=== PATIENT | female | born 1940 | race Caucasian/White ===

== ENCOUNTER 2019-08-16 08:59 | Outpatient (CLI) | payer MEDICARE, SELFPAY ==
--- NOTE | 2019-08-16 09:17 | ECG_ITS ---
Measurements Intervals [place] Rate: 63 P: 76 DE: 203 QRS: 5 QRSD: 89 T: 44 QT: 407 QTc: 417 Interpretive Statements SINUS RHYTHM WITH SINUS ARRHYTHMIA BORDERLINE AV CONDUCTION DELAY MINIMAL Q WAVES- HIGH LATERAL LEADS BASELINE ARTIFACT- I, III, AVL, V5-V6 BORDERLINE ECG Electronically Signed On 08-16-2019 12:05:28 CDT by Pb Alves D.O.
[2019-08-16 12:03] LABS: Blood Urea Nitrogen 18 mg/dL (7-17); Calcium 9.1 mg/dL (8.4-10.2); Carbon Dioxide 23 mmol/L (22-30); Chloride 103 mmol/L (98-107); Estimated Glomerular Filt Rate > 60; Glucose 114 mg/dL (65-105); Potassium 4.3 mmol/L (3.4-5.0); Sodium 133 mmol/L (137-145)
== END 2019-08-16 09:00 | disposition home or self-care (01) ==
PROVIDERS: PCP Internal Medicine; Visit Provider Internal Medicine
DX: I10 Essential (primary) hypertension (principal); I49.8 Other specified cardiac arrhythmias
CPT/HCPCS: 36415; 80048; 93005

== ENCOUNTER 2019-08-31 13:46 | Outpatient (CLI) | payer MEDICARE, SELFPAY ==
--- NOTE | 2019-08-31 14:01 | ECHO_ITS ---
Patient Info Name: Nikia Zeng Age: 79 years : 1940 Gender: Female Ht: 66 in Wt: 145 lbs BSA: 1.76 m2 HR: 71 bpm BP: 176 / 83 mmHg Heart Rhythm: Sinus Rhythm Technical Quality: Good Exam Date: 08/31/2019 2:14 PM Exam Location: [facility] Pulmonary Patient Status: Outpatient Admit Date: 08/31/2019 Staff Ordering Physician: Dante Franklin MD Sales Service Rep: Duran Meza, RDCS, RT Attending Provider: Dante Franklin MD Exam Type: CA echo doppler color flow Study Info Indications I10 - Essential (primary) hypertension Complete two-dimensional, color flow and Doppler transthoracic echocardiogram is performed. Summary 1. Left ventricular chamber dimension is normal. 2. Left ventricular systolic function is normal, estimated at 55-60%. 3. Trivial mitral and pulmonic insufficiency. 4. Thickened appearance to apparent heart. Left Ventricle Left ventricular chamber dimension is normal. Left ventricular systolic function is normal, estimated at 55-60%. The left ventricular diastolic function is normal. Right Ventricle Right ventricular chamber dimension is normal. Left Atria Left atrial chamber dimension is normal. Right Atria Right atrial chamber dimension is normal. Aortic Valve The aortic valve is normal. Pulmonic Valve The pulmonic valve is normal. There is mild pulmonic regurgitation. Mitral Valve The mitral valve has normal leaflets. There is trace mitral valve regurgitation. Tricuspid Valve The tricuspid valve leaflets are normal. Pericardium/Pleural The pericardium appears thickened pericardium. Aorta The aortic root size at the sinus of Valsalva is normal. Left Ventricular Outflow Tract Name Value Normal LVOT 2D LVOT Diameter 2.0 cm LVOT Doppler LVOT Peak Gradient 4 mmHg LVOT Mean Gradient 2 mmHg LVOT VTI 22 cm LVOT VTI/AV VTI Ratio 0.8 LVOT Stroke Volume 68 ml LVOT CO 4.7 l/min LVOT CI 2.7 l/min/m2 Pulmonic Valve Name Value Normal PV Doppler PV Peak Gradient 4 mmHg Mitral Valve Name Value Normal MV Doppler MV Decel Garrett 268 cm/s2 MV PHT 68 ms MV Area (PHT) 3.2 cm2 4.0-5.0 MV Diastolic Function MV E Peak Velocity 63 cm/s MV A Pea
== END 2019-08-31 13:47 | disposition home or self-care (01) ==
PROVIDERS: PCP Internal Medicine; Visit Provider Internal Medicine
DX: R94.31 Abnormal electrocardiogram [ECG] [EKG] (principal); I10 Essential (primary) hypertension
CPT/HCPCS: 93306

== ENCOUNTER 2020-04-09 07:38 | Outpatient (CLI) | payer MEDICARE, SELFPAY ==
[2020-04-09 08:02] LABS: Basophils Absolute Auto 0.1 K/mm3 (0.0-0.1); Basophils Percent Auto 0.9 % (0.2-1.2); Eosinophils Absolute Auto 0.2 K/mm3 (0-0.3); Eosinophils Percent Auto 2.7 % (0-4.4); Hematocrit 38.7 % (37.0-47.0); Hemoglobin 12.3 g/dL (12.0-15.0); Immature Granulocyte Absolute 0.04 K/mm3 (0.00-0.031); Immature Granulocyte Percent A 0.5 % (0-0.5); Lymphocytes Absolute Auto 3.33 K/mm3 (0.9-3.2); Lymphocytes Percent Auto 38.1 % (18.3-44.2); Mean Corpuscular HGB Conc 31.8 g/dl (32-36); Mean Corpuscular Hemoglobin 28.5 pg (26-34); Mean Corpuscular Volume 89.8 fl (80-100); Monocytes Absolute Auto 0.8 K/mm3 (0.1-0.6); Monocytes Percent Auto 8.6 % (2.6-8.5); Neutrophils Absolute Auto 4.3 K/mm3 (1.3-6.7); Neutrophils Percent Auto 49.2 % (45.5-73.1); Platelet Count Result 277 k/mm3 (150-375); Red Blood Count 4.31 M/mm3 (4.2-5.4); Red Cell Distribution Width 13.5 % (11.5-14.5); White Blood Count 8.7 K/mm3 (4.5-10.0)
[2020-04-09 08:07] LABS: Add Urine Microscopic? YES; Appearance Urine Turbid (Clear); Bacteria Urine Trace /hpf; Bilirubin Urine Negative (Negative); Blood Urine 3+ (Negative); Color Urine Yellow (Yellow); Glucose Urine UA Negative (Negative); Ketones Urine Negative (Negative); Leukocyte Esterase Ur 3+ LEU/UL (NEGATIVE); Mucus Urine Rare /lpf; Nitrate Urine Positive (Negative); Protein Urine 3+ mg/dL (Negative); RBC Urine >75 /hpf (0-2); Specific Grav Ur 1.011 (1.001-1.035); Squamous Epithelial Cell Urine Many /hpf (Few); Urobilinogen Urine Negative mg/dL (<2.0); WBC Urine >75 /hpf (0-3)
[2020-04-09 08:19] LABS: Alanine Aminotransferase 18 U/L (4-35); Albumin Level 3.7 g/dL (3.5-5.1); Alkaline Phosphatase 39 U/L (38-126); Anion Gap 6 mmol/L (8-16); Aspartate Amino Transferase 22 U/L (14-36); Bilirubin,Total 0.3 mg/dL (0.2-1.3); Blood Urea Nitrogen 15 mg/dL (7-17); Calcium 9.2 mg/dL (8.4-10.2); Carbon Dioxide 26 mmol/L (22-30); Chloride 107 mmol/L (98-107); Cholesterol 205 mg/dL (0-200); Estimated Glomerular Filt Rate > 60; Glucose 98 mg/dL (65-105); HDL Direct 55 mg/dL; Sodium 139 mmol/L (137-145); Triglycerides 208 mg/dL (<150)
[2020-04-09 08:30] LABS: LDL Cholesterol Direct 123 mg/dL
[2020-04-09 11:28] LABS: Vitamin D 25 Hydroxy 53.3 ng/mL
== END 2020-04-09 07:39 | disposition home or self-care (01) ==
PROVIDERS: PCP Internal Medicine; Visit Provider Internal Medicine
DX: E55.9 Vitamin D deficiency, unspecified (principal); E78.2 Mixed hyperlipidemia; F41.9 Anxiety disorder, unspecified; I10 Essential (primary) hypertension; M81.0 Age-related osteoporosis without current pathological fracture
CPT/HCPCS: 36415; 80053; 80061; 81001; 82306; 84443; 85025

== ENCOUNTER → 2020-04-15 09:25 | Outpatient (REF) | payer MEDICARE, SELFPAY | LOC: ANHLAB 09:25 | PROVIDERS: PCP Internal Medicine; Visit Provider Nurse Practitioner | DX: L98.9 Disorder of the skin and subcutaneous tissue, unspecified (principal); L01.02 Bockhart's impetigo; L57.0 Actinic keratosis | CPT/HCPCS: 88305 ==

== ENCOUNTER 2020-04-24 09:45 | Outpatient (CLI) | payer MEDICARE, SELFPAY ==
[2020-04-24 10:15] LABS: Add Urine Microscopic? YES; Appearance Urine Cloudy (Clear); Bacteria Urine Trace /hpf; Bilirubin Urine Negative (Negative); Blood Urine 3+ (Negative); Color Urine Yellow (Yellow); Glucose Urine UA Negative (Negative); Ketones Urine Negative (Negative); Leukocyte Esterase Ur 3+ LEU/UL (NEGATIVE); Mucus Urine Rare /lpf; Nitrate Urine Positive (Negative); Protein Urine 2+ mg/dL (Negative); RBC Urine >75 /hpf (0-2); Specific Grav Ur 1.009 (1.001-1.035); Squamous Epithelial Cell Urine Many /hpf (Few); Urobilinogen Urine Negative mg/dL (<2.0); WBC Clumps Urine Present /HPF; WBC Urine >75 /hpf (0-3)
== END 2020-04-24 09:46 | disposition home or self-care (01) ==
LOC: ANHLAB 09:46
PROVIDERS: PCP Internal Medicine; Visit Provider Internal Medicine
DX: N39.0 Urinary tract infection, site not specified (principal)
CPT/HCPCS: 81001

== ENCOUNTER 2020-05-27 08:20 | Outpatient (CLI) | payer MEDICARE, SELFPAY ==
--- NOTE | ~2020-05-27 | CT_ITS ---
EXAMINATION: CT abdomen pelvis wo/w con DATE: 05/27/2020 09:38 INDICATION: Gross hematuria TECHNIQUE: Computed tomography (CT) of the abdomen and pelvis was performed without intravenous contr ast. CT of the abdomen and pelvis was then performed with a total of 130 mL Omnipaque 350 intravenous contrast using a double-bolus technique for simultaneous opacification of the renal parenchyma and r enal collecting system. The dose-length product (DLP) was 775.35 mGy-cm. Automated exposure control a nd iterative reconstruction technique were employed. COMPARISON: None FINDINGS: Minimal dependent atelectasis is present in the lung bases. The heart size is normal. There are nodules measuring 5 mm (left lower lobe, image 27) in the visualized lung bases. The liver, sple en, pancreas, gallbladder, and adrenal glands are normal. There is a 12 mm hemorrhagic cyst in the le ft mid kidney. Additional hypoattenuating lesions in the kidneys, measuring up to 5 mm on the right, are too small to characterize but likely represent cysts. No stones are identified in the kidneys, ur eters, or bladder. There is no hydronephrosis or hydroureter. There is a 4.6 x 4.5 cm mass of the rig ht posterior bladder arising from the superior bladder wall. There is no free intraperitoneal gas or evidence of bowel obstruction. No pathologically enlarged abdominal or pelvic lymph nodes are identif ied. Colonic diverticulosis is present without evidence of diverticulitis. Appendix is surgically abs ent. There is a fat-containing ventral hernia just superior to the umbilicus. There is moderate lumba r spondylosis. There is questionable mild enlargement of the cervix. IMPRESSION: 1. 4.6 cm mass arising from the right superior bladder wall, consistent with urothelial carcinoma. 2. Indeterminate of the visualized lower lobes measuring up to 5 mm. 3. Possible enlargement of the cervix. Recommend pelvic ultrasound and/or direct visualization. Reviewed, dictated and finalized at location B. IMPRESSION: 1. 4.6 cm mass arising from the right superior bladder wall, consistent with ur othelial carcinoma. 2. Indeterminate of the visualized lower lobes measuring up to 5 mm. 3. Possible enlargement of the cervix. Recommend pelvic ultrasound and/or direc t visualization.
[2020-05-27 09:12] LABS: Estimated Glomerular Filt Rate 54
== END 2020-05-27 08:21 | disposition home or self-care (01) ==
PROVIDERS: PCP Internal Medicine; Visit Provider Urology
DX: R31.0 Gross hematuria (principal); N32.9 Bladder disorder, unspecified; K43.9 Ventral hernia without obstruction or gangrene; M47.816 Spondylosis without myelopathy or radiculopathy, lumbar region
CPT/HCPCS: 74178; Q9967

== ENCOUNTER 2020-06-10 10:24 | Outpatient (CLI) | payer MEDICARE, SELFPAY ==
[2020-06-10 11:06] LABS: Basophils Absolute Auto 0.1 K/mm3 (0.0-0.1); Basophils Percent Auto 1.1 % (0.2-1.2); Eosinophils Absolute Auto 0.1 K/mm3 (0-0.3); Eosinophils Percent Auto 1.9 % (0-4.4); Hematocrit 40.2 % (37.0-47.0); Hemoglobin 12.6 g/dL (12.0-15.0); Immature Granulocyte Absolute 0.02 K/mm3 (0.00-0.031); Immature Granulocyte Percent A 0.3 % (0-0.5); Immature Platelet Fraction Pct 7.1 % (0.9-11.2); Lymphocytes Absolute Auto 2.66 K/mm3 (0.9-3.2); Lymphocytes Percent Auto 35.3 % (18.3-44.2); Mean Corpuscular HGB Conc 31.3 g/dl (32-36); Mean Corpuscular Hemoglobin 28.5 pg (26-34); Mean Platelet Volume 10.6 fl (7.4-10.4); Monocytes Absolute Auto 0.9 K/mm3 (0.1-0.6); Monocytes Percent Auto 11.3 % (2.6-8.5); Neutrophils Absolute Auto 3.8 K/mm3 (1.3-6.7); Neutrophils Percent Auto 50.1 % (45.5-73.1); Platelet Count Result 284 k/mm3 (150-375); Red Blood Count 4.42 M/mm3 (4.2-5.4); Red Cell Distribution Width 13.8 % (11.5-14.5); White Blood Count 7.5 K/mm3 (4.5-10.0)
[2020-06-10 11:12] LABS: Anion Gap 5 mmol/L (8-16); Blood Urea Nitrogen 16 mg/dL (7-17); Carbon Dioxide 27 mmol/L (22-30); Chloride 103 mmol/L (98-107); Estimated Glomerular Filt Rate > 60; Glucose 95 mg/dL (65-105); Potassium 4.3 mmol/L (3.4-5.0); Sodium 135 mmol/L (137-145)
== END 2020-06-10 10:25 | disposition home or self-care (01) ==
LOC: ANHSURGERY 10:25
PROVIDERS: PCP Internal Medicine; Visit Provider Urology
DX: Z01.812 Encounter for preprocedural laboratory examination (principal); R31.0 Gross hematuria
CPT/HCPCS: 36415; 80048; 85025; 85055; 85610; 85730; 87086

== ENCOUNTER → 2020-06-14 02:05 | Outpatient (CLI) | payer MEDICARE, SELFPAY ==
[2020-06-14 19:16] LABS: SARS-CoV-2 RNA PCR Negative
== END ==
PROVIDERS: PCP Internal Medicine; Visit Provider Urology
DX: Z01.812 Encounter for preprocedural laboratory examination (principal); Z20.822 Contact with and (suspected) exposure to COVID-19
CPT/HCPCS: C9803; U0003; U0005

== ENCOUNTER → 2020-06-16 13:38 | Outpatient (CLI) | payer MEDICARE, SELFPAY ==
--- NOTE | ~2020-06-16 | MM_ITS ---
EXAMINATION: MM screening reed BI w ramses HISTORY: Screening TECHNIQUE: Craniocaudal and mediolateral oblique 3-D tomosynthesis images were obtained and synthetic 2-D images were generated. CAD analysis was submitted and interpreted. COMPARISON: Comparison to multiple prior studies sequentially, with oldest reviewed study dated 03/13. BREAST PARENCHYMAL COMPOSITION: The breasts are heterogeneously dense, which may obscure small masses . FINDINGS: There is no evidence of suspicious mass, calcification, or architectural distortion to sugg est malignancy in either breast. There has been no suspicious interval change. IMPRESSION: 1. No mammographic evidence of malignancy. 2. Recommend routine screening mammography in one year. BI-RADS Category 1: Negative Reviewed, dictated and finalized at location A.
== END ==
PROVIDERS: PCP Internal Medicine; Visit Provider Nurse Practitioner Obstetrics & Gynecology
DX: Z12.31 Encounter for screening mammogram for malignant neoplasm of breast (principal)
CPT/HCPCS: 77063; 77067

== ENCOUNTER 2020-06-17 00:47 | Day surgery (SDC) | payer MEDICARE, SELFPAY ==
[2020-06-05 13:32] VITALS: BMI 23.1
[2020-06-17] VITALS (12 sets, daily range): BP systolic 117–150; BP diastolic 53–71; PULSE 51–74; RESP 12–17; TEMP 36.3–36.7; O2SAT 97–100
--- NOTE | 2020-06-17 11:40 | WPDHPUPDATE1 ---
History and Physical Update Update Date/Time: 06/17/20 11:40 History and Physical has been reviewed, including an updated exam of the patient. There are NO changes in the patient's condition. Risks, benefits, and alternatives have been discussed and questions answered. Patient agrees to proceed with procedure. Proceed with transurethral resection of bladder
[2020-06-17] MEDS: LACTATED RINGERS 1,000 ML 30 ML IV CONT (11:51)
--- NOTE | 2020-06-17 11:56 | WPDANESEPPF ---
Anes - Initial Pre Proc Eval Procedure: Operation Date: 06/17/20 12:45 Proposed Procedures p Trans Urethral Resection Bladder Tumor - Abelino Wall MD Date/Time: 06/17/20 11:56 Surgeon: Abelino Wall MD Pre Op Diagnosis: gross hematuria Patient Data Age: 79 Gender: F Height: 5 ft 6.5 in Weight: 66 kg Allergies Allergy/AdvReac Type Severity Reaction Status Date / Time No Known Allergies Allergy Verified 06/05/20 13:22 Home Medications Medication Instructions Recorded Confirmed Type aspirin 81 mg tablet,delayed 81 mg PO DAILY 04/24/19 06/05/20 History release cholecalciferol (vitamin D3) 10 400 unit PO DAILY 04/24/19 06/05/20 History mcg (400 unit) capsule loratadine 10 mg tablet 10 mg PO DAILY PRN 04/24/19 06/05/20 History magnesium oxide 400 mg PO DAILY 04/24/19 06/05/20 History raloxifene 60 mg tablet 60 mg PO DAILY 04/24/19 06/05/20 History B-complex with vitamin C 1 tablet PO DAILY 08/14/19 06/05/20 History [id number]-[id number]-mzn C-Mn 1 cap PO DAILY 08/14/19 06/05/20 History capsule alprazolam 0.25 mg tablet 0.25 mg PO DAILY PRN #30 tablet 08/21/19 06/05/20 Rx Bystolic 5 mg PO QACLUNCH 06/05/20 06/05/20 History ciprofloxacin HCl 500 mg PO BID 06/05/20 06/05/20 History conjugated estrogens [Premarin] 1 applic VAGINAL DIRECTED 06/05/20 06/05/20 History lactobacillus combination no.8 3,000 mmu cells PO DAILY 06/05/20 06/05/20 History [Adult Probiotic] lisinopril 20 mg PO QAM 06/05/20 06/05/20 History omega-3 fatty acids-vitamin E 1 cap PO DAILY 06/05/20 06/05/20 History [Fish Oil] Patient hx anesthesia problems: none Family hx anesthesia problems: none PMFSH Past Medical History Medical History Anxiety Bladder cancer Essential hypertension Surgical History Surgical History History of appendectomy History of knee surgery Social History Social History Smoking status: Never smoker Alcohol intake: current Substance use: never Living arrangements: with family Additional living arrangements comments: Spiritual care concerns: No Anes - Eval Final PreProcedure Day of Procedure 06/17/20 11:56 Patient weight: normal Heart: regular rate and rhythm Lungs: clear to auscultation Airway: Mallampati scale class II Neurological: alert and oriented Last oral intake: >/= 8 hours ASA classification: III Emergent: no Anesthetic plan: proceed Anesthesia type and monitoring: general LMA and standard monitoring Informed Consent: The patient's anesthetic plan and its attendant risks and benefits were discussed with the patient/family/POA. Questions were solicited and answers provided to the satisfaction of the patient/family/POA.
[2020-06-17] MEDS: ceFAZolin 2 GM/D5W 50 ML 2 GM/50 ML BAG IVPB (12:03)
--- NOTE | 2020-06-17 12:10 | SUR.PREOP ---
DR. PINZON AWARE OF PENDING PT/PTT UPON TRANSFER TO OR. PT STOPPED ASA 2 WKS AGO. OK TO PROCEED.
[2020-06-17 12:17] LABS: Prothrombin Time 13.6 Seconds (11.1-14.7)
[2020-06-17 12:18] LABS: Partial Thromboplastin Time 24.7 SECONDS (22.3-36.8)
[2020-06-17] MEDS: LIDOCAINE HCL 2% GEL UROJET 10 ML PKG MUCOUS MEM (12:22)
--- NOTE | 2020-06-17 13:14 | PM.PROC ---
Procedure Note - Detailed Date of procedure: 06/17/20 Pre-op diagnosis: gross hematuria Bladder tumor large greater than 5 cm Post-op diagnosis: same Procedure performed: Transurethral section of a large bladder tumor greater than 5 cm Description of procedure: Patient is taken the operative suite and correctly identified. Once anesthesia was obtained she was placed in dorsal lithotomy position and prepped and draped usual sterile fashion. Twenty-four Bulgarian resectoscope sheath inserted the bladder. She has a well-circumscribed lesion along the posterior wall on the right. It was fairly hard in nature. We resected this down to the base. It has a very broad-based base area. We used a roller bar for hemostasis. At the termination there appeared to be good hemostasis. But given the large nature of the bladder tumor we decided to place a 22 three-way Yan keep her overnight for irrigation. She is taken recovery room stable condition. Anesthesia: GLMA Surgeon: Abelino Wall MD Estimated blood loss (mL): 25 Drains: Yes Packing: No Pathology: yes Complications: No immediate complications Condition: stable Disposition: PACU
[2020-06-17] MEDS: fentaNYL CITRATE INJ (*CRX) 100 MCG/2 ML VIAL 25 MCG IV PUSH ×4 (13:42→14:03)
[2020-06-17] MEDS: HYOSCYAMINE SULFATE 0.125 MG TABLET PO (13:59)
[2020-06-17] MEDS: DEXTROSE 5%/LACTATED RINGERS 1,000 ML 125 ML IV CONT (15:07)
--- NOTE | 2020-06-17 15:13 | ADMGEN ---
This patient, Nikia Zeng, was admitted to [facility]. Report received from GARY Awad. Patient/family oriented to hospital policies and general routines including ID bracelet, bed and alarms, visiting hours, pain management, procedures, bathroom and other care routines, personal items, smoking policy, room service/diet, and visiting hours. Information on how to activate the Rapid Response Team has been discussed. Patient/Family are encouraged to report perceived risks to care and to ask questions if they do not understand what they are told or what they should do.
[2020-06-17] MEDS: HYDROcodone/acetaminophen (*CRX) 5-325 MG TABLET 1 TAB PO (16:32)
[2020-06-17] MEDS: DOCUSATE SODIUM 100 MG CAPSULE PO (21:06)
[2020-06-18] VITALS: BP 107/96; PULSE 63; RESP 18; TEMP 36.4; O2SAT 100
[2020-06-18] MEDS: HYDROcodone/acetaminophen (*CRX) 5-325 MG TABLET 1 TAB PO (00:06)
[2020-06-18 04:00] VITALS: BP 117/52; PULSE 60; RESP 18; TEMP 36.1; O2SAT 97
[2020-06-18 05:58] LABS: Hematocrit 34.5 % (37.0-47.0); Hemoglobin 11.1 g/dL (12.0-15.0)
[2020-06-18 06:29] LABS: Anion Gap 3 mmol/L (8-16); Blood Urea Nitrogen 12 mg/dL (7-17); Calcium 8.7 mg/dL (8.4-10.2); Carbon Dioxide 26 mmol/L (22-30); Chloride 107 mmol/L (98-107); Estimated CRCL calculation 48 ml/min; Estimated Glomerular Filt Rate > 60; Glucose 109 mg/dL (65-105); Potassium 4.4 mmol/L (3.4-5.0); Sodium 136 mmol/L (137-145)
--- NOTE | 2020-06-18 07:37 | WPDUROPN2 ---
Progress Note: A&P Assessment and Plan (1) Lesion of bladder: Code(s): N32.9 - Bladder disorder, unspecified Status: Acute Assessment and Plan: Doing well after resection of large bladder tumor. Urine is clear. Will discharge home later this afternoon if urine remains clear. We will have Yan removed on Tuesday. Further recommendations will be made pending her final pathology. Subjective Subjective Date/Time Seen: 06/18/20 07:37 Post Op day: 1 ( TURBT of large bladder tumor) Principal diagnosis: bladder mass Interval history: doing well this morning without complaints. Urine clear with no CBI. Review of Systems Review of Systems: All systems reviewed & are unremarkable except as noted in HPI and below Exam Const: General: cooperative and comfortable Chest: Chest palpation & inspection: normal inspection of the chest Resp: Effort & Inspection: normal respiratory effort Cardio: Rate: regular rate Rhythm: regular rhythm GI: GI Palp: Yes Soft to palpation Urinary Catheter: Urinary Catheter: patent and draining and urine clear Objective Data Vital Signs Vital Signs: Vital Signs - 24 hr 06/17/20 11:30 06/17/20 13:15 06/17/20 13:36 Temperature 36.5 C 36.7 C Pulse Rate 66 54 L 55 L Respiratory Rate 16 15 14 Blood Pressure 149/55 H 135/64 140/68 Pulse Oximetry 100 100 100 06/17/20 13:45 06/17/20 14:01 06/17/20 14:15 Temperature Pulse Rate 56 L 57 L 51 L Respiratory Rate 12 14 17 Blood Pressure 145/66 H 145/66 H 150/65 H Pulse Oximetry 100 97 99 06/17/20 14:30 06/17/20 14:45 06/17/20 15:00 Temperature 36.4 C L 36.4 C L Pulse Rate 56 L 58 L 63 Respiratory Rate 15 16 16 Blood Pressure 150/64 H 128/66 141/71 H Pulse Oximetry 100 99 98 06/17/20 15:30 06/17/20 16:30 06/17/20 20:22 Temperature 36.4 C 36.7 C 36.3 C L Pulse Rate 54 L 74 63 Respiratory Rate 16 16 16 Blood Pressure 135/69 135/71 117/53 L Pulse Oximetry 97 98 100 06/18/20 00:00 06/18/20 04:00 Temperature 36.4 C 36.1 C L Pulse Rate 63 60 Respiratory Rate 18 18 Blood Pressure 107/96 H 117/52 L Pulse Oximetry 100 97 Intake/Output Intake/Output: Intake & Output 06/15/20 06/16/20 06/17/20 06/18/20 23:59 23:59 23:59 23:59 Intake Total 5630 50 Output Total 1825 Balance 3805 50 Meds/Results Medications: Active Medications Generic Name Dose Route Start Last Admin Trade Name Freq PRN Reason Stop Dose Admin Hydrocodone Bitart/Acetaminophen 1 tab 06/17/20 14:37 06/18/20 00:06 Hydrocodone/Acetaminophen (*Crx) 5-325 Mg Tablet PO 1 tab Q4H PRN Administration Pain Rated 1-6 Alprazolam 0.25 mg 06/17/20 14:37 Alprazolam (*Crx) 0.25 Mg Tablet PO DAILY PRN anxiety Cephalexin HCl 500 mg 06/18/20 09:00 Cephalexin 500 Mg Capsule PO QID JULIETTE Docusate Sodium 100 mg 06/17/20 21:00 06/17/20 21:06 Docusate Sodium 100 Mg Capsule PO 100 mg Q12HR JULIETTE Administration Hyoscyamine 0.125 mg 06/17/20 14:37 Hyoscyamine Sulfate 0.125 Mg Tablet SUBLINGUAL Q6H PRN Bladder Spasm Dextrose/Lactated Ringer's 1,000 mls @ 125 mls/hr 06/17/20 14:37 06/17/20 22:45 Dextrose 5%/Lactated Ringers IV CONT Infused .Q8H JULIETTE Infusion Lisinopril 20 mg 06/18/20 09:00 Lisinopril 20 Mg Tablet PO QAM JULIETTE Loratadine 10 mg 06/17/20 14:37 Loratadine 10 Mg Tablet PO DAILY PRN Congestion Morphine Sulfate 2 mg 06/17/20 14:37 Morphine Sulfate (*Crx) 2 Mg/Ml Inj IV PUSH Q2H PRN Pain Rated 7-10 Naloxone HCl 0.1 mg 06/17/20 14:37 Naloxone Hcl 0.4 Mg/Ml Vial IV PUSH Q2M PRN Opiate Reversal Nebivolol 5 mg 06/18/20 12:00 Nebivolol Hcl 5 Mg Tablet PO NOON JULIETTE Ondansetron HCl 4 mg 06/17/20 14:37 Ondansetron Inj 4 Mg/2 Ml Vial IV PUSH Q12H PRN Nausea And Vomiting Labs Labs: Laboratory Results - last 24 hr 06/17/20 06/18/20 06/18/20 11:52 05:44 05:44 H
[2020-06-18] MEDS: DOCUSATE SODIUM 100 MG CAPSULE PO (07:59)
[2020-06-18] MEDS: CEPHALEXIN 500 MG CAPSULE PO (07:59)
[2020-06-18] MEDS: lisinopriL 20 MG TABLET PO (07:59)
[2020-06-18 08:00] VITALS: BP 130/52; PULSE 61; RESP 18; TEMP 36.8; O2SAT 100
--- NOTE | 2020-06-18 09:33 | WPDANESPN ---
Anes - Prog Note Post-Op Date/Time: 06/18/20 09:33 Cardiovascular status: normal Respiratory status: normal Airway patency: baseline Mental status: baseline Post-Op hydration status: normal Vital Signs: Last Vital Signs Temp 36.8 C 06/18/20 08:00 Pulse 61 06/18/20 08:00 Resp 18 06/18/20 08:00 BP 130/52 L 06/18/20 08:00 Pulse Ox 100 06/18/20 08:00 Pain Score (VAS): 210 I/O: Intake & Output 06/17/20 06/18/20 06/18/20 23:59 07:59 15:59 Intake Total 2130 50 240 Output Total 1625 Balance 505 50 240 Laboratory Tests 06/18/20 05:44 06/18/20 05:44 06/17/20 06/18/20 06/18/20 11:52 05:44 05:44 Hgb 11.1 L Hct 34.5 L PT 13.6 INR 1.0 APTT 24.7 Sodium 136 L Potassium 4.4 Chloride 107 Carbon Dioxide 26 Anion Gap 3 L BUN 12 Creatinine 0.80 Estim Creat Clear Calc 48 Estimated GFR > 60 Glucose 109 H Calcium 8.7 Post-procedural complaints: none Patient Feedback: Patient satisfied with anesthetic care.
--- NOTE | 2020-06-18 19:32 | PC.NURSE ---
Patient called to unit to inquire advice about bloody urine. Patient stated that urine is more of a pink color rather than dark red. This RN discussed with patient that pink urine is usually nothing to worry about. Instructed patient to seek medical attention if they feel necessary. This RN gave the number to urologist to the patient that was written in the discharge packet.
== END 2020-06-18 11:00 | disposition home or self-care (01) ==
LOC: ANHSURGERY 10:49 → ANH3MEDSUR 15:19
PROVIDERS: PCP Internal Medicine; Visit Provider Urology
PROC: 0TBB8ZZ Excision of Bladder, Via Natural or Artificial Opening Endoscopic (ICD-10-PCS; CPT 52240; principal; 2020-06-17 12:45)
DX: C67.4 Malignant neoplasm of posterior wall of bladder (principal); I10 Essential (primary) hypertension; F41.9 Anxiety disorder, unspecified; Z79.82 Long term (current) use of aspirin
CPT/HCPCS: 52240; 36415; 80048; 85014; 85018; 85025; 85055; 85610; 85730; 87086; 88305; 88342; A9270; C9803; J0690; J1100; J2405; J2704; J3010; J7120; J7121; U0003; U0005

== ENCOUNTER 2020-07-02 09:50 | Outpatient (CLI) | payer MEDICARE, SELFPAY ==
--- NOTE | ~2020-07-02 | CT_ITS ---
EXAMINATION: CT diagnostic chest w con EXAM DATE: 07/02/2020 10:15 INDICATION: Bladder cancer. TECHNIQUE: Spiral CT of the chest following intravenous injection of 75 mL Omnipaque 350. Axial, cor onal and sagittal images of the chest were reviewed. Coronal maximum intensity pixel images of chest reviewed. The dose-length product (DLP) for this examination was 120.78 mGy-cm. The exposure was t ailored according to patient size (auto mA exposure control), and iterative reconstruction (ASIR) was used as additional dose reduction technique. There is no prior study for comparison. FINDINGS: There is mild bronchiectasis. Mild emphysema. Lingular subsegmental atelectasis. There ar e no pleural or pericardial effusions. Tracheobronchial tree is patent. There is no mediastinal, hilar or axillary lymphadenopathy. There is no pneumothorax. Heart normal in size. No evidence of coronary arterial calcification. There is hepatic steatosis. There is thoracic spondylosis witho ut osteoblastic or osteolytic lesions identified. IMPRESSION: 1. Mild emphysema and bronchiectasis. 2. Lingular subsegmental atelectasis. Reviewed, dictated and finalized at location A.
== END 2020-07-02 09:51 | disposition home or self-care (01) ==
PROVIDERS: PCP Internal Medicine; Visit Provider Urology
DX: C67.4 Malignant neoplasm of posterior wall of bladder (principal); J43.9 Emphysema, unspecified; J98.11 Atelectasis
CPT/HCPCS: 71260; Q9967

== ENCOUNTER → 2020-08-02 00:36 | Outpatient (CLI) | payer MEDICARE, SELFPAY ==
[2020-08-02 19:26] LABS: SARS-CoV-2 RNA PCR Negative
== END ==
PROVIDERS: PCP Internal Medicine; Visit Provider Surgery
DX: Z01.812 Encounter for preprocedural laboratory examination (principal); Z20.822 Contact with and (suspected) exposure to COVID-19
CPT/HCPCS: C9803; U0003; U0005

== ENCOUNTER 2020-08-02 09:41 | Outpatient (CLI) | payer MEDICARE, SELFPAY ==
[2020-08-02 10:29] LABS: Basophils Percent Auto 0.2 % (0.2-1.2); Eosinophils Percent Auto 0.2 % (0-4.4); Hematocrit 34.9 % (37.0-47.0); Hemoglobin 11.3 g/dL (12.0-15.0); Immature Granulocyte Absolute 0.05 K/mm3 (0.00-0.031); Immature Granulocyte Percent A 0.4 % (0-0.5); Lymphocytes Absolute Auto 2.67 K/mm3 (0.9-3.2); Lymphocytes Percent Auto 23.3 % (18.3-44.2); Mean Corpuscular HGB Conc 32.4 g/dl (32-36); Mean Corpuscular Volume 89.5 fl (80-100); Mean Platelet Volume 10.5 fl (7.4-10.4); Monocytes Absolute Auto 0.6 K/mm3 (0.1-0.6); Monocytes Percent Auto 4.9 % (2.6-8.5); Neutrophils Absolute Auto 8.1 K/mm3 (1.3-6.7); Platelet Count Result 281 k/mm3 (150-375); Red Cell Distribution Width 13.2 % (11.5-14.5); White Blood Count 11.5 K/mm3 (4.5-10.0)
== END 2020-08-02 09:42 | disposition home or self-care (01) ==
PROVIDERS: PCP Internal Medicine; Visit Provider Surgery
DX: Z01.812 Encounter for preprocedural laboratory examination (principal); C67.9 Malignant neoplasm of bladder, unspecified
CPT/HCPCS: 36415; 85025

== ENCOUNTER 2020-08-06 01:51 | Day surgery (SDC) | payer MEDICARE, SELFPAY ==
[2020-08-01 10:27] VITALS: BMI 23.1
--- NOTE | 2020-08-05 13:44 | WPDANESEPPF ---
Anes - Initial Pre Proc Eval Procedure: Operation Date: 08/06/20 15:00 Proposed Procedures p Insertion Raul Cath - Philip Hardy MD Date/Time: 08/05/20 13:44 Surgeon: Philip Hardy MD Pre Op Diagnosis: malig neoplasm of urinary bladder Patient Data Age: 80 Gender: F Height: 1.69 m Weight: 66 kg Allergies Allergy/AdvReac Type Severity Reaction Status Date / Time No Known Allergies Allergy Verified 08/06/20 13:14 Home Medications Medication Instructions Recorded Confirmed Type aspirin 81 mg tablet,delayed 81 mg PO HS 04/24/19 08/06/20 History release cholecalciferol (vitamin D3) 10 400 unit PO DAILY 04/24/19 08/06/20 History mcg (400 unit) capsule loratadine 10 mg tablet 10 mg PO DAILY PRN 04/24/19 08/06/20 History magnesium oxide 400 mg PO DAILY 04/24/19 08/06/20 History raloxifene 60 mg tablet 60 mg PO DAILY 04/24/19 08/06/20 History B-complex with vitamin C 1 tablet PO DAILY 08/14/19 08/06/20 History vfwbkqguxqe-rvjclqhih-wir C-Mn 1 cap PO DAILY 08/14/19 08/06/20 History capsule alprazolam 0.25 mg tablet 0.25 mg PO DAILY PRN #30 tablet 08/21/19 08/06/20 Rx Adult Probiotic 3,000 mmu cells PO DAILY 06/05/20 08/06/20 History Premarin 1 applic VAGINAL DIRECTED 06/05/20 08/06/20 History lisinopril 20 mg PO QAM 06/05/20 08/06/20 History omega-3 fatty acids-vitamin E 1 cap PO DAILY 06/05/20 08/06/20 History docusate sodium 100 mg PO Q12HR #10 cap 06/18/20 08/06/20 Rx hyoscyamine sulfate [Anaspaz] 0.125 mg SUBLINGUAL Q6H PRN #20 06/18/20 08/06/20 Rx tablet nebivolol 5 mg tablet 5 mg PO QACLUNCH #90 tablet 08/01/20 08/06/20 Rx ondansetron HCl [Zofran] 4 mg PO Q6H PRN 08/01/20 08/06/20 History Patient hx anesthesia problems: none Family hx anesthesia problems: none PMFSH Past Medical History Medical History Anxiety Bladder cancer Essential hypertension Surgical History Surgical History History of appendectomy History of knee surgery Social History Social History Smoking status: Never smoker Second hand tobacco smoke exposure: No Alcohol intake: current Alcohol use details: STATES MAYBE 2-3 DRINKS A YEAR Substance use: never Substance use type: does not use Living arrangements: with family Additional living arrangements comments: Spiritual care concerns: No Anes - Eval Final PreProcedure Day of Procedure 08/05/20 13:44 Patient weight: normal Heart: regular rate and rhythm Lungs: clear to auscultation and normal air movement Airway: Mallampati scale class II Neurological: alert and oriented Last oral intake: >/= 8 hours ASA classification: III Emergent: no Anesthetic plan: proceed Anesthesia type and monitoring: general GIVS and LMA Informed Consent: The patient's anesthetic plan and its attendant risks and benefits were discussed with the patient/family/POA. Questions were solicited and answers provided to the satisfaction of the patient/family/POA.
--- NOTE | ~2020-08-06 | XR_ITS ---
EXAMINATION: XR fl guide central line place DATE: 08/06/2020 15:32 INDICATION: Port placement. TECHNIQUE: A single intraoperative fluoroscopic view of the chest was obtained. I was not present. Fl uoroscopy exposure time was 40 seconds. COMPARISON: Chest CT 07/02/2020 FINDINGS: There is a right internal jugular port with tip at superior cavoatrial junction. IMPRESSION: 1. Port tip at superior cavoatrial junction. Reviewed, dictated and finalized at location A.
--- NOTE | ~2020-08-06 | XR_ITS ---
XR chest port-a-cath/central 08/06/2020 16:02 Indication: Shortness of breath Procedure: AP portable chest Comparison: 09/09/2006 Findings: Portacatheter tip in the SVC. Cardiomegaly. No focal air space disease, pulmonary edema, pl eural effusion or suspected pneumothorax. No acute osseous abnormality. Impression: 1: No acute cardiopulmonary disease. Reviewed, dictated and finalized at location B. Impression: 1: No acute cardiopulmonary disease.
--- NOTE | 2020-08-06 08:07 | PM.HPGS ---
History of Present Illness History of Present Illness Consent: Risks, benefits, and alternatives of placement of a Port-A-Cath have been discussed and questions answered. Patient agrees to proceed with procedure. Chief complaint: malig neoplasm of urinary bladder Narrative: Nikia Zeng is a 80 year old female has known invasive cancer of the urinary bladder. Dr. leigh Centeno is planning on proceeding with chemotherapy and therefore I have been asked to place a Port-A-Cath for use in this treatment. Patient has visited with Dr. Pepe Gottlieb and gone over the risks benefits possible complications of preoperative treatment for her localize muscle invasive bladder cancer the posterior wall of the urinary bladder. She has no evidence of regional or distant metastatic disease and therefore finding on preoperative chemotherapy with him. Review of Systems Constitutional: Constitutional: Reports no additional constitutional complaints, Reports fatigue and Denies malaise Eyes: Eyes: Denies change in vision and Denies loss of vision ENT: Reports Normal hearing present, Denies change in voice, Denies dizziness, Denies hoarseness and Denies sore throat Cardiovascular: Cardiovascular: Denies chest pain, Denies leg edema and Denies dyspnea Respiratory: Respiratory: Denies cough, Denies dyspnea and Denies wheezing Gastrointestinal: Gastrointestinal: Denies hematochezia, Denies change in bowel habits and Denies heartburn Comments: History of previous colonoscopies and also appendectomy. Genitourinary: Genitourinary: Denies urinary frequency and Denies urinary incontinence Comments: Patient was discovered to have a tumor in the urinary bladder. This was resected and pathologically evaluated by Dr. Wall using the cystoscope a few months ago. Patient has been evaluated and now is planning to continue with treatment with preoperative chemo therapy followed by further resection following the initial non-curative treatment. Neurologic: Reports Normal hearing present, Denies confusion, Denies dizziness, Denies loss of vision, Denies memory loss and Denies seizure-like activity Psychiatric: Psychiatric: Denies confusion, Denies depression and Denies memory loss Endocrine: Endocrine: Denies cold intolerance and Reports fatigue Hematologic/Lymphatic: Hematologic/Lymphatic: Denies easy bleeding and Denies easy bruising Allergic/Immunologic: Allergic/Immunologic: Denies wheezing PMFSH Past Medical History Medical History Anxiety Bladder cancer Essential hypertension Surgical History Surgical History History of appendectomy History of knee surgery Social History Social History Smoking status: Never smoker Second hand tobacco smoke exposure: No Alcohol intake: current Alcohol use details: STATES MAYBE 2-3 DRINKS A YEAR Substance use: never Substance use type: does not use Living arrangements: with family Additional living arrangements comments: Spiritual care concerns: No Meds Home Medications and Allergies Home Medications Medication Instructions Recorded Confirmed Type aspirin 81 mg tablet,delayed 81 mg PO HS 04/24/19 08/06/20 History release cholecalciferol (vitamin D3) 10 400 unit PO DAILY 04/24/19 08/06/20 History mcg (400 unit) capsule loratadine 10 mg tablet 10 mg PO DAILY PRN 04/24/19 08/06/20 History magnesium oxide 400 mg PO DAILY 04/24/19 08/06/20 History raloxifene 60 mg tablet 60 mg PO DAILY 04/24/19 08/06/20 History B-complex with vitamin C 1 tablet PO DAILY 08/14/19 08/06/20 History wsmndrbofmi-olcuqfnve-cax C-Mn 1 cap PO DAILY 08/14/19 08/06/20 History capsule alprazolam 0.25 mg tablet 0.25 mg PO DAILY PRN #30 tablet 08/21/19 08/06/20 Rx Adult Probiotic 3,000 mmu cells PO DAILY 06/05/20 08/06/20 History Elizabeth
[2020-08-06 12:56] VITALS: BP 138/66; PULSE 76; RESP 16; TEMP 36.3; O2SAT 100
[2020-08-06] MEDS: KETOROLAC 15 MG/ML VIAL (*BKC) IV PUSH (13:33)
[2020-08-06] MEDS: LACTATED RINGERS 1,000 ML 30 ML IV CONT ×2 (13:33→15:52)
--- NOTE | 2020-08-06 14:14 | WPDHPUPDATE1 ---
History and Physical Update Update Date/Time: 08/06/20 14:14 History and Physical has been reviewed, including an updated exam of the patient. There are NO changes in the patient's condition. Risks, benefits, and alternatives have been discussed and questions answered. Patient agrees to proceed with procedure.
[2020-08-06] MEDS: ceFAZolin 2 GM/D5W 50 ML 2 GM/50 ML BAG IVPB (14:45)
[2020-08-06] MEDS: HEPARIN SODIUM 5,000 UNITS/ML VIAL 5000 UNITS IRRIGATION (15:20)
--- NOTE | 2020-08-06 15:40 | W.PM.PROC2 ---
Procedure Note - Detailed Date of Procedure 08/06/20 Pre-op Diagnosis malig neoplasm of urinary bladder Post-op Diagnosis same Procedure Performed Ultrasound guided Placement of Raul-cath Surgeon Philip Hardy MD Coiled Tubing Operator Lissa VEGA.OR hotel assistant manager Anesthesia local (with 0.5% Marcaine with epinepherine) and other (GIVS with an LMA) Indications Patient has an invasive cancer of the urinary bladder. She will beginning preoperative chemotherapy prior to a cystectomy. Findings Normal vascular anatomy by ultrasound in the right neck. Description of Procedure Patient was seen and marked in the pre-op area prior to coming to the OR. Patient was brought to the operating room. Patient was placed supine on the operating table and general IV sedation was induced. The nurse x ray developer provided oxygen and IV sedation (as GIVS with a LMA). Patient's head was carefully turned to the left side while in the supine position and the patient's entire neck and anterior chest on both sides was prepped and draped in the usual sterile fashion. Following this the appropriate time-out was completed confirming procedure and patient. We confirmed that all the needed equipment was present in the room. Following this the ultrasound probe was draped into the field and using the probe we carefully identified the carotid artery and jugular vein on the right neck. We then took a picture of the vascular anatomy of the neck and transferred from the ultrasound to the SciAps chart. I marked the skin directly over the Rt. internal jugular vein. I then used an 11 blade knife to make a small jaleel in the skin. Following this, using the continuous ultrasound guidance, a Cook needle was placed through the skin incision and on into this vein. I then was able to draw back good dark blood. Once this was completed a guidewire using a J-tip was advanced through the needle and then the needle and the guidewire cover were withdrawn. C-arm fluoroscopy was used to confirm that the guidewire was nicely in the venous system. Once this was confirmed with the C - arm, I preceded on by making the pocket for the port on the patient's anterior right chest approximately 3 centimeters below the clavicle overlying the chest wall. Local anesthetic was infiltrated into the skin where there was a transverse incision marked out. Incision was made and we made a pocket inferior to the incision with just a little dissection superior. The Bard low-profile port was tried in the pocket and seemed to fit well. Following this the catheter which had been placed on a tunneling device was tunneled from the port site on the anterior right chest up to the right neck where the small incision had been made slightly larger with an #11 blade knife. Then the catheter was pulled through so that we would have 15 centimeters to put into the central venous system once the dilation took place. Following this we placed the dilator and sheath over the guidewire in the jugular vein and carefully dilated the tract into the central venous system. The guidewire and dilator were then removed, carefully covering the end of the sheath to prevent air embolus. The end of the catheter which had been removed from the tunneling device and the tip checked was then inserted into the sheath and into the neck. I then carefully pulled the 2 arms of the tear-away sheath away as the clinical lab assistant held the catheter in position with a DeBakey forceps. Following this we checked the position of the catheter with C-arm fluoroscopy confirming that the tip seemed to be in the distal superior vena cava near the junction with the right atrium. I felt that it was in good position and so the rest of the catheter was pulled down toward the feet into the port site. We then measured to the appropriate position to cut the catheter to attach it to the port stem. Then the connector sealing device for the catheter port was placed onto the catheter and then the catheter
[2020-08-06 15:55] VITALS: BP 132/61; PULSE 65; RESP 12; O2SAT 100
--- NOTE | 2020-08-06 16:19 | SUR.PHASEII ---
1610 radiology at bedside for rt upper chest xray per dr womack.
--- NOTE | 2020-08-06 16:20 | SUR.PHASEII ---
[address] womack on xray result, patient ok to eat and drink and be discharged home per anesthesia protocol
[2020-08-06 16:40] VITALS: BP 122/64; PULSE 65; RESP 16
== END 2020-08-06 17:00 | disposition home or self-care (01) ==
PROVIDERS: PCP Internal Medicine; Visit Provider Surgery
PROC: (CPT 36561; principal; 2020-08-06 15:00)
DX: C67.9 Malignant neoplasm of bladder, unspecified (principal); I10 Essential (primary) hypertension; F41.9 Anxiety disorder, unspecified; Z79.82 Long term (current) use of aspirin
CPT/HCPCS: 36561; 36415; 76937; 77001; 85025; C1788; C9803; J0690; J1644; J1885; J2704; J3010; J7030; J7120; U0003; U0005

== ENCOUNTER 2020-08-15 08:18 | Outpatient (CLI) | payer MEDICARE, SELFPAY ==
[2020-08-15 09:51] LABS: Eosinophils Absolute Auto 0.1 K/mm3 (0-0.3); Eosinophils Percent Auto 1.5 % (0-4.4); Hematocrit 35.5 % (37.0-47.0); Hemoglobin 11.4 g/dL (12.0-15.0); Immature Granulocyte Absolute 0.01 K/mm3 (0.00-0.031); Immature Granulocyte Percent A 0.2 % (0-0.5); Lymphocytes Absolute Auto 1.66 K/mm3 (0.9-3.2); Lymphocytes Percent Auto 40.3 % (18.3-44.2); Mean Corpuscular HGB Conc 32.1 g/dl (32-36); Mean Corpuscular Hemoglobin 28.6 pg (26-34); Mean Platelet Volume 9.4 fl (7.4-10.4); Monocytes Absolute Auto 0.2 K/mm3 (0.1-0.6); Monocytes Percent Auto 5.8 % (2.6-8.5); Neutrophils Absolute Auto 2.1 K/mm3 (1.3-6.7); Neutrophils Percent Auto 51.2 % (45.5-73.1); Platelet Count Result 109 k/mm3 (150-375); Red Blood Count 3.99 M/mm3 (4.2-5.4); Red Cell Distribution Width 12.8 % (11.5-14.5); White Blood Count 4.1 K/mm3 (4.5-10.0)
[2020-08-15 10:07] LABS: Anion Gap 6 mmol/L (8-16); Blood Urea Nitrogen 13 mg/dL (7-17); Calcium 9.4 mg/dL (8.4-10.2); Carbon Dioxide 26 mmol/L (22-30); Chloride 102 mmol/L (98-107); Estimated Glomerular Filt Rate 53; Glucose 112 mg/dL (65-105); Potassium 4.7 mmol/L (3.4-5.0); Sodium 134 mmol/L (137-145)
== END 2020-08-15 08:19 | disposition home or self-care (01) ==
LOC: ANHLAB 08:22
PROVIDERS: PCP Internal Medicine; Visit Provider Internal Medicine Medical Oncology
DX: C67.9 Malignant neoplasm of bladder, unspecified (principal)
CPT/HCPCS: 36415; 80048; 85025

== ENCOUNTER 2020-09-01 14:03 | Outpatient (CLI) | payer MEDICARE, SELFPAY ==
[2020-09-01 14:35] LABS: Basophils Percent Auto 0.8 % (0.2-1.2); Eosinophils Percent Auto 0.8 % (0-4.4); Hematocrit 32.4 % (37.0-47.0); Hemoglobin 10.5 g/dL (12.0-15.0); Immature Granulocyte Absolute 0.01 K/mm3 (0.00-0.031); Immature Granulocyte Percent A 0.2 % (0-0.5); Lymphocytes Absolute Auto 2.27 K/mm3 (0.9-3.2); Lymphocytes Percent Auto 44.3 % (18.3-44.2); Mean Corpuscular HGB Conc 32.4 g/dl (32-36); Mean Corpuscular Hemoglobin 28.8 pg (26-34); Mean Platelet Volume 9.1 fl (7.4-10.4); Monocytes Absolute Auto 0.1 K/mm3 (0.1-0.6); Monocytes Percent Auto 1.8 % (2.6-8.5); Neutrophils Absolute Auto 2.7 K/mm3 (1.3-6.7); Neutrophils Percent Auto 52.1 % (45.5-73.1); Platelet Count Result 212 k/mm3 (150-375); Red Blood Count 3.64 M/mm3 (4.2-5.4); Red Cell Distribution Width 13.4 % (11.5-14.5); White Blood Count 5.1 K/mm3 (4.5-10.0)
[2020-09-01 14:44] LABS: Alanine Aminotransferase 25 U/L (4-35); Albumin Level 3.7 g/dL (3.5-5.1); Alkaline Phosphatase 54 U/L (38-126); Anion Gap 8 mmol/L (8-16); Aspartate Amino Transferase 23 U/L (14-36); Bilirubin,Total 0.2 mg/dL (0.2-1.3); Blood Urea Nitrogen 16 mg/dL (7-17); Carbon Dioxide 24 mmol/L (22-30); Chloride 98 mmol/L (98-107); Estimated Glomerular Filt Rate 53; Glucose 123 mg/dL (65-110); Potassium 4.3 mmol/L (3.4-5.0); Sodium 130 mmol/L (137-145)
== END 2020-09-01 14:04 | disposition home or self-care (01) ==
LOC: ANHLAB 14:07
PROVIDERS: PCP Internal Medicine; Visit Provider Internal Medicine Medical Oncology
DX: C67.9 Malignant neoplasm of bladder, unspecified (principal)
CPT/HCPCS: 36415; 80053; 85025

== ENCOUNTER 2020-10-21 15:09 | Outpatient (CLI) | payer MEDICARE, SELFPAY ==
--- NOTE | ~2020-10-21 | CT_ITS ---
EXAMINATION: CT abdomen pelvis w con DATE: 10/21/2020 15:53 INDICATION: Malignant neoplasm of the bladder. TECHNIQUE: Computed tomography (CT) of the abdomen and pelvis was performed with 100 cc Omnipaque 350 intravenous contrast. The dose-length product was 410.02 mGy-cm. Automated exposure control and iter ative reconstruction technique were employed. COMPARISON: CT dated 05/27/2020. FINDINGS: There is dependent atelectasis. No significant change to left lower lobe nodules, largest m easuring up to 6 mm, image 21. Heart size is normal. No significant vascular abnormality. No lymphadenopathy. There is levoscoliosis. Moderate lumbar spon dylosis. No lytic or blastic lesions. There is grade 1 degenerative spondylolisthesis at L4-5. Nonobstructive bowel gas pattern. Colonic diverticulosis without evidence for diverticulitis. Gallbla dder is present. Small fat-containing umbilical hernia. The mass previously identified in the bladder is not seen on the current examination. No abdominal lymphadenopathy. Nonobstructive bowel gas patte rn. No free air or free fluid. IMPRESSION: 1. No significant change to left lower lobe nodules measuring 6 mm or less, likely benign. Follow-up CT recommended in 6 months. 2: No evidence for residual bladder mass on the current examination. Reviewed, dictated and finalized at location A. IMPRESSION: 1. No significant change to left lower lobe nodules measuring 6 mm or less, lik madonna benign. Follow-up CT recommended in 6 months. 2: No evidence for residual bladder mass on the current examination.
[2020-10-21 15:47] LABS: Estimated Glomerular Filt Rate 53
== END 2020-10-21 15:10 | disposition home or self-care (01) ==
PROVIDERS: PCP Internal Medicine; Visit Provider Internal Medicine Medical Oncology
DX: C67.9 Malignant neoplasm of bladder, unspecified (principal)
CPT/HCPCS: 74177; Q9967

== ENCOUNTER 2020-10-23 14:56 | Outpatient (CLI) | payer MEDICARE, SELFPAY ==
[2020-10-23 16:14] LABS: Alanine Aminotransferase 37 U/L (4-35); Albumin Level 3.9 g/dL (3.5-5.1); Alkaline Phosphatase 53 U/L (38-126); Anion Gap 5 mmol/L (8-16); Aspartate Amino Transferase 45 U/L (14-36); Bilirubin,Total 0.2 mg/dL (0.2-1.3); Blood Urea Nitrogen 12 mg/dL (7-17); Calcium 9.1 mg/dL (8.4-10.2); Carbon Dioxide 22 mmol/L (22-30); Chloride 98 mmol/L (98-107); Estimated Glomerular Filt Rate 53; Glucose 103 mg/dL (65-110); Potassium 4.4 mmol/L (3.4-5.0); Sodium 125 mmol/L (137-145)
[2020-10-23 16:23] LABS: Creatinine Urine 79.6 mg/dL
[2020-10-23 16:28] LABS: Microalbumin Urine Random 6.4 mg/L (0-16.7)
[2020-10-23 17:54] LABS: Hemoglobin A1C 5.8 % (<5.7)
== END 2020-10-23 14:57 | disposition home or self-care (01) ==
LOC: ANHLAB 15:00
PROVIDERS: PCP Internal Medicine; Visit Provider Internal Medicine
DX: D64.9 Anemia, unspecified (principal); E87.1 Hypo-osmolality and hyponatremia; R73.01 Impaired fasting glucose
CPT/HCPCS: 36415; 80053; 82043; 83036

== ENCOUNTER 2020-10-30 12:07 | Outpatient (CLI) | payer MEDICARE, SELFPAY ==
[2020-10-30 12:46] LABS: Anion Gap 7 mmol/L (8-16); Blood Urea Nitrogen 12 mg/dL (7-17); Calcium 9.2 mg/dL (8.4-10.2); Carbon Dioxide 24 mmol/L (22-30); Chloride 99 mmol/L (98-107); Estimated Glomerular Filt Rate 53; Glucose 97 mg/dL (65-110); Potassium 5.1 mmol/L (3.4-5.0); Sodium 130 mmol/L (137-145)
== END 2020-10-30 12:08 | disposition home or self-care (01) ==
LOC: ANHLAB 12:08
PROVIDERS: PCP Internal Medicine; Visit Provider Internal Medicine
DX: E87.1 Hypo-osmolality and hyponatremia (principal)
CPT/HCPCS: 36415; 80048

== ENCOUNTER 2020-12-03 09:52 | Emergency (ER) | payer MEDICARE, SELFPAY ==
--- NOTE | ~2020-12-03 | XR_ITS ---
XR chest 2V 12/03/2020 10:23 Indication: Hypotension. Dizziness Procedure: 2 view chest Comparison: 08/06/2020 Findings: Portacatheter tip in the SVC. Heart size normal. No acute focal pneumonia, edema or effusio n. Subtle interstitial changes of the lung bases, likely chronic. No acute osseous abnormality. Impression: 1: No acute cardiopulmonary disease. Reviewed, dictated and finalized at location B. Impression: 1: No acute cardiopulmonary disease.
--- NOTE | ~2020-12-03 | CT_ITS ---
EXAMINATION: CTA chest PE protocol DATE: 12/03/2020 13:34 INDICATION: Postoperative lightheadedness. Elevated d-dimer. TECHNIQUE: Computed tomography (CT) pulmonary angiogram of the chest was performed with 100 mL Omnipa que-350 intravenous contrast. Additional 3D reconstructions utilizing coronal maximum intensity proje ction (MIP) were performed. Automated exposure control and iterative reconstruction technique were em ployed. The dose-length product was 239.56 mGy-cm. COMPARISON: 07/02/2020 FINDINGS: Excellent contrast opacification of the pulmonary arteries. There is mild streak artifact from dense contrast in the superior vena cava and right atrium. Mild scattered respiratory motion artifact which does not significantly limit evaluation. No pulmonary embolism. Mild emphysema and unchanged mild sc attered bronchiectasis. Unchanged band of discoid atelectasis/scarring in the posterior left upper lo be and lingula along the major fissure. Additional mild dependent atelectasis/scarring in the bilater al lower lobes. No pneumonia, pulmonary edema, pleural effusion or pneumothorax. There are few scatte red less than central millimeter pulmonary nodules along with a few tiny likely mucus impacted bronch i in the right middle lobe. Heart size is normal. Minimal pericardial effusion. Thoracic aorta is nor mal in caliber with no dissection. No pathologically enlarged thoracic lymphadenopathy. Visualized up per abdomen is unremarkable. Thoracic dextroscoliosis with mild spondylosis. Moderate lower cervical spondylosis. IMPRESSION: 1. No pulmonary embolism or other acute cardiopulmonary disease. 2. Mild emphysema and mild bronchiectasis. Reviewed, dictated and finalized at location A.
[2020-12-03 09:58] VITALS: BP 111/50; PULSE 92; RESP 16; TEMP 36.8; O2SAT 98
--- NOTE | 2020-12-03 10:07 | ECG_ITS ---
Measurements Intervals [place] Rate: 92 P: 93 MO: 178 QRS: 6 QRSD: 83 T: 52 QT: 349 QTc: 433 Interpretive Statements SINUS RHYTHM LOW QRS VOLTAGE IN PRECORDIAL LEADS BORDERLINE ECG Electronically Signed On 12-03-2020 11:00:18 CDT by Pb Alves D.O.
--- NOTE | 2020-12-03 10:43 | ED.DIZZY ---
HPI - Dizziness General Chief Complaint: Dizziness Stated Complaint: LOW BP Source: patient and RN notes reviewed Mode of arrival: EMS Limitations: no limitations History of Present Illness HPI Narrative: This is a 80 year old female with history of hypertension and bladder CA s/p cystectomy, hysterectomy who presents from home for evaluation of possible low blood pressure and dizziness. Patient states she was at home and she developed lightheadedness. She sat down and her lightheadedness resolved. She reports using automated BP cuff at home and it read BP at 80/ 60. She states they called 911 and she ate breakfast. On EMS arrival, patient's BP was normal. They walked patient around house and she denies dizziness. She reports her doctor order outpatient labs and EKG. She was afraid she would become lightheaded again so came to ER to get her labs down. She has been having issues with intermittent low blood pressure since her surgery. Her Bystolic was held 1 week ago and her lisinopril was decreased from 20 mg to 10 mg 1 week ago. She states she was told by PCP to stop her lisinopril completely yesterday. She denies chest pain , abdominal pain, nausea, vomiting or shortness of breath. Related Data Home Medications Medication Instructions Recorded Confirmed aspirin 81 mg tablet,delayed 81 mg PO HS 04/24/19 11/26/20 release cholecalciferol (vitamin D3) 10 400 unit PO DAILY 04/24/19 11/26/20 mcg (400 unit) capsule loratadine 10 mg tablet 10 mg PO DAILY PRN 04/24/19 11/26/20 magnesium oxide 400 mg PO DAILY 04/24/19 11/26/20 raloxifene 60 mg tablet 60 mg PO DAILY 04/24/19 11/26/20 iyazebexlxc-kkdtpriku-flh C-Mn 1 cap PO DAILY 08/14/19 11/26/20 capsule Adult Probiotic 3,000 mmu cells PO DAILY 06/05/20 11/26/20 Premarin 1 applic VAGINAL DIRECTED 06/05/20 11/26/20 omega-3 fatty acids-vitamin E 1 cap PO DAILY 06/05/20 11/26/20 ondansetron HCl [Zofran] 4 mg PO Q6H PRN 08/01/20 11/26/20 Allergies Allergy/AdvReac Type Severity Reaction Status Date / Time No Known Allergies Allergy Verified 10/12/21 09:57 Review of Systems Review of Systems: All systems reviewed & are unremarkable except as noted in HPI and below PMFSH Past Medical History Medical History Actinic keratosis Anxiety Bladder cancer Essential hypertension Lesion of bladder Microscopic hematuria Recurrent UTI Seasonal allergies Skin cancer screening Skin Lesion Stye external UTI (urinary tract infection) Vaccine counseling Surgical History Surgical History History of appendectomy History of knee surgery Social History Social History (Updated 11/25/20 @ 10:04 by Temi Harris) Smoking status: Never smoker Second hand tobacco smoke exposure: No Alcohol intake: current Alcohol use details: STATES MAYBE 2-3 DRINKS A YEAR Substance use: never Substance use type: does not use Additional living arrangements comments: Spiritual care concerns: No Exam Const: General: no acute distress and alert Orientation/consciousness: patient oriented x3 Eyes: EOM: EOMs intact bilaterally Resp: Effort & Inspection: normal respiratory effort and no retractions Auscultation: clear to auscultation bilaterally Cardio: Rate: regular rate Rhythm: regular rhythm Heart sounds: no murmurs GI: GI Palp: Yes Soft to palpation, No Tenderness to palpation present (GI) and No Guarding due to palpation present (GI) Auscultation: normal bowel sounds Other: urostomy in place in lower abdomen Urinary Catheter: Urinary Catheter: urine clear Skin: General skin exam: normal color Rashes: no rashes Neuro: General: patient oriented x3, moves all extremities and CN's II-XI intact bilaterally Psych: Mental Status: mental status grossly normal Affect: normal affect Course Consultations Consultation #1: I spoke
[2020-12-03 10:48] VITALS: BP 116/47; BP 116/48; PULSE 102; PULSE 93
[2020-12-03 10:50] VITALS: BP 104/54; PULSE 108
[2020-12-03 10:56] LABS: Basophils Absolute Auto 0.1 K/mm3 (0.0-0.1); Basophils Percent Auto 0.6 % (0.2-1.2); Eosinophils Absolute Auto 0.1 K/mm3 (0-0.3); Eosinophils Percent Auto 1.3 % (0-4.4); Hemoglobin 9.2 g/dL (12.0-15.0); Immature Granulocyte Absolute 0.07 K/mm3 (0.00-0.031); Immature Granulocyte Percent A 0.7 % (0-0.5); Lymphocytes Absolute Auto 1.26 K/mm3 (0.9-3.2); Mean Corpuscular HGB Conc 31.7 g/dl (32-36); Mean Corpuscular Hemoglobin 30.2 pg (26-34); Mean Corpuscular Volume 95.1 fl (80-100); Mean Platelet Volume 9.1 fl (7.4-10.4); Monocytes Absolute Auto 1.1 K/mm3 (0.1-0.6); Monocytes Percent Auto 10.3 % (2.6-8.5); Neutrophils Absolute Auto 7.9 K/mm3 (1.3-6.7); Neutrophils Percent Auto 75.1 % (45.5-73.1); Platelet Count Result 573 k/mm3 (150-375); Red Blood Count 3.05 M/mm3 (4.2-5.4); Red Cell Distribution Width 15.4 % (11.5-14.5); White Blood Count 10.5 K/mm3 (4.5-10.0)
--- NOTE | 2020-12-03 10:56 | PC.NURSE ---
Pt was brought in from home d/t lightheadedness and patient stated her bp is low, pt presented with urostomy bag
[2020-12-03 10:59] LABS: INR 1.1; Prothrombin Time 13.9 Seconds (11.1-14.7)
[2020-12-03 11:00] LABS: Partial Thromboplastin Time 26.5 SECONDS (22.3-36.8)
[2020-12-03 11:02] LABS: Alanine Aminotransferase 21 U/L (4-35); Albumin Level 3.8 g/dL (3.5-5.1); Alkaline Phosphatase 55 U/L (38-126); Anion Gap 10 mmol/L (8-16); Aspartate Amino Transferase 23 U/L (14-36); Bilirubin,Total 0.1 mg/dL (0.2-1.3); Blood Urea Nitrogen 16 mg/dL (7-17); Calcium 9.5 mg/dL (8.4-10.2); Carbon Dioxide 23 mmol/L (22-30); Chloride 102 mmol/L (98-107); Estimated CRCL calculation 38 ml/min; Estimated Glomerular Filt Rate 53; Glucose 114 mg/dL (65-110); Magnesium 2.3 mg/dL (1.6-2.3); Potassium 3.9 mmol/L (3.4-5.0); Sodium 135 mmol/L (137-145)
[2020-12-03 11:12] LABS: Troponin I < 0.012 ng/mL (0.000-0.034)
[2020-12-03] MEDS: SODIUM CHLORIDE 0.9% IV 1,000 ML 999 ML IV CONT ×2 (11:28→12:30)
[2020-12-03 11:43] LABS: Lactic Acid Reflex 1.9 mmol/L (0.7-2.1)
[2020-12-03 12:12] VITALS: BP 113/50
[2020-12-03 12:25] LABS: D Dimer 2.94 ug/mL (<0.48)
--- NOTE | 2020-12-03 13:35 | PC.NURSE ---
pt gone to CT
[2020-12-03 15:06] VITALS: BP 124/52; PULSE 87; RESP 16; O2SAT 97
== END 2020-12-03 15:07 | disposition home or self-care (01) ==
PROVIDERS: Emergency Provider General Practice; PCP Internal Medicine
DX: D64.9 Anemia, unspecified (principal); R42 Dizziness and giddiness; J43.9 Emphysema, unspecified; F41.9 Anxiety disorder, unspecified; I10 Essential (primary) hypertension; Z87.440 Personal history of urinary (tract) infections
CPT/HCPCS: 36415; 71046; 71275; 80053; 83605; 83735; 84484; 85025; 85380; 85610; 85730; 93005; 96360; 96361; 99284; J7030; Q9967

== ENCOUNTER 2021-02-04 09:35 | Outpatient (RCR) | payer MEDICARE, SELFPAY ==
[2021-02-04 10:18] VITALS: BMI 21.4
== END 2021-04-20 08:39 | disposition home or self-care (01) ==
LOC: ANHWOC 09:35
PROVIDERS: PCP Internal Medicine; Visit Provider Urology
DX: C67.4 Malignant neoplasm of posterior wall of bladder (principal)
CPT/HCPCS: 99212; G0463

== ENCOUNTER 2021-03-02 14:39 | Outpatient (CLI) | payer MEDICARE, SELFPAY ==
--- NOTE | ~2021-03-02 | CT_ITS ---
EXAMINATION: CT abdomen pelvis wo con DATE: 03/02/2021 15:16 INDICATION: Malignant neoplasm of urinary bladder. TECHNIQUE: Computed tomography (CT) of the abdomen and pelvis was performed without intravenous contr ast. Automated exposure control and iterative reconstruction technique were employed. The dose-length product was 221.30 mGy-cm. COMPARISON: CT abdomen and pelvis 10/21/20 FINDINGS: The visualized portions of the lung bases demonstrate mild atelectasis. There is mild emphy sema. No pleural effusion. The heart size is normal. There is a small pericardial effusion. The liver , gallbladder, spleen, pancreas, adrenal glands, and right kidney are normal. There is mild left hydr onephrosis and hydroureter. There is an ileal conduit. There is diverticulosis of the colon without e vidence of diverticulitis. There are changes of appendectomy. There are no pathologically enlarged ly mph nodes. There is no free intraperitoneal fluid. There is a periumbilical hernia containing fat. Th ere is moderate lumbar spondylosis. IMPRESSION: 1. No evidence of metastatic disease. 2. Mild left hydronephrosis and hydroureter, new from 10/21/2020. Ileal conduit. Reviewed, dictated and finalized at location A. 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
== END 2021-03-02 14:40 | disposition home or self-care (01) ==
LOC: ANHIMG 14:44
PROVIDERS: PCP Internal Medicine; Visit Provider Internal Medicine Medical Oncology
DX: C67.9 Malignant neoplasm of bladder, unspecified (principal)
CPT/HCPCS: 74176

== ENCOUNTER 2021-04-02 01:36 | Day surgery (SDC) | payer MEDICARE, SELFPAY ==
--- NOTE | 2021-03-23 15:28 | PC.NURSE ---
Report to the Outpatient Waiting Room, entrance under the green pavilion located off [facility], at time _1230 on date __04/02/21 . OR Time: __1430 . - You will be asked a series of questions to screen for COVID 19 for your protection. - A mask is required within the hospital. - No visitors are allowed at this time. Preoperative COVID Testing Requirements: No COVID Test needed if: (proof is required; if not received patient will have Rapid Test prior to entry) - Patient has received COVID Vaccine at least 14 days prior to procedure date or - Patient has positive COVID test result within last 90 days of surgery date. COVID Test needed if above criteria is not met If not COVID vaccinated a COVID test must be conducted within 72 hours of surgery and patient is asked to isolate self from time of testing until procedure. You will go to the [facility] for your COVID testing. The [facility] is located at the corner of [address] from [facility]. You will only be called if COVID results are positive and your surgeon may reschedule your elective surgery date. Patients may have clear liquids (water, carbonated beverages, clear teas, apple juice) until 3 hours prior to surgery with a maximum of 20 ounces. - No food from midnight until time of surgery - Infants may have breast milk until 4 hours before surgery, infant formula 6 hours prior to surgery. - Children will be allowed to drink immediately following surgery. If applicable, please bring a bottle or sippy cup to assist with drinking. Juice, water, soda, and popsicles are readily available. For infants on formula, please bring formula the day of surgery. Pacifiers are allowed. Take the following medications with a SIP of water the morning of surgery: ___NONE Medications to discontinue per physician ASPIRIN PER DR NOGUEIRA. ALL VITAMINS AND SUPPLEMENTS 3 DAYS PRE OP Date to take last dose 03/29/21 Please no make-up, nail guamanian, hairspray, perfume, deodorant, or body powder the day of surgery. No jewelry (including any body piercings) or valuables the day of surgery, leave them at home. Please take a shower or bath the night before, or the morning of, surgery with an antibacterial soap. Wear comfortable, loose fitting clothing. Children are encouraged to wear pajamas. - Jewelry must be removed prior to entering the operating room. Rings and piercings that are not removed may be cut off. - The hospital will not accept responsibility for valuables. - Please leave all valuables, including medications, at home the day of surgery. If you are going home after surgery, a licensed class b truck driver must drive you home. - NO public transportation without another adult. - We recommend that an adult stay with you for 24 hours following discharge. - We also recommend that you do not drive, make important decision, drink alcoholic beverages, or take any drugs that were not prescribed by your health care provider for at least 24 hours after your discharge time. For Pediatric surgeries, we recommend two adults accompany the child home (only one inside the building at this time). Follow any additional instructions given to you from your surgeon. Telephone instructions given to __PATIENT and asked if any additional questions and then verbalized understanding. Patient advised to call surgeon office or pre surgery nurse liaison [phone] if any additional questions.
[2021-03-23 15:33] VITALS: BMI 21.7
[2021-04-02 11:43] VITALS: BP 143/64; PULSE 82; RESP 20; TEMP 36.4; O2SAT 100
--- NOTE | 2021-04-02 12:46 | WPDANESEPPF ---
Anes - Initial Pre Proc Eval Procedure: Operation Date: 04/02/21 13:00 Proposed Procedures p Removal Raul Cath - Nereida Ellis MD Date/Time: 04/02/21 12:46 Surgeon: Nereida Ellis MD Pre Op Diagnosis: malignant neoplasm of urinary bladder Patient Data Age: 80 Gender: F Height: 1.68 m Weight: 60.45 kg Last Vital Signs Temp 36.4 C L 04/02/21 11:43 Pulse 82 04/02/21 11:43 Resp 20 04/02/21 11:43 BP 143/64 H 04/02/21 11:43 Pulse Ox 100 04/02/21 11:43 Allergies Allergy/AdvReac Type Severity Reaction Status Date / Time No Known Allergies Allergy Verified 04/02/21 11:45 Home Medications Medication Instructions Recorded Confirmed Type aspirin 81 mg tablet,delayed 81 mg PO HS 04/24/19 04/02/21 History release cholecalciferol (vitamin D3) 10 400 unit PO DAILY 04/24/19 04/02/21 History mcg (400 unit) capsule loratadine 10 mg tablet 10 mg PO PRN PRN 04/24/19 03/23/21 History magnesium oxide 400 mg PO DAILY 04/24/19 04/02/21 History raloxifene 60 mg tablet 60 mg PO DAILY 04/24/19 04/02/21 History cyuyeyidvej-gbjjoxvnt-tdv C-Mn 1 cap PO DAILY 08/14/19 04/02/21 History capsule Adult Probiotic 3,000 mmu cells PO DAILY 06/05/20 04/02/21 History ondansetron HCl 4 mg tablet 4 mg PO Q6H PRN #30 tablet 12/04/20 03/23/21 Rx alprazolam [Xanax] 0.25 mg PO PRN PRN 03/23/21 03/23/21 History calcium carbonate [Calcium 600] 600 mg PO DAILY 03/23/21 04/02/21 History docusate sodium [Colace] 50 mg PO DAILY 03/23/21 04/02/21 History folic acid 1 mg PO QPM 03/23/21 04/02/21 History omega-3 fatty acids [Fish Oil] 1,000 mg PO DAILY 03/23/21 04/02/21 History omeprazole 40 mg PO PRN PRN 03/23/21 03/23/21 History vitamin B complex [B Complex] 1 cap PO DAILY 03/23/21 04/02/21 History Patient hx anesthesia problems: none Family hx anesthesia problems: none Results Review: All pre-operative results and documents have been reviewed as part of the pre-operative evaluation. [facility] Past Medical History Medical History Actinic keratosis Anxiety Bladder cancer Essential hypertension Lesion of bladder Microscopic hematuria Recurrent UTI Seasonal allergies Skin cancer screening Skin Lesion Stye external UTI (urinary tract infection) Vaccine counseling Surgical History Surgical History History of appendectomy History of knee surgery Social History Social History (Updated 12/04/20 @ 13:20 by Temi Soto) Smoking status: Never smoker Second hand tobacco smoke exposure: No Alcohol intake: current Alcohol use details: STATES MAYBE 2-3 DRINKS A YEAR Substance use: never Substance use type: does not use Living arrangements: with family Additional living arrangements comments: Spiritual care concerns: No Anes - Eval Final PreProcedure Day of Procedure 04/02/21 12:46 Patient weight: normal Heart: regular rate and rhythm Lungs: clear to auscultation and normal air movement Airway: Mallampati scale class II Neurological: alert and oriented Last oral intake: >/= 8 hours ASA classification: III Emergent: no Anesthetic plan: proceed Anesthesia type and monitoring: general GIVS Results Review: All pre-operative results and documents have been reviewed as part of the pre-operative evaluation. Informed Consent: The patient's anesthetic plan and its attendant risks and benefits were discussed with the patient/family/POA. Questions were solicited and answers provided to the satisfaction of the patient/family/POA.
[2021-04-02] MEDS: LACTATED RINGERS 1,000 ML 30 ML IV CONT (13:15)
--- NOTE | 2021-04-02 14:15 | SUR.PREOP ---
1210-PT AND AWARE SURGEON DELAYS SELF 1-1 1/2 HOURS. 1305-DISCUSSED WITH PT AND , SURGERY WILL BE DELAYED ADDITIONAL 1+ HOUR FROM NOW, OPTION GIVEN TO RESCHEDULE FOR ANOTHER DAY, PREFERS TO HAVE PROCEDURE TODAY.
--- NOTE | 2021-04-02 14:24 | PM.IMHP ---
H&P: HPI History of Present Illness Date/Time: 04/02/21 14:24 Pt is a 80 y/o F s/p chemotherapy for bladder cancer. Pt had RIJ VAD placed by Dr. Hardy in 08/04. Pt reports no issues c VAD and has completed chemotherapy. Pt reports occasion pain at site especially c certain movts. Pt denies any s/s infection. Chief Complaint: bladder cancer Review of Systems Review of Systems: All systems reviewed & are unremarkable except as noted in HPI and below PMFSH Past Medical History Medical History Actinic keratosis Anxiety Bladder cancer Essential hypertension Lesion of bladder Microscopic hematuria Recurrent UTI Seasonal allergies Skin cancer screening Skin Lesion Stye external UTI (urinary tract infection) Vaccine counseling Surgical History Surgical History History of appendectomy History of knee surgery Social History Social History Smoking status: Never smoker Second hand tobacco smoke exposure: No Alcohol intake: current Alcohol use details: STATES MAYBE 2-3 DRINKS A YEAR Substance use: never Substance use type: does not use Living arrangements: with family Additional living arrangements comments: Spiritual care concerns: No Meds Home Medications and Allergies Home Medications Medication Instructions Recorded Confirmed Type aspirin 81 mg tablet,delayed 81 mg PO HS 04/24/19 04/02/21 History release cholecalciferol (vitamin D3) 10 400 unit PO DAILY 04/24/19 04/02/21 History mcg (400 unit) capsule loratadine 10 mg tablet 10 mg PO PRN PRN 04/24/19 03/23/21 History magnesium oxide 400 mg PO DAILY 04/24/19 04/02/21 History raloxifene 60 mg tablet 60 mg PO DAILY 04/24/19 04/02/21 History hhxcbbqhuho-kavdhakko-vob C-Mn 1 cap PO DAILY 08/14/19 04/02/21 History capsule Adult Probiotic 3,000 mmu cells PO DAILY 06/05/20 04/02/21 History ondansetron HCl 4 mg tablet 4 mg PO Q6H PRN #30 tablet 12/04/20 03/23/21 Rx alprazolam [Xanax] 0.25 mg PO PRN PRN 03/23/21 03/23/21 History calcium carbonate [Calcium 600] 600 mg PO DAILY 03/23/21 04/02/21 History docusate sodium [Colace] 50 mg PO DAILY 03/23/21 04/02/21 History folic acid 1 mg PO QPM 03/23/21 04/02/21 History omega-3 fatty acids [Fish Oil] 1,000 mg PO DAILY 03/23/21 04/02/21 History omeprazole 40 mg PO PRN PRN 03/23/21 03/23/21 History vitamin B complex [B Complex] 1 cap PO DAILY 03/23/21 04/02/21 History Allergies Allergy/AdvReac Type Severity Reaction Status Date / Time No Known Allergies Allergy Verified 04/02/21 11:45 Vital Signs Vital Signs - 24 hr 04/02/21 11:43 Temperature 36.4 C L Pulse Rate 82 Respiratory Rate 20 Blood Pressure 143/64 H Pulse Oximetry 100 Exam Const: General: cooperative, comfortable and no acute distress Orientation/consciousness: patient oriented x3 Chest: Chest palpation & inspection: normal inspection of the chest Other: RIJ VAD - C/D/I Resp: Effort & Inspection: normal respiratory effort Auscultation: clear to auscultation bilaterally Cardio: Rate: regular rate Rhythm: regular rhythm GI: Inspection: normal to inspection GI Palp: No abdominal tenderness, Yes Soft to palpation and No Tenderness to palpation present (GI) Assessment and Plan Assessment and plan (1) Primary bladder malignant neoplasm: Onset Date: ~05/2020 Code(s): C67.9 - Malignant neoplasm of bladder, unspecified Status: Acute Assessment and Plan: s/p chemotherapy, will remove VAD in OR
--- NOTE | 2021-04-02 14:28 | WPDHPUPDATE1 ---
History and Physical Update Update Date/Time: 04/02/21 14:28 History and Physical has been reviewed, including an updated exam of the patient. There are NO changes in the patient's condition. Risks, benefits, and alternatives have been discussed and questions answered. Patient agrees to proceed with procedure.
[2021-04-02] MEDS: BUPIVACAINE/EPINEPHRINE 0.5% 10 ML VIAL 30 ML INFILTRATE (14:55)
--- NOTE | 2021-04-02 14:55 | P.OP_ITS ---
Procedure Note - Detailed Date of Procedure 04/02/21 Pre-op Diagnosis malignant neoplasm of urinary bladder Post-op Diagnosis same Procedure Performed removal RIJ VAD Surgeon Nereida Ellis MD Anesthesia MAC and local Indications 80 y/o F s/p chemotherapy for bladder cancer now need VAD removal Findings RIJ VAD Description of Procedure The patient was taken to the operating room and placed in the supine position. The patient was then prepped and draped in the normal sterile fashion. A time- out was then done to verify the patient's identity, as well as the procedure being performed. I began by localizing the area of the previously placed port in the right chest. After the area was adequately anesthetized, I made an incision through the previous incision to gain access to the port in the subcutaneous tissue. I was then able to identify the port and using dissection with the Bovie cautery, I was able to free the reservoir from the subcutaneous pocket. The reservoir was being held in by 2 sutures and these were subsequently cut. I was then able to remove the reservoir from the pocket. I then removed the catheter from the right internal jugular vein in full. I then held pressure at the level the right internal jugular vein for approximately 5 minutes. Hemostasis was noted and I irrigated the pocket. I then closed the subcutaneous tissue with 3-0 Vicryl suture. The skin was closed with 4-0 Monocryl subcuticular suture. Dermabond was placed on the wound. The patient tolerated the procedure well and was alert and awake in the operating room postoperative. The patient will be sent to the recovery room in stable condition. Estimated Blood Loss 5 Drains No Packing No Pathology none sent Complications No immediate complications Condition stable Disposition PACU
[2021-04-02 15:09] VITALS: BP 128/55; PULSE 79; RESP 16; O2SAT 100
[2021-04-02 15:35] VITALS: BP 151/70; PULSE 80; RESP 16; O2SAT 98
== END 2021-04-02 16:07 | disposition home or self-care (01) ==
PROVIDERS: PCP Internal Medicine; Visit Provider Surgery
PROC: (CPT 36589; principal; 2021-04-02 13:00)
DX: Z45.2 Encounter for adjustment and management of vascular access device (principal); C67.9 Malignant neoplasm of bladder, unspecified; L57.0 Actinic keratosis; F41.9 Anxiety disorder, unspecified; I10 Essential (primary) hypertension; R31.29 Other microscopic hematuria; Z79.82 Long term (current) use of aspirin
CPT/HCPCS: 36590; J2405; J2704; J7120

== ENCOUNTER 2021-05-18 07:09 | Outpatient (CLI) | payer MEDICARE, SELFPAY ==
[2021-05-18 07:45] LABS: Alanine Aminotransferase 19 U/L (4-35); Alkaline Phosphatase 46 U/L (38-126); Anion Gap 5 mmol/L (8-16); Aspartate Amino Transferase 37 U/L (14-36); Basophils Absolute Auto 0.1 K/mm3 (0.0-0.1); Basophils Percent Auto 0.9 % (0.2-1.2); Bilirubin,Total 0.3 mg/dL (0.2-1.3); Blood Urea Nitrogen 18 mg/dL (7-17); Calcium 9.2 mg/dL (8.4-10.2); Carbon Dioxide 27 mmol/L (22-30); Chloride 106 mmol/L (98-107); Cholesterol 185 mg/dL (0-200); Eosinophils Absolute Auto 0.2 K/mm3 (0-0.3); Eosinophils Percent Auto 3.1 % (0-4.4); Estimated Glomerular Filt Rate 53; Glucose 95 mg/dL (65-110); HDL Direct 72 mg/dL; Hematocrit 37.5 % (37.0-47.0); Hemoglobin 11.9 g/dL (12.0-15.0); Immature Granulocyte Absolute 0.01 K/mm3 (0.00-0.031); Immature Granulocyte Percent A 0.2 % (0-0.5); Lymphocytes Absolute Auto 2.24 K/mm3 (0.9-3.2); Lymphocytes Percent Auto 41.5 % (18.3-44.2); Mean Corpuscular HGB Conc 31.7 g/dl (32-36); Mean Corpuscular Hemoglobin 28.6 pg (26-34); Mean Corpuscular Volume 90.1 fl (80-100); Mean Platelet Volume 9.9 fl (7.4-10.4); Monocytes Absolute Auto 0.6 K/mm3 (0.1-0.6); Monocytes Percent Auto 11.5 % (2.6-8.5); Neutrophils Absolute Auto 2.3 K/mm3 (1.3-6.7); Neutrophils Percent Auto 42.8 % (45.5-73.1); Platelet Count Result 252 k/mm3 (150-375); Potassium 4.5 mmol/L (3.4-5.0); Red Blood Count 4.16 M/mm3 (4.2-5.4); Red Cell Distribution Width 15.1 % (11.5-14.5); Sodium 138 mmol/L (137-145); Triglycerides 101 mg/dL (<150); White Blood Count 5.4 K/mm3 (4.5-10.0)
[2021-05-18 07:55] LABS: LDL Cholesterol Direct 78 mg/dL
[2021-05-18 08:04] LABS: Hemoglobin A1C 5.4 % (<5.7)
[2021-05-18 09:27] LABS: Vitamin D 25 Hydroxy 72.5 ng/mL
[2021-05-18 09:38] LABS: Creatinine Urine 33.7 mg/dL
[2021-05-18 09:42] LABS: MALB Creatinine Ratio 23.7 mg/g (0-30)
== END 2021-05-18 07:10 | disposition home or self-care (01) ==
PROVIDERS: PCP Internal Medicine; Visit Provider Internal Medicine
DX: D64.9 Anemia, unspecified (principal); E55.9 Vitamin D deficiency, unspecified; I10 Essential (primary) hypertension; R73.01 Impaired fasting glucose; E78.2 Mixed hyperlipidemia
CPT/HCPCS: 36415; 80053; 80061; 82043; 82306; 83036; 84443; 85025

== ENCOUNTER 2021-06-01 10:39 | Outpatient (CLI) | payer MEDICARE, SELFPAY ==
--- NOTE | ~2021-06-01 | CT_ITS ---
EXAMINATION: CT abdomen pelvis w con DATE: 06/01/2021 11:13 INDICATION: Malignant neoplasm of urinary bladder. TECHNIQUE: Computed tomography (CT) of the abdomen and pelvis was performed with 100 mL Omnipaque 350 intravenous contrast. Automated exposure control and iterative reconstruction technique were employe d. The dose-length product was 347.71 mGy-cm. COMPARISON: CT abdomen and pelvis 03/02/2021 FINDINGS: The visualized portions of the lung bases demonstrate mild emphysema and mild atelectasis. There is mild bronchiectasis bilaterally. No pleural effusion. The heart size is normal. No pericardi al effusion. The liver, gallbladder, spleen, pancreas, and adrenal glands are normal. There are cysts in the kidneys measuring up to 1.3 cm on the left. There is mild bilateral hydronephrosis and hydrou reter. An ileal conduit is noted. There are changes of cholecystectomy. There is diverticulosis of th e colon without evidence of diverticulitis. There are no dilated loops of bowel. There are changes of appendectomy. There are no pathologically enlarged lymph nodes. There is no free intraperitoneal flu id. There is mild thoracolumbar spondylosis. IMPRESSION: 1. No evidence of metastatic disease. 2. Ileal conduit with mild bilateral hydronephrosis and hydroureter. Reviewed, dictated and finalized at location B.
== END 2021-06-01 10:40 | disposition home or self-care (01) ==
PROVIDERS: PCP Internal Medicine; Visit Provider Internal Medicine Medical Oncology
DX: C67.9 Malignant neoplasm of bladder, unspecified (principal); J43.9 Emphysema, unspecified; K57.30 Diverticulosis of large intestine without perforation or abscess without bleeding; M47.815 Spondylosis without myelopathy or radiculopathy, thoracolumbar region; N13.30 Unspecified hydronephrosis; N28.1 Cyst of kidney, acquired; N13.4 Hydroureter; J47.9 Bronchiectasis, uncomplicated
CPT/HCPCS: 74177; Q9967

== ENCOUNTER 2021-09-21 08:27 | Outpatient (CLI) | payer MEDICARE, SELFPAY ==
--- NOTE | ~2021-09-21 | CT_ITS ---
EXAMINATION: CT abdomen pelvis w con DATE: 09/21/2021 09:01 INDICATION: Restaging of malignant neoplasm of urinary bladder TECHNIQUE: Computed tomography (CT) of the abdomen and pelvis was performed with 100 cc Omnipaque 350 intravenous contrast. Automated exposure control and iterative reconstruction technique were employe d. Exam dose: 281.79 mGy-cm total exam DLP. COMPARISON: 06/01/2021 CT abdomen pelvis FINDINGS: There is minimal atelectasis at the dependent lower lobes primarily. Heart size is upper limits of normal. No pericardial or pleural effusion. No hepatic, splenic, pancreatic, and adrenal space-occupying mass lesion. The gallbladder is present. No bile duct or pancreatic duct dilatation. 6 mm and 8 mm right renal cysts. There is an indeterminate hypoenhancing mass of the medial mid left kidney, measuring up to approxima tely 10.6 x 14 mm compared to 9 x 11.9 mm on 05/27/2020. Renal malignancy is not excluded. Consider MR renal examination There are several up to 7 mm left renal cysts. There is asymmetric thickening and enhancement of the wall of the left renal infundibula, pelvis and ureter, which may indicate infection. Status post cystectomy and ileal conduit, with mild hydronephrosis of each kidney. Normal caliber of the abdominal aorta. No intraperitoneal or retroperitoneal or pelvic mass lesion or adenopathy or ascites is noted otherwise. Status post appendectomy. Diverticulosis of the colon. No CT evidence of diverticulitis. There is a p rominent amount of fecal material in the colon but no bowel obstruction or intraperitoneal free air. Levoscoliosis and degenerative change of the lumbar spine including degenerative change at the apophy seal joints with grade 1 anterolisthesis at L4-5. IMPRESSION: Mild interval increase size of indeterminate left renal hypoattenuating mass since 2020; consider renal MRI. Status post cystectomy and ileal conduit; mild hydronephrosis of the kidneys Thickening and enhancement of the lining of the infundibula, renal pelvis and ureter on the left, whi ch may indicate infection Status post appendectomy Diverticulosis of the colon Reviewed, dictated and finalized at Location [facility]. Reviewed, dictated and finalized at location B. IMPRESSION: Mild interval increase size of indeterminate left renal hypoattenu ating mass since 05/27/2020; consider renal MRI. Status post cystectomy and ileal conduit; mild hydronephrosis of the kidneys Thickening and enhancement of the lining of the infundibula, renal pelvis and u reter on the left, which may indicate infection Status post appendectomy Diverticulosis of the colon
[2021-09-21 08:56] LABS: Estimated Glomerular Filt Rate 43
[2021-09-21 14:18] LABS: Alanine Aminotransferase 19 U/L (6-35); Albumin Level 3.8 g/dL (3.5-5.1); Alkaline Phosphatase 54 U/L (38-126); Anion Gap 9 mmol/L (8-16); Aspartate Amino Transferase 30 U/L (14-36); Bilirubin,Total 0.2 mg/dL (0.2-1.3); Blood Urea Nitrogen 18 mg/dL (7-17); Calcium 8.3 mg/dL (8.4-10.2); Carbon Dioxide 23 mmol/L (22-30); Chloride 96 mmol/L (98-107); Estimated Glomerular Filt Rate 53; Glucose 128 mg/dL (65-110); Sodium 128 mmol/L (137-145)
== END 2021-09-21 08:28 | disposition home or self-care (01) ==
PROVIDERS: PCP Internal Medicine; Visit Provider Internal Medicine Medical Oncology
DX: C67.9 Malignant neoplasm of bladder, unspecified (principal); N28.89 Other specified disorders of kidney and ureter; Z98.890 Other specified postprocedural states; K57.90 Diverticulosis of intestine, part unspecified, without perforation or abscess without bleeding
CPT/HCPCS: 74177; 80053; Q9967

== ENCOUNTER 2021-10-06 08:28 | Outpatient (CLI) | payer MEDICARE, SELFPAY ==
--- NOTE | ~2021-10-06 | MR_ITS ---
EXAMINATION: MR abdomen wo/w con DATE: 10/06/2021 09:57 INDICATION: Renal mass TECHNIQUE: Magnetic resonance imaging (MRI) of the abdomen was performed without and with 12 mL Multi fransisco intravenous contrast. Sequences included coronal T2-weighted SS-FSE, coronal and axial FS 2D-F IESTA, axial STIR FSE, axial T2-weighted SS-FSE, axial T2-weighted FS SS-FSE, axial diffusion-weighte d SE, axial dual-echo T1-weighted FSPGR, and axial and coronal T1-weighted LAVA. Postcontrast axial T 1-weighted LAVA images were obtained in a time course. Postcontrast coronal T1-weighted LAVA images w ere obtained. COMPARISON: CT abdomen and pelvis dated 09/21/2021 FINDINGS: Heart size is normal. No pericardial or pleural effusion. 6 mm T2 hyperintense lesion in segment 8 of the liver which demonstrates delayed enhancement statistically most likely to represent a hemangioma but too small to definitively characterize. Spleen, pancreas and bilateral adrenal glands are normal . There are bilateral nonenhancing renal cysts which includes both smaller T2 hyperintense simple cys ts as well as a couple T1 hyperintense and slightly less T2 hyperintense complex proteinaceous/hemorr hagic cysts at the mid to upper left kidney the larger measuring 1.4 cm. No significant change in mil d bilateral hydronephrosis and hydroureter which extend towards an ileal conduit and associated ostom y in the right lower quadrant. Anterior wall of the transverse colon along with some fat extends into the orifice of a small shallow supraumbilical ventral hernia. Visualized bowels are otherwise unrema rkable with no obstruction. No pathologically enlarged abdominal lymphadenopathy. There is an additi onal subtle very small shallow fat-containing infraumbilical ventral hernia. 14 degrees lumbar levosc oliosis with mild to moderate spondylosis. IMPRESSION: 1. Bilateral nonenhancing renal cysts including a couple T1 hyperintense complex proteinaceous/hemorr hagic cysts at the left kidney, the larger measuring 1.3 cm in corresponding to the lesion of concern on prior CT. 2. Chronic mild bilateral hydroureteronephrosis extending to a right lower quadrant ileal conduit. Reviewed, dictated and finalized at location A. IMPRESSION: 1. Bilateral nonenhancing renal cysts including a couple T1 hyperintense comple x proteinaceous/hemorrhagic cysts at the left kidney, the larger measuring 1.3 cm in corresponding to the lesion of concern on prior CT. 2. Chronic mild bilateral hydroureteronephrosis extending to a right lower quad rant ileal conduit.
== END 2021-10-06 08:29 | disposition home or self-care (01) ==
PROVIDERS: PCP Internal Medicine; Visit Provider Internal Medicine Medical Oncology
DX: N28.89 Other specified disorders of kidney and ureter (principal); N28.1 Cyst of kidney, acquired
CPT/HCPCS: 74183; A9577

== ENCOUNTER 2021-10-14 02:21 | Emergency (ER) | payer MEDICARE, SELFPAY ==
[2021-10-14 02:24] VITALS: BP 128/49; PULSE 77; RESP 20; TEMP 36.6; O2SAT 99
[2021-10-14 04:05] LABS: Basophils Percent Auto 0.1 % (0.2-1.2); Eosinophils Absolute Auto 0.2 K/mm3 (0-0.3); Immature Granulocyte Absolute 0.04 K/mm3 (0.00-0.031); Immature Granulocyte Percent A 0.6 % (0-0.5); Lymphocytes Absolute Auto 0.88 K/mm3 (0.9-3.2); Lymphocytes Percent Auto 12.7 % (18.3-44.2); Mean Corpuscular HGB Conc 33.3 g/dl (32-36); Mean Corpuscular Hemoglobin 29.4 pg (26-34); Mean Corpuscular Volume 88.2 fl (80-100); Mean Platelet Volume 9.5 fl (7.4-10.4); Monocytes Absolute Auto 0.9 K/mm3 (0.1-0.6); Monocytes Percent Auto 13.2 % (2.6-8.5); Neutrophils Absolute Auto 4.9 K/mm3 (1.3-6.7); Neutrophils Percent Auto 70.4 % (45.5-73.1); Platelet Count Result 213 k/mm3 (150-375); Red Blood Count 4.08 M/mm3 (4.2-5.4); Red Cell Distribution Width 14.2 % (11.5-14.5)
[2021-10-14 05:24] LABS: Alanine Aminotransferase 18 U/L (6-35); Albumin Level 3.7 g/dL (3.5-5.1); Alkaline Phosphatase 43 U/L (38-126); Anion Gap 10 mmol/L (8-16); Aspartate Amino Transferase 27 U/L (14-36); Bilirubin,Total 0.3 mg/dL (0.2-1.3); Blood Urea Nitrogen 13 mg/dL (7-17); Calcium 8.7 mg/dL (8.4-10.2); Carbon Dioxide 24 mmol/L (22-30); Chloride 94 mmol/L (98-107); Estimated CRCL calculation 46 ml/min; Estimated Glomerular Filt Rate > 60; Glucose 109 mg/dL (65-110); Potassium 3.8 mmol/L (3.4-5.0); Sodium 128 mmol/L (137-145)
[2021-10-14] MEDS: BELLADONNA ALK/PHENOB ELIX 10 ML, MAG HYDROX/ALUMINUM HYD/SIMETH 30 ML, LIDOCAINE HCL 2... PO (05:39)
[2021-10-14] MEDS: LORazepam INJ (*CRX) 2 MG/ML VIAL 0.5 MG IV PUSH (05:43)
[2021-10-14 05:46] VITALS: BP 133/62; PULSE 70; RESP 20; O2SAT 100
--- NOTE | 2021-10-14 05:53 | ED.GENADULT ---
HPI - General Adult General Chief complaint: Allergic Reaction Stated complaint: anxiety Time Seen by Provider: 10/14/21 03:02 History of Present Illness HPI narrative: Patient is a 81-year-old female who presents the emergency department with chief complaint of anxiety. Patient reports that recently she has been having issues with anxiety since she had a CT scan and MRI. The patient reports that her primary doctor started her on an anxiety medication and today she started feeling very anxious and very jittery. The patient states that she had a feeling of reflux in her epigastric region patient denies chest pain states that she has history of hyponatremia and was concerned that her sodium may be lower than where it has been. Patient states that her last sodium check was on 21 September. Patient denies vomiting denies diarrhea. Patient denies fever. Related Data Home Medications Medication Instructions Recorded Confirmed aspirin 81 mg tablet,delayed 81 mg PO HS 04/24/19 05/21/21 release (Adult Low Dose Aspirin) cholecalciferol (vitamin D3) 10 400 unit PO DAILY 04/24/19 05/21/21 mcg (400 unit) capsule (Vitamin D3) loratadine 10 mg tablet 10 mg PO PRN PRN Congestion 04/24/19 05/21/21 magnesium oxide 400 mg PO DAILY 04/24/19 05/21/21 raloxifene 60 mg tablet 60 mg PO DAILY 04/24/19 05/21/21 [id number]-itbaadcgd-gdy C-Mn 1 cap PO DAILY 08/14/19 05/21/21 capsule lactobacillus combination no.8 3 3,000 mmu cells PO DAILY 06/05/20 05/21/21 billion cell capsule (Adult Probiotic) calcium carbonate 600 mg calcium 600 mg PO DAILY 03/23/21 05/21/21 (1,500 mg) tablet (Calcium) docusate sodium 50 mg capsule 50 mg PO DAILY 03/23/21 05/21/21 folic acid 1 mg tablet 1 mg PO QPM 03/23/21 05/21/21 omega-3 fatty acids 1,000 mg PO DAILY 03/23/21 05/21/21 vitamin B complex 1 cap PO DAILY 03/23/21 05/21/21 Allergies Allergy/AdvReac Type Severity Reaction Status Date / Time buspirone AdvReac Dizziness Verified 10/14/21 02:31 duloxetine AdvReac Hives Verified 10/14/21 02:31 Review of Systems Review of Systems: A 10 system review of systems was completed on the patient and is negative except for what is stated in the HPI. Nursing and ancillary documentation was reviewed. [facility] Past Medical History Medical History Actinic keratosis Anxiety Bladder cancer Essential hypertension Lesion of bladder Microscopic hematuria Recurrent UTI Seasonal allergies Skin cancer screening Skin Lesion Stye external UTI (urinary tract infection) Vaccine counseling Surgical History Surgical History History of appendectomy History of knee surgery Social History Social History Second hand tobacco smoke exposure: No Alcohol intake: current Alcohol use details: STATES MAYBE 2-3 DRINKS A YEAR Substance use: never Substance use type: does not use Additional living arrangements comments: Spiritual care concerns: No Exam Narrative: GENERAL: Well-appearing, well-nourished, and in no acute distress. HEAD: Normocephalic, atraumatic. EYES: PERRLA and EOMI. ENT: Nares clear, no rhinorrhea or epistaxis. Mucous membranes moist. NECK: Supple. CHEST: Clear to auscultation. No respiratory distress. HEART: Regular rate and rhythm. No murmur heard. Normal peripheral pulses. ABDOMEN: Soft, nontender, nondistended, normal active bowel sounds. EXTREMITIES: Normal range of motion. No edema. SKIN: Warm, dry, no rash. NEURO: No focal deficits. Alert and oriented x3. PSYCH: Normal mood and affect. Course Vital Signs Vital signs: Vital Signs Temperature 36.6 C 10/14/21 02:24 Pulse Rate 77 10/14/21 02:24 Respiratory Rate 20 10/14/21 02:24 Blood Pressure 128/49 L 10/14/21 02:24 Pulse Oximetry 99 10/14/21 02:24 Oxygen Delivery
[2021-10-14 06:37] VITALS: BP 90/54; PULSE 73; RESP 22; O2SAT 100
== END 2021-10-14 06:38 | disposition home or self-care (01) ==
PROVIDERS: Emergency Provider Emergency Medicine; PCP Internal Medicine
DX: F41.9 Anxiety disorder, unspecified (principal); E87.1 Hypo-osmolality and hyponatremia; I10 Essential (primary) hypertension; Z85.51 Personal history of malignant neoplasm of bladder; Z87.440 Personal history of urinary (tract) infections
CPT/HCPCS: 36415; 80053; 85025; 96374; 99284; A9270; J2060

== ENCOUNTER 2021-11-09 09:25 | Outpatient (CLI) | payer MEDICARE, SELFPAY ==
--- NOTE | ~2021-11-09 | XR_ITS ---
EXAMINATION: XR UGI w barium swallow DATE: 11/09/2021 10:15 INDICATION: Gastroesophageal reflux disease without esophagitis TECHNIQUE: The patient drank thick barium, gas-producing crystals, and thin barium. Conventional supi ne abdomen radiographs and fluoroscopy of the esophagus, stomach, and proximal small bowel were perfo rmed. Fluoroscopy exposure time was 1.5 minutes. The DAP for this procedure was 8.077 Gycm2. COMPARISON: None. FINDINGS: There is no mass or stricture of the esophagus. There is prominent contraction of the crico pharyngeus muscle. Esophageal motility is normal. There is a small sliding hiatal hernia. There was a moderate to large volume of spontaneous gastroesophageal reflux. The stomach and proximal small paulette l show normal folding patterns. IMPRESSION: 1. Small sliding hiatal hernia with moderate to large volume of spontaneous gastroesophageal reflux. Reviewed, dictated and finalized at location A. IMPRESSION: 1. Small sliding hiatal hernia with moderate to large volume of spontaneous gas troesophageal reflux.
--- NOTE | 2021-11-13 12:38 | WPDHOLTEREM ---
Holter/Event Monitor Holter/Event Monitor Date of procedure: 11/09/21 Holter/Event Procedure: 48 Hr Holter Monitor Indications: Dizziness Conclusion: 1. 48 hour holter monitor on 11/09/21. 2. Predominant rhythm is sinus rhythm. HR range 51-126 bpm; average HR 72 bpm. 3. There are 324 premature supraventricular complexes and 16 supraventricular couplets. There are 9 episodes of atrial tachycardia, fastest at 160 bpm and longest lasting 8 beats. 4. There are 24 premature ventricular complexes. No ventricular tachycardia. 5. No sinoatrial or atrioventricular complexes. No ventricular tachycardia. 6. Patient reports symptoms of faster heart beats which demonstrate sinus rhythm, HR range 88-104 bpm with a PAC.
== END 2021-11-09 09:26 | disposition home or self-care (01) ==
PROVIDERS: PCP Internal Medicine; Visit Provider Internal Medicine
DX: K21.9 Gastro-esophageal reflux disease without esophagitis (principal); K44.9 Diaphragmatic hernia without obstruction or gangrene
CPT/HCPCS: 74240; 93225; 93226

== ENCOUNTER → 2021-11-16 08:45 | Outpatient (CLI) | payer MEDICARE, SELFPAY ==
--- NOTE | ~2021-11-16 | DEXA_ITS ---
Bone Density Report Name: ACE BARTH Age: 81 Sex: Female Ethnicity: White Date of : 1940 Indication: osteopenia; monitoring treatment; height loss; prior fracture; postmenopausal Referring Provider: Eugenia, Laura Echevarria Study: Bone densitometry was performed. Exam Date: November 16, 2021 Accession number: [id number] Bone Density: Region BMD T-score Z-score Classification AP Spine (L1-L4) 0.942 -1.0 1.7 Normal Femoral Neck (Left) 0.655 -1.7 0.6 Osteopenia Total Hip (Left) 0.818 -1.0 1.1 Normal Femoral Neck (Right) 0.664 -1.7 0.6 Osteopenia Total Hip (Right) 0.759 -1.5 0.6 Osteopenia Total Hip Mean 0.789 -1.3 0.9 Osteopenia World Health Organization criteria for BMD impression classify patients as: Normal (T-score at or above -1.0), Osteopenia (T-score between -1.0 and -2.5), or Osteoporosis (T-score at or below -2.5). 10-year Fracture Risk: FRAX not reported because: Treated for osteoporosis Previous Exams: Region Exam Age BMD T-score BMD Change BMD Change Date g/cm2 vs Baseline vs Previous AP Spine(L1-L4) 11/16/2021 81 0.942 -1.0 -0.019 -0.043* 11/29/2018 78 0.985 -0.6 0.024* 0.009 06/28/2016 76 0.976 -0.6 0.015 -0.023* 03/13/2014 73 1.000 -0.4 0.038* 0.025* 01/29/2013 72 0.974 -0.7 0.013 0.029* 01/28/2011 70 0.945 -0.9 -0.016 0.018 04/05/2008 67 0.928 -1.1 -0.034* -0.023 03/09/2007 66 0.950 -0.9 -0.011 -0.011 06/15/2004 63 0.961 -0.8 Total Hip(Left) 11/16/2021 81 0.818 -1.0 -0.043* 0.047* 11/29/2018 78 0.771 -1.4 -0.091* -0.117* 06/28/2016 76 0.887 -0.5 0.026 0.034* 03/13/2014 73 0.853 -0.7 -0.009 0.087* 01/29/2013 72 0.765 -1.4 -0.096* -0.011 01/28/2011 70 0.776 -1.4 -0.085* 0.008 04/05/2008 67 0.769 -1.4 -0.092* 0.005 03/09/2007 66 0.764 -1.5 -0.097* -0.097* 06/15/2004 63 0.861 -0.7 Total Hip(Right) 11/16/2021 81 0.759 -1.5 -0.052* -0.028* 11/29/2018 78 0.787 -1.3 -0.024 -0.071* 06/28/2016 76 0.858 -0.7 0.046* 0.023 03/13/2014 73 0.835 -0.9 0.023 0.097* 01/29/2013 72 0.738 -1.7 -0.073* -0.051* 01/28/2011 70 0.789 -1.3 -0.022 0.046* 04/05/2008 67 0.743 -1.6 -0.069* 0.002 03/09/2007 66 0.741 -1.7 -0.071*
== END ==
PROVIDERS: PCP Internal Medicine; Visit Provider Nurse Practitioner Obstetrics & Gynecology
DX: Z78.0 Asymptomatic menopausal state (principal); M85.852 Other specified disorders of bone density and structure, left thigh; M85.851 Other specified disorders of bone density and structure, right thigh
CPT/HCPCS: 77080

== ENCOUNTER 2021-12-21 08:41 | Outpatient (CLI) | payer MEDICARE, SELFPAY ==
--- NOTE | ~2021-12-21 | CT_ITS ---
EXAMINATION: CT abdomen pelvis w con DATE: 12/21/2021 09:10 INDICATION: Malignant neoplasm of the urinary bladder TECHNIQUE: Computed tomography (CT) of the abdomen and pelvis was performed with 100 mL Omnipaque-350 intravenous contrast. Automated exposure control and iterative reconstruction technique were employe d. The dose-length product was 312.69 mGy-cm. COMPARISON: CT dated 09/21/2021 and 05/27/2020 and MRI dated 10/06/2021 FINDINGS: Mild emphysema, mild bronchiectasis and mild atelectasis at the bilateral lung bases. Heart size is n ormal. No pericardial or pleural effusion. 8 mm hypoenhancing lesion in segment 8 of the liver gallbl adder, spleen, pancreas and bilateral adrenal glands are normal. Postoperative change of prior cystec terry and right abdominal ileal conduit formation. There is a small amount of herniated fat extending along the ostomy. There is mild right and moderate left hydroureteronephrosis. There is urothelial en hancement along the bilateral ureters and renal collecting systems which could be seen with ascending urinary tract infection. Bilateral renal cysts the largest on the right measuring 1.8 cm. Small paulette l anastomotic suture line in the right lower quadrant likely the harvest site for the ileal conduit. Suture line at the tip the cecum likely related to prior appendectomy. Mild diverticulosis along the descending and sigmoid colon without adjacent inflammatory change to suggest diverticulitis. Unchange d small linear calcification in the atrophic uterus. No free intraperitoneal gas or fluid. No patholo gically enlarged abdominal or pelvic lymphadenopathy. Mild lumbar levoscoliosis with moderate spondyl osis. IMPRESSION: 1. Indeterminate hypoenhancing 8 mm lesion in segment 8 of the liver which appears as does a subtly e nhancing lesion on prior CT dated 05/27/2020 which favors a benign etiology most likely a hemangioma. No other lesions suspicious for metastatic disease. 2. Status post cystectomy and ileal conduit formation with mild right and moderate left hydroureteron ephrosis with urothelial enhancement which could be seen with ascending urinary tract infection. Reviewed, dictated and finalized at location A. RAFT TECHNICIAN IMPRESSION: 1. Indeterminate hypoenhancing 8 mm lesion in segment 8 of the liver which appe ars as does a subtly enhancing lesion on prior CT dated 05/27/2020 which favors a benign etiology most likely a hemangioma. No other lesions suspicious for met astatic disease. 2. Status post cystectomy and ileal conduit formation with mild right and moder ate left hydroureteronephrosis with urothelial enhancement which could be seen with ascending urinary tract infection.
[2021-12-21 09:03] LABS: Estimated Glomerular Filt Rate 48
[2021-12-21 09:56] LABS: Basophils Absolute Auto 0.1 K/mm3 (0.0-0.1); Basophils Percent Auto 0.9 % (0.2-1.2); Eosinophils Absolute Auto 0.3 K/mm3 (0-0.3); Eosinophils Percent Auto 3.3 % (0-4.4); Hematocrit 35.4 % (37.0-47.0); Hemoglobin 11.2 g/dL (12.0-15.0); Immature Granulocyte Absolute 0.05 K/mm3 (0.00-0.031); Immature Granulocyte Percent A 0.7 % (0-0.5); Lymphocytes Absolute Auto 2.09 K/mm3 (0.9-3.2); Lymphocytes Percent Auto 27.5 % (18.3-44.2); Mean Corpuscular HGB Conc 31.6 g/dl (32-36); Mean Corpuscular Hemoglobin 28.7 pg (26-34); Mean Corpuscular Volume 90.8 fl (80-100); Mean Platelet Volume 8.8 fl (7.4-10.4); Monocytes Absolute Auto 0.8 K/mm3 (0.1-0.6); Monocytes Percent Auto 10.2 % (2.6-8.5); Neutrophils Absolute Auto 4.4 K/mm3 (1.3-6.7); Neutrophils Percent Auto 57.4 % (45.5-73.1); Platelet Count Result 452 k/mm3 (150-375); White Blood Count 7.6 K/mm3 (4.5-10.0)
[2021-12-21 10:09] LABS: Alanine Aminotransferase 19 U/L (6-35); Alkaline Phosphatase 59 U/L (38-126); Anion Gap 12 mmol/L (8-16); Aspartate Amino Transferase 23 U/L (14-36); Bilirubin,Total 0.3 mg/dL (0.2-1.3); Blood Urea Nitrogen 17 mg/dL (7-17); Calcium 8.7 mg/dL (8.4-10.2); Carbon Dioxide 21 mmol/L (22-30); Chloride 103 mmol/L (98-107); Estimated Glomerular Filt Rate 48; Glucose 91 mg/dL (65-110); Lactate Dehydrogenase 123 U/L (120-246); Potassium 4.1 mmol/L (3.4-5.0); Sodium 136 mmol/L (137-145)
[2021-12-21 12:39] LABS: Erythrocyte Sedimentation Rate 73 mm/hr (0-20)
== END 2021-12-21 08:42 | disposition home or self-care (01) ==
PROVIDERS: PCP Internal Medicine; Visit Provider Internal Medicine Medical Oncology
DX: C67.9 Malignant neoplasm of bladder, unspecified (principal); D64.9 Anemia, unspecified
CPT/HCPCS: 74177; 80053; 83615; 85025; 85652; Q9967

== ENCOUNTER → 2021-12-22 11:30 | Outpatient (CLI) | payer MEDICARE, SELFPAY ==
--- NOTE | ~2021-12-22 | MM_ITS ---
EXAMINATION: MM screening reed BI w ramses HISTORY: Screening mammogram TECHNIQUE: Craniocaudal and mediolateral oblique 3-D tomosynthesis images were obtained and synthetic 2-D images were generated. CAD analysis was submitted and interpreted. COMPARISON: 06/16/2020, 11/29/2018, 11/03/2015 bilateral screening mammogram examinations BREAST PARENCHYMAL COMPOSITION: The breasts are heterogeneously dense, which may obscure small masses . FINDINGS: There are scattered benign calcifications in both breasts. There is no evidence of suspicio us mass, calcification, or architectural distortion to suggest malignancy in either breast. There has been no suspicious interval change. IMPRESSION: 1. No mammographic evidence of malignancy. 2. Recommend routine screening mammography in one year. BI-RADS Category 2: Benign finding(s). Reviewed, dictated and finalized at location A. RNET E COMMERCE SPECIALIST
== END ==
PROVIDERS: PCP Internal Medicine; Visit Provider Nurse Practitioner Obstetrics & Gynecology
DX: Z12.31 Encounter for screening mammogram for malignant neoplasm of breast (principal)
CPT/HCPCS: 77063; 77067

== ENCOUNTER 2022-01-26 12:36 | Outpatient (CLI) | payer MEDICARE, SELFPAY ==
--- NOTE | ~2022-01-26 | NM_ITS ---
EXAMINATION: EILEEN leon renal scan DATE: 01/26/2022 13:48 INDICATION: Left hydronephrosis. TECHNIQUE: 7.9 mCi Tc-99m MAG3 was administered IV. 40 mg furosemide was administered IV immediately afterward. The patient was scanned in the upright/supine position. A posterior abdominal radionuclid e angiogram was obtained. A subsequent time course of static images of the kidneys, ureters, and blad elizabeth was obtained. COMPARISON: CT abdomen and pelvis 12/21/2021, 09/21/2021, 10/21/20 FINDINGS: The posterior abdominal radionuclide angiogram and sequential static images show normal siz e, position, and morphology of the kidneys. Peak renal parenchymal uptake was 2 min in right kidney a nd 8 min in left kidney (normal peak 3-5 minutes). The relative early renal uptake was 62% on the ri ght and 38% on the left (<40% is abnormal). T1/2 for clearance of activity from the right kidney and proximal collecting system was 15 minutes. T1/2 for clearance of activity from the left kidney and proximal collecting system was 20 minutes. IMPRESSION: 1. Relatively decreased left kidney function, which is 38% of total renal function. 2. Delayed contrast clearance from left kidney, which is an expected finding given the decreased lef t kidney function. The decreased kidney function prevents evaluation for fixed ureteral obstruction. 3. Delayed contrast clearance from right kidney, which may be secondary to decreased kidney function and/or fixed ureteral obstruction. Reviewed, dictated and finalized at location A. ENT TRANSPORTER IMPRESSION: 1. Relatively decreased left kidney function, which is 38% of total renal func tion. 2. Delayed contrast clearance from left kidney, which is an expected finding g iven the decreased left kidney function. The decreased kidney function prevents evaluation for fixed ureteral obstruction. 3. Delayed contrast clearance from right kidney, which may be secondary to decr eased kidney function and/or fixed ureteral obstruction.
== END 2022-01-26 12:37 | disposition home or self-care (01) ==
PROVIDERS: PCP Nurse Practitioner; Visit Provider Urology
DX: N13.30 Unspecified hydronephrosis (principal); R94.4 Abnormal results of kidney function studies
CPT/HCPCS: 78708; A9562; J1940

== ENCOUNTER 2022-02-16 10:37 | Outpatient (CLI) | payer MEDICARE, SELFPAY ==
[2022-02-16 12:16] LABS: Anion Gap 7 mmol/L (8-16); Blood Urea Nitrogen 18 mg/dL (7-17); Calcium 9.1 mg/dL (8.4-10.2); Carbon Dioxide 26 mmol/L (22-30); Chloride 105 mmol/L (98-107); Estimated Glomerular Filt Rate 48; Glucose 121 mg/dL (65-110); Potassium 3.9 mmol/L (3.4-5.0); Sodium 138 mmol/L (137-145)
== END 2022-02-16 10:38 | disposition home or self-care (01) ==
PROVIDERS: PCP Nurse Practitioner; Visit Provider Urology
DX: N13.30 Unspecified hydronephrosis (principal)
CPT/HCPCS: 36415; 80048

== ENCOUNTER 2022-04-16 08:26 | Outpatient (CLI) | payer MEDICARE, SELFPAY ==
--- NOTE | ~2022-04-16 | CT_ITS ---
EXAMINATION: CT abdomen pelvis w con DATE: 04/16/2022 08:57 INDICATION: Malignant neoplasm of bladder. TECHNIQUE: Computed tomography (CT) of the abdomen and pelvis was performed with 100 mL Omnipaque 350 intravenous contrast. Automated exposure control and iterative reconstruction technique were employe d. The dose-length product was 253.29 mGy-cm. COMPARISON: CT abdomen and pelvis 12/21/2021 FINDINGS: The visualized portions of the lung bases demonstrate mild atelectasis and mild emphysema. No pleural effusion. The heart size is normal. No pericardial effusion. The previously described subc entimeter liver lesion is not visualized. The liver, gallbladder, spleen, pancreas, and adrenal gland s are normal. There are cysts in the kidneys measuring up to 16 mm on the left. There is cortical thi nning of left kidney. There is mild right hydronephrosis and hydroureter. There is moderate left hydr onephrosis and hydroureter with urothelial thickening. There is an ileal conduit. The bladder is abse nt. There is diverticulosis of the colon without evidence of diverticulitis. There are no dilated loo ps of bowel. There are changes of appendectomy. There are no pathologically enlarged lymph nodes. The re is no free intraperitoneal fluid. There is lumbar levoscoliosis and mild spondylosis. IMPRESSION: 1. No evidence of metastatic disease. 2. Stable mild right hydronephrosis and hydroureter. 3. Stable moderate left hydronephrosis and hydroureter with chronic urothelial thickening suggesting repeated or chronic infection. Reviewed, dictated and finalized at location A. TH PROFESSIONAL
[2022-04-16 08:53] LABS: Estimated Glomerular Filt Rate 39
[2022-04-16 09:38] LABS: Basophils Absolute Auto 0.1 K/mm3 (0.0-0.1); Basophils Percent Auto 1.1 % (0.2-1.2); Eosinophils Absolute Auto 0.1 K/mm3 (0-0.3); Eosinophils Percent Auto 1.7 % (0-4.4); Hematocrit 34.3 % (37.0-47.0); Hemoglobin 10.8 g/dL (12.0-15.0); Immature Granulocyte Absolute 0.02 K/mm3 (0.00-0.031); Immature Granulocyte Percent A 0.3 % (0-0.5); Lymphocytes Absolute Auto 1.83 K/mm3 (0.9-3.2); Lymphocytes Percent Auto 25.6 % (18.3-44.2); Mean Corpuscular HGB Conc 31.5 g/dl (32-36); Mean Corpuscular Hemoglobin 27.8 pg (26-34); Mean Corpuscular Volume 88.4 fl (80-100); Mean Platelet Volume 9.3 fl (7.4-10.4); Monocytes Absolute Auto 0.8 K/mm3 (0.1-0.6); Monocytes Percent Auto 11.6 % (2.6-8.5); Neutrophils Absolute Auto 4.3 K/mm3 (1.3-6.7); Neutrophils Percent Auto 59.7 % (45.5-73.1); Platelet Count Result 359 k/mm3 (150-375); Red Blood Count 3.88 M/mm3 (4.2-5.4); White Blood Count 7.1 K/mm3 (4.5-10.0)
[2022-04-16 10:02] LABS: Alanine Aminotransferase 15 U/L (6-35); Albumin Level 3.7 g/dL (3.5-5.1); Alkaline Phosphatase 47 U/L (38-126); Anion Gap 5 mmol/L (8-16); Aspartate Amino Transferase 20 U/L (14-36); Bilirubin,Total 0.4 mg/dL (0.2-1.3); Blood Urea Nitrogen 20 mg/dL (7-17); Calcium 8.9 mg/dL (8.4-10.2); Carbon Dioxide 26 mmol/L (22-30); Chloride 102 mmol/L (98-107); Estimated Glomerular Filt Rate 48; Glucose 92 mg/dL (65-110); Potassium 4.5 mmol/L (3.4-5.0); Sodium 133 mmol/L (137-145)
== END 2022-04-16 08:27 | disposition home or self-care (01) ==
PROVIDERS: PCP Nurse Practitioner; Visit Provider Internal Medicine Medical Oncology
DX: C67.9 Malignant neoplasm of bladder, unspecified (principal); N13.30 Unspecified hydronephrosis
CPT/HCPCS: 74177; 80053; 85025; Q9967

== ENCOUNTER 2022-05-20 08:42 | Outpatient (CLI) | payer MEDICARE, SELFPAY ==
[2022-05-20 09:26] LABS: Alanine Aminotransferase 15 U/L (6-35); Alkaline Phosphatase 54 U/L (38-126); Anion Gap 5 mmol/L (8-16); Aspartate Amino Transferase 20 U/L (14-36); Bilirubin,Total 0.4 mg/dL (0.2-1.3); Blood Urea Nitrogen 19 mg/dL (7-17); Calcium 9.2 mg/dL (8.4-10.2); Carbon Dioxide 29 mmol/L (22-30); Chloride 102 mmol/L (98-107); Cholesterol 179 mg/dL (0-200); Estimated Glomerular Filt Rate 48; Glucose 100 mg/dL (65-110); HDL Direct 50 mg/dL; Potassium 3.8 mmol/L (3.4-5.0); Sodium 136 mmol/L (137-145); Triglycerides 157 mg/dL (<150)
[2022-05-20 09:38] LABS: LDL Cholesterol Direct 80 mg/dL
[2022-05-20 09:47] LABS: Vitamin D 25 Hydroxy 58.8 ng/mL
== END 2022-05-20 08:43 | disposition home or self-care (01) ==
PROVIDERS: PCP Nurse Practitioner; Visit Provider Nurse Practitioner
DX: E55.9 Vitamin D deficiency, unspecified (principal); E78.5 Hyperlipidemia, unspecified
CPT/HCPCS: 36415; 80053; 80061; 82306

== ENCOUNTER 2022-09-03 08:00 | Outpatient (CLI) | payer MEDICARE, SELFPAY ==
--- NOTE | ~2022-09-03 | CT_ITS ---
EXAMINATION: CT abdomen pelvis w con DATE: 09/03/2022 08:42 INDICATION: Malignant neoplasm of urinary bladder. TECHNIQUE: Computed tomography (CT) of the abdomen and pelvis was performed with 100 mL Omnipaque 350 intravenous contrast. Automated exposure control and iterative reconstruction technique were employe d. The dose-length product was 291.49 mGy-cm. COMPARISON: CT abdomen and pelvis 04/16/2022 FINDINGS: The visualized portions of the lung bases demonstrate emphysema, mild bronchiectasis, and m ild atelectasis. No pleural effusion. The heart size is normal. No pericardial effusion. The liver de monstrates focal steatosis adjacent to the falciform ligament. The spleen, gallbladder, pancreas, and adrenal glands are normal. There is cortical thinning of left kidney. There are cysts in the kidneys measuring up to 1.5 cm on the left. There is mild right hydronephrosis and hydroureter. There is mod erate left hydronephrosis and hydroureter with chronic urothelial enhancement. There is an ileal cond uit. There is a pessary in the vagina. There is diverticulosis of the colon without evidence of diver ticulitis. There are changes of appendectomy. There is a supraumbilical ventral hernia containing a w all of nonobstructed transverse colon. There are no pathologically enlarged lymph nodes. There is no free intraperitoneal fluid. There is lumbar levoscoliosis and mild spondylosis. IMPRESSION: 1. No evidence of metastatic disease. 2. Stable mild right hydronephrosis and hydroureter. 3. Stable moderate left hydronephrosis and hydroureter with chronic urothelial enhancement suggestin g repeated or chronic infection. Mild left kidney atrophy. Reviewed, dictated and finalized at location A. IMPRESSION: 1. No evidence of metastatic disease. 2. Stable mild right hydronephrosis and hydroureter. 3. Stable moderate left hydronephrosis and hydroureter with chronic urothelial enhancement suggesting repeated or chronic infection. Mild left kidney atrophy .
[2022-09-03 08:35] LABS: Estimated Glomerular Filt Rate 43
[2022-09-03 09:52] LABS: Basophils Absolute Auto 0.1 K/mm3 (0.0-0.1); Basophils Percent Auto 0.9 % (0.2-1.2); Eosinophils Absolute Auto 0.2 K/mm3 (0-0.3); Eosinophils Percent Auto 2.1 % (0-4.4); Hematocrit 42.7 % (37.0-47.0); Hemoglobin 13.4 g/dL (12.0-15.0); Immature Granulocyte Absolute 0.02 K/mm3 (0.00-0.031); Immature Granulocyte Percent A 0.3 % (0-0.5); Lymphocytes Absolute Auto 2.02 K/mm3 (0.9-3.2); Lymphocytes Percent Auto 26.2 % (18.3-44.2); Mean Corpuscular HGB Conc 31.4 g/dl (32-36); Mean Corpuscular Hemoglobin 27.9 pg (26-34); Monocytes Absolute Auto 0.7 K/mm3 (0.1-0.6); Monocytes Percent Auto 8.5 % (2.6-8.5); Neutrophils Absolute Auto 4.8 K/mm3 (1.3-6.7); Platelet Count Result 326 k/mm3 (150-375); Red Cell Distribution Width 14.9 % (11.5-14.5); White Blood Count 7.7 K/mm3 (4.5-10.0)
[2022-09-03 10:04] LABS: Alanine Aminotransferase 22 U/L (6-35); Albumin Level 4.3 g/dL (3.5-5.1); Alkaline Phosphatase 57 U/L (38-126); Anion Gap 11 mmol/L (8-16); Aspartate Amino Transferase 26 U/L (14-36); Bilirubin,Total 0.4 mg/dL (0.2-1.3); Blood Urea Nitrogen 14 mg/dL (7-17); Calcium 9.3 mg/dL (8.4-10.2); Carbon Dioxide 23 mmol/L (22-30); Chloride 102 mmol/L (98-107); Estimated Glomerular Filt Rate 48; Glucose 85 mg/dL (65-110); Sodium 136 mmol/L (137-145)
== END 2022-09-03 08:01 | disposition home or self-care (01) ==
PROVIDERS: PCP Family Medicine; Visit Provider Internal Medicine Medical Oncology
DX: C67.9 Malignant neoplasm of bladder, unspecified (principal); N26.1 Atrophy of kidney (terminal); N13.30 Unspecified hydronephrosis; N13.4 Hydroureter
CPT/HCPCS: 74177; 80053; 85025; Q9967

== ENCOUNTER 2022-12-09 06:57 | Outpatient (CLI) | payer MEDICARE, SELFPAY ==
[2022-12-09 07:53] LABS: Hemoglobin A1C 5.7 % (<5.7)
[2022-12-09 07:58] LABS: Alanine Aminotransferase 22 U/L (6-35); Albumin Level 3.9 g/dL (3.5-5.1); Alkaline Phosphatase 55 U/L (38-126); Anion Gap 8 mmol/L (8-16); Aspartate Amino Transferase 26 U/L (14-36); Bilirubin,Total 0.5 mg/dL (0.2-1.3); Blood Urea Nitrogen 18 mg/dL (7-17); Calcium 9.3 mg/dL (8.4-10.2); Carbon Dioxide 20 mmol/L (22-30); Chloride 108 mmol/L (98-107); Estimated Glomerular Filt Rate 48; Glucose 86 mg/dL (65-110); Potassium 4.1 mmol/L (3.4-5.0); Sodium 136 mmol/L (137-145)
== END 2022-12-09 06:58 | disposition home or self-care (01) ==
PROVIDERS: PCP Family Medicine; Visit Provider Nurse Practitioner
DX: E78.5 Hyperlipidemia, unspecified (principal); R73.01 Impaired fasting glucose; Z79.899 Other long term (current) drug therapy
CPT/HCPCS: 36415; 80053; 83036

== ENCOUNTER 2023-02-25 08:25 | Outpatient (CLI) | payer MEDICARE, SELFPAY ==
--- NOTE | ~2023-02-25 | CT_ITS ---
EXAMINATION: CT abdomen pelvis w con DATE: 02/25/2023 08:57 INDICATION: Malignant neoplasm of urinary bladder TECHNIQUE: Computed tomography (CT) of the abdomen and pelvis was performed with 100 CC Omnipaque 350 intravenous contrast. Automated exposure control and iterative reconstruction technique were employe d. Exam dose: 351.44 mGy-cm total exam DLP. COMPARISON: 09/03/2022 CT abdomen pelvis FINDINGS: There is mild lingular and bilateral lower lobe dependent and basilar atelectasis. Mild cardiomegaly. No pericardial or pleural effusion. The liver, gallbladder, bile ducts, pancreas, pancreatic duct, spleen, and adrenal glands are unremar kable. Occasional right renal cysts measuring up to 7 mm. Stable approximately 10 x 14 mm hypoenhancing lesion of the medial aspect of the mid left kidney sinc e 09/03/2022. There is diffuse left renal atrophy with with mildly irregular scarring. Again noted is an ileal conduit and chronic pelviectasis and hydroureteronephrosis, left greater than right. There is chronic mild left urothelial enhancement which may be due to infection or inflammati on. Normal caliber of the abdominal aorta. No intraperitoneal or retroperitoneal or pelvic mass lesion or adenopathy or ascites. Vaginal pessary. Status post appendectomy. Diverticulosis of the colon; no CT evidence of diverticulitis. Left infraumbilical abdominal wall hernia containing a loop of nonobstructed small bowel. No bowel obstruction or intraperitoneal free air. Small retroverted uterus with a calcification and mild up to 6 mm AP fluid collection in the endometr ial cavity. Prominent degenerative changes apophyseal joints of the lower lumbar and lumbosacral area with associ ated grade 1 anterolisthesis at L4-5. There is degenerative spurring of the lower thoracic and lumbar spine. No suspicious osteolytic or os teoblastic lesions are noted. IMPRESSION: Ileal conduit Stable bilateral pelviectasis and hydroureteronephrosis, left greater than right and chronic mild lef t urothelial enhancement, no significant change since 09/03/2022 No recurrent malignant mass or metastasis is evident Mild basilar atelectasis Mild cardiomegaly Multiple right renal cysts measuring up to 7 mm Stable 10 x 14 mm probable left renal cyst Chronic left renal atrophy, scarring Status post appendectomy Diverticulosis of the colon; no evidence of diverticulitis Small retroverted uterus with mild endometrial fluid collection Reviewed, dictated and finalized at Location A. Reviewed, dictated and finalized at location B. ING MANAGER IMPRESSION: Ileal conduit Stable bilateral pelviectasis and hydroureteronephrosis, left greater than righ t and chronic mild left urothelial enhancement, no significant change since 08/15 No recurrent malignant mass or metastasis is evident Mild basilar atelectasis Mild cardiomegaly Multiple right renal cysts measuring up to 7 mm Stable 10 x 14 mm probable left renal cyst Chronic left renal atrophy, scarring Status post appendectomy Diverticulosis of the colon; no evidence of diverticulitis Small retroverted uterus with mild endometrial fluid collection
[2023-02-25 08:48] LABS: Estimated Glomerular Filt Rate 39
== END 2023-02-25 08:26 | disposition home or self-care (01) ==
PROVIDERS: PCP Nurse Practitioner Family; Visit Provider Internal Medicine Medical Oncology
DX: C67.9 Malignant neoplasm of bladder, unspecified (principal); I51.7 Cardiomegaly; K57.30 Diverticulosis of large intestine without perforation or abscess without bleeding
CPT/HCPCS: 74177; Q9967

== ENCOUNTER 2023-02-28 07:59 | Outpatient (CLI) | payer MEDICARE, SELFPAY ==
[2023-02-28 08:38] LABS: Basophils Absolute Auto 0.1 K/mm3 (0.0-0.1); Basophils Percent Auto 1.1 % (0.2-1.2); Eosinophils Absolute Auto 0.2 K/mm3 (0-0.3); Eosinophils Percent Auto 2.4 % (0-4.4); Hematocrit 39.5 % (37.0-47.0); Hemoglobin 12.5 g/dL (12.0-15.0); Immature Granulocyte Absolute 0.03 K/mm3 (0.00-0.031); Immature Granulocyte Percent A 0.4 % (0-0.5); Lymphocytes Absolute Auto 2.13 K/mm3 (0.9-3.2); Lymphocytes Percent Auto 26.9 % (18.3-44.2); Mean Corpuscular HGB Conc 31.6 g/dl (32-36); Mean Corpuscular Hemoglobin 28.9 pg (26-34); Mean Corpuscular Volume 91.2 fl (80-100); Mean Platelet Volume 9.3 fl (7.4-10.4); Monocytes Absolute Auto 0.7 K/mm3 (0.1-0.6); Monocytes Percent Auto 8.6 % (2.6-8.5); Neutrophils Absolute Auto 4.8 K/mm3 (1.3-6.7); Neutrophils Percent Auto 60.6 % (45.5-73.1); Platelet Count Result 377 k/mm3 (150-375); Red Blood Count 4.33 M/mm3 (4.2-5.4); Red Cell Distribution Width 13.4 % (11.5-14.5); White Blood Count 7.9 K/mm3 (4.5-10.0)
[2023-02-28 08:50] LABS: Alanine Aminotransferase 16 U/L (6-35); Alkaline Phosphatase 63 U/L (38-126); Anion Gap 6 mmol/L (8-16); Aspartate Amino Transferase 21 U/L (14-36); Bilirubin,Total 0.4 mg/dL (0.2-1.3); Blood Urea Nitrogen 18 mg/dL (7-17); Calcium 9.2 mg/dL (8.4-10.2); Carbon Dioxide 26 mmol/L (22-30); Chloride 106 mmol/L (98-107); Estimated Glomerular Filt Rate 39; Glucose 97 mg/dL (65-110); Potassium 4.2 mmol/L (3.4-5.0); Sodium 138 mmol/L (137-145)
== END 2023-02-28 08:00 | disposition home or self-care (01) ==
PROVIDERS: PCP Nurse Practitioner Family; Visit Provider Internal Medicine Medical Oncology
DX: C67.9 Malignant neoplasm of bladder, unspecified (principal)
CPT/HCPCS: 36415; 80053; 85025

== ENCOUNTER 2023-03-31 12:46 | Emergency (ER) | payer MEDICARE, SELFPAY ==
[2023-03-31 13:05] VITALS: BP 112/63; PULSE 97; RESP 18; TEMP 37; O2SAT 99
--- NOTE | 2023-03-31 13:39 | ED.URI ---
HPI - URI/Sore Throat General Chief Complaint: Upper Respiratory Infection Stated Complaint: cough,nausea,lightheaded Time Seen by Provider: 03/31/23 13:20 Source: patient, family, RN notes reviewed and old records reviewed Mode of arrival: ambulatory Limitations: no limitations History of Present Illness HPI Narrative: 82 year old female presents to express care with complaints of cough sinus congestion with no fevers since Tuesday the . Patient reports that she was out in yard working trying to remove some wet leaves in yard and thinks she was exposed to mold. Patient reports that she has seasonal sinus problem and allergies. She stats that she initially was taking Claritin but stopped because she though it was drying cough and not letting her expectorate any mucous. Patient denies any fevers or any shortness of breath. MD elicited complaint: cough and sore throat Pertinent past history: seasonal allergies Onset (ago): day(s) (6-7 days) Severity: moderate Able to tolerate fluids by mouth: Yes Treatments prior to arrival: other (Delsym and Claritin) Related Data Home Medications Medication Instructions Recorded Confirmed aspirin 81 mg tablet,delayed 81 mg PO HS 04/24/19 12/13/22 release (Adult Low Dose Aspirin) cholecalciferol (vitamin D3) 10 400 unit PO DAILY 04/24/19 12/13/22 mcg (400 unit) capsule (Vitamin D3) magnesium oxide 400 mg PO DAILY 04/24/19 12/13/22 raloxifene 60 mg tablet 60 mg PO DAILY 04/24/19 12/13/22 facgzolwsfz-ozgeunmwe-cor C-Mn 1 cap PO DAILY 08/14/19 12/13/22 capsule lactobacillus combination no.8 3 3,000 mmu cells PO DAILY 06/05/20 12/13/22 billion cell capsule (Adult Probiotic) calcium carbonate 600 mg calcium 600 mg PO DAILY 03/23/21 12/13/22 (1,500 mg) tablet (Calcium) folic acid 1 mg tablet 1 mg PO QPM 03/23/21 12/13/22 omega-3 fatty acids 1,000 mg PO DAILY 03/23/21 12/13/22 vitamin B complex 1 cap PO DAILY 03/23/21 12/13/22 pyridoxine (vitamin B6) 200 mg 200 mg PO DAILY 11/26/21 12/13/22 tablet docusate calcium 50 mg capsule mg PO DAILY 06/02/22 12/13/22 loratadine 10 mg tablet 10 mg PO DAILY PRN Congestion 06/02/22 12/13/22 Allergies Allergy/AdvReac Type Severity Reaction Status Date / Time buspirone AdvReac Dizziness Verified 03/18/23 08:25 Review of Systems Review of Systems: CONSTITUTIONAL: Reports malaise,no chills, sweats, or fever. EYES: Denies visual changes, redness, or discharge. ENT: Reports rhinorrhea, congestion, sinus pain,no otalgia and no sore throat. CARDIOVASCULAR: Denies chest pain, palpitations, or edema. RESPIRATORY: Reports cough.? Denies dyspnea. soreness to chest with cough GASTROINTESTINAL: Denies abdominal pain, nausea, vomiting, diarrhea SKIN: Denies rash or itching. MUSCULOSKELETAL: Denies myalgia. NEUROLOGIC: Denies headache. All systems reviewed & are unremarkable except as noted in HPI and below PMFSH Past Medical History Medical History Actinic keratosis Anxiety Bladder cancer Essential hypertension Hammer toe of left foot Lesion of bladder Microscopic hematuria Recurrent UTI Seasonal allergies Skin cancer screening Skin Lesion Stye external UTI (urinary tract infection) Vaccine counseling Surgical History Surgical History History of appendectomy History of knee surgery Social History Social History Smoking status: Never smoker Second hand tobacco smoke exposure: No Alcohol intake: former Alcohol use details: STATES MAYBE 2-3 DRINKS A YEAR Substance use: never Substance use type: does not use Lack of Transportation: No Lack of Food: Never True Current Housing: I Have Housing Concerned About Future Housing: No Difficulty Paying Gas/Electric Bills: No Difficulty Paying for Meds: No 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
== END 2023-03-31 13:59 | disposition home or self-care (01) ==
PROVIDERS: Emergency Provider Registered Nurse; PCP Nurse Practitioner Family
DX: J06.9 Acute upper respiratory infection, unspecified (principal); Z20.822 Contact with and (suspected) exposure to COVID-19; I10 Essential (primary) hypertension; Z85.51 Personal history of malignant neoplasm of bladder; Z79.82 Long term (current) use of aspirin
CPT/HCPCS: 87426; 87804; 99213; G0463

== ENCOUNTER 2023-05-20 08:21 | Outpatient (CLI) | payer MEDICARE, SELFPAY ==
[2023-05-20 09:19] LABS: Basophils Absolute Auto 0.1 K/mm3 (0.0-0.1); Basophils Percent Auto 1.2 % (0.2-1.2); Eosinophils Absolute Auto 0.3 K/mm3 (0-0.3); Eosinophils Percent Auto 3.6 % (0-4.4); Hematocrit 39.4 % (37.0-47.0); Hemoglobin 12.3 g/dL (12.0-15.0); Immature Granulocyte Absolute 0.03 K/mm3 (0.00-0.031); Immature Granulocyte Percent A 0.4 % (0-0.5); Lymphocytes Absolute Auto 2.35 K/mm3 (0.9-3.2); Lymphocytes Percent Auto 31.4 % (18.3-44.2); Mean Corpuscular HGB Conc 31.2 g/dl (32-36); Mean Corpuscular Hemoglobin 28.6 pg (26-34); Mean Corpuscular Volume 91.6 fl (80-100); Mean Platelet Volume 10.2 fl (7.4-10.4); Monocytes Absolute Auto 0.8 K/mm3 (0.1-0.6); Monocytes Percent Auto 10.4 % (2.6-8.5); Platelet Count Result 278 k/mm3 (150-375); Red Cell Distribution Width 15.1 % (11.5-14.5); White Blood Count 7.5 K/mm3 (4.5-10.0)
[2023-05-20 09:33] LABS: Alanine Aminotransferase 17 U/L (6-35); Albumin Level 3.9 g/dL (3.5-5.1); Alkaline Phosphatase 59 U/L (38-126); Anion Gap 5 mmol/L (4-12); Aspartate Amino Transferase 23 U/L (14-36); Bilirubin,Total 0.4 mg/dL (0.2-1.3); Blood Urea Nitrogen 17 mg/dL (7-17); Calcium 9.2 mg/dL (8.4-10.2); Carbon Dioxide 25 mmol/L (22-30); Chloride 108 mmol/L (98-107); Cholesterol 207 mg/dL (0-200); Estimated Glomerular Filt Rate 48; Glucose 92 mg/dL (65-110); HDL Direct 66 mg/dL; Sodium 138 mmol/L (137-145); Triglycerides 208 mg/dL (<150)
[2023-05-20 09:43] LABS: LDL Cholesterol Direct 118 mg/dL
[2023-05-20 09:48] LABS: Vitamin D 25 Hydroxy 59.3 ng/mL
== END 2023-05-20 08:22 | disposition home or self-care (01) ==
PROVIDERS: PCP Nurse Practitioner Family; Visit Provider Nurse Practitioner Family
DX: Z13.0 Encounter for screening for diseases of the blood and blood-forming organs and certain disorders involving the immune mechanism (principal); Z13.228 Encounter for screening for other metabolic disorders; E55.9 Vitamin D deficiency, unspecified; E78.5 Hyperlipidemia, unspecified
CPT/HCPCS: 36415; 80053; 80061; 82306; 85025

== ENCOUNTER 2023-09-05 07:38 | Outpatient (CLI) | payer MEDICARE, SELFPAY ==
--- NOTE | ~2023-09-05 | CT_ITS ---
EXAMINATION: CT abdomen pelvis wo con DATE: 09/05/2023 08:17 INDICATION: Malignant neoplasm of the urinary bladder TECHNIQUE: Computed tomography (CT) of the abdomen and pelvis was performed without intravenous contr ast. Automated exposure control and iterative reconstruction technique were employed. The dose-length product was 283.28 mGy-cm. COMPARISON: 02/25/2023 FINDINGS: Mild atelectasis in the bilateral lower lobes. Heart size is normal. No pericardial or pleural effusi on. Liver, gallbladder, spleen, pancreas and bilateral adrenal glands are normal. Status post cystect kosta with right lower quadrant ileal conduit formation. There is mild right-sided and moderate left-si ded hydroureteronephrosis. No urolithiasis. Mild left renal atrophy. Unchanged small left renal cyst. Small bowel anastomosis in the right pelvis. Suture line along the tip the cecum likely related to p rior appendectomy. Short loop of small bowel extends into a small infraumbilical ventral hernia. No b owel obstruction. There are a few scattered colonic diverticula without adjacent inflammatory strandi ng to suggest diverticulitis. Small dystrophic calcification within the otherwise unremarkable atroph ic retroverted uterus. No free intraperitoneal gas or fluid. No pathologically enlarged abdominal or pelvic lymphadenopathy. IMPRESSION: 1. Postoperative change of prior cystectomy and ileal conduit formation for reported bladder cancer. No evident locally recurrent or metastatic disease. 2. Unchanged moderate left and mild right hydroureteronephrosis likely related to partial obstruction at the level of the ureteral-conduit anastomosis with likely secondary mild left renal atrophy. 3. Loop of nonobstructed small bowel extends into a small infraumbilical ventral hernia. 4. Reviewed, dictated and finalized at location A. IMPRESSION: 1. Postoperative change of prior cystectomy and ileal conduit formation for rep orted bladder cancer. No evident locally recurrent or metastatic disease. 2. Unchanged moderate left and mild right hydroureteronephrosis likely related to partial obstruction at the level of the ureteral-conduit anastomosis with li isabel secondary mild left renal atrophy. 3. Loop of nonobstructed small bowel extends into a small infraumbilical ventra l hernia. 4.
== END 2023-09-05 07:39 | disposition home or self-care (01) ==
PROVIDERS: PCP Nurse Practitioner Family; Visit Provider Internal Medicine Medical Oncology
DX: C67.9 Malignant neoplasm of bladder, unspecified (principal); K43.9 Ventral hernia without obstruction or gangrene; Z98.890 Other specified postprocedural states
CPT/HCPCS: 74176

== ENCOUNTER 2023-11-23 06:41 | Outpatient (CLI) | payer MEDICARE, SELFPAY ==
[2023-11-23 07:57] LABS: Hematocrit 39.3 % (37.0-47.0); Hemoglobin 12.3 g/dL (12.0-15.0); Mean Corpuscular HGB Conc 31.3 g/dl (32-36); Mean Corpuscular Hemoglobin 28.4 pg (26-34); Mean Corpuscular Volume 90.8 fl (80-100); Mean Platelet Volume 10.2 fl (7.4-10.4); Platelet Count Result 269 k/mm3 (150-375); Red Blood Count 4.33 M/mm3 (4.2-5.4); Red Cell Distribution Width 14.3 % (11.5-14.5); White Blood Count 6.5 K/mm3 (4.5-10.0)
[2023-11-23 08:08] LABS: Alanine Aminotransferase 18 U/L (6-35); Alkaline Phosphatase 55 U/L (38-126); Anion Gap 8 mmol/L (4-12); Aspartate Amino Transferase 25 U/L (14-36); Bilirubin,Total 0.4 mg/dL (0.2-1.3); Blood Urea Nitrogen 19 mg/dL (7-17); Calcium 9.1 mg/dL (8.4-10.2); Carbon Dioxide 26 mmol/L (22-30); Chloride 104 mmol/L (98-107); Cholesterol 205 mg/dL (0-200); Estimated Glomerular Filt Rate 39; Glucose 93 mg/dL (65-110); HDL Direct 65 mg/dL; Sodium 138 mmol/L (137-145); Triglycerides 189 mg/dL (<150)
[2023-11-23 08:19] LABS: LDL Cholesterol Direct 98 mg/dL
[2023-11-24 23:09] LABS: Amphetamines NEGATIVE ng/mL (<500); Barbiturates NEGATIVE ng/mL (<300); Benzodiazepines NEGATIVE ng/mL (<100); Cocaine Metabolite NEGATIVE ng/mL (<150); Marijuana Metabolite NEGATIVE ng/mL (<20); Methadone Metabolite NEGATIVE ng/mL (<100); Opiates NEGATIVE ng/mL (<100); Oxidant NEGATIVE mcg/mL (<200); PCP NEGATIVE ng/mL (<25)
== END 2023-11-23 06:42 | disposition home or self-care (01) ==
PROVIDERS: PCP Nurse Practitioner Family; Visit Provider Nurse Practitioner Family
DX: C67.9 Malignant neoplasm of bladder, unspecified (principal); K21.9 Gastro-esophageal reflux disease without esophagitis; F41.9 Anxiety disorder, unspecified; D64.9 Anemia, unspecified; E78.5 Hyperlipidemia, unspecified; M81.0 Age-related osteoporosis without current pathological fracture; E55.9 Vitamin D deficiency, unspecified; Z79.899 Other long term (current) drug therapy
CPT/HCPCS: 36415; 80053; 80061; 80307; 82306; 85027

== ENCOUNTER 2023-11-28 06:36 | Outpatient (CLI) | payer MEDICARE, SELFPAY ==
--- NOTE | ~2023-11-28 | CT_ITS ---
CT of the Abdomen and Pelvis: Indication: Rectovaginal fistula Technique: 2.5 mm axial scans were obtained through the abdomen and pelvis following intravenous adm inistration of 100 cc of Omnipaque 350. Dose reduction technique was used on this scan by utilizing a utomated exposure control and iterative reconstruction technique. The dose-length product (DLP) was 3 31.97 mGy-cm. COMPARISON: 09/05/2023 Findings: Scans through the lung bases demonstrate mild bibasilar atelectatic versus chronic interst itial changes. The liver, spleen, pancreas, gallbladder, and adrenal glands are within normal limits. There is mild right hydronephrosis and moderate left hydroureteronephrosis. No evidence of aortic aneurysm. No lym phadenopathy. No bowel obstruction or bowel wall thickening. Focal ventral hernia contains a focal loop of small [place] wel (axial image 133). Images through the pelvis were performed. Status post cystectomy with ileal conduit. Pessary device i n place. No adnexal mass evident. No definite CT evidence for rectovaginal fistula identified. Impression: No distinct CT evidence for rectovaginal fistula. Consider contrast enema study or follow-up CT with rectal contrast as indicated. Mild right hydroureteronephrosis and moderate left hydroureteronephrosis. Status post cystectomy with ileal conduit. Focal ventral hernia containing a small bowel loop, unchanged. Reviewed, dictated and finalized at [facility]. Impression: No distinct CT evidence for rectovaginal fistula. Consider contrast enema study or follow-up CT with rectal contrast as indicated. Mild right hydroureteronephrosis and moderate left hydroureteronephrosis. Statu s post cystectomy with ileal conduit. Focal ventral hernia containing a small bowel loop, unchanged.
[2023-11-28 07:05] LABS: Estimated Glomerular Filt Rate 39
== END 2023-11-28 06:37 | disposition home or self-care (01) ==
PROVIDERS: PCP Nurse Practitioner Family
DX: N13.30 Unspecified hydronephrosis (principal); K43.9 Ventral hernia without obstruction or gangrene; Z90.6 Acquired absence of other parts of urinary tract; N82.3 Fistula of vagina to large intestine
CPT/HCPCS: 74177; Q9967

== ENCOUNTER 2024-03-06 13:16 | Outpatient (CLI) | payer MEDICARE, SELFPAY ==
--- NOTE | ~2024-03-06 | MM_ITS ---
EXAMINATION: MM screening reed BI w ramses HISTORY: Screening TECHNIQUE: Craniocaudal and mediolateral oblique 3-D tomosynthesis images were obtained and synthetic 2-D images were generated. CAD analysis was submitted and interpreted. COMPARISON: Comparison to multiple prior studies sequentially, with oldest reviewed study dated 03/13. BREAST PARENCHYMAL COMPOSITION: Dense: The breasts are heterogeneously dense, which may obscure small masses FINDINGS: There is no evidence of suspicious mass, calcification, or architectural distortion to sugg est malignancy in either breast. There has been no suspicious interval change. IMPRESSION: 1. No mammographic evidence of malignancy. 2. Recommend routine screening mammography in one year. BI-RADS Category 1: Negative Reviewed, dictated and finalized at location A. VERY ROOM SUPERVISOR
== END 2024-03-06 13:17 | disposition home or self-care (01) ==
LOC: MICIMG 13:17
PROVIDERS: PCP Nurse Practitioner Family; Visit Provider Obstetrics & Gynecology
DX: Z12.31 Encounter for screening mammogram for malignant neoplasm of breast (principal)
CPT/HCPCS: 77063; 77067

== ENCOUNTER 2024-03-16 08:41 | Outpatient (CLI) | payer MEDICARE, SELFPAY ==
--- NOTE | ~2024-03-16 | CT_ITS ---
EXAMINATION: CT abdomen pelvis wo con DATE: 03/16/2024 09:01 INDICATION: Malignant neoplasm of urinary bladder. TECHNIQUE: Computed tomography (CT) of the abdomen and pelvis was performed without intravenous contr ast. Automated exposure control and iterative reconstruction technique were employed. The dose-length product was 203.36 mGy-cm. COMPARISON: CT abdomen and pelvis 11/28/2023 FINDINGS: The visualized portions of lung bases demonstrate mild atelectasis, mild bronchiectasis, an d mild emphysema. No pleural effusion. The heart size is normal. No pericardial effusion. There is di ffuse hepatic steatosis. The gallbladder, spleen, pancreas, and adrenal glands are normal. There is a n 8 mm cyst in right kidney. There is mild atrophy of left kidney. There is moderate left hydronephro sis and hydroureter. There is an ileal conduit. There is no urolithiasis. There is a pessary in the v agina. There is diverticulosis of the colon without evidence of diverticulitis. There are changes of appendectomy. There are no pathologically enlarged lymph nodes. There is no free intraperitoneal flui d. There is lumbar levoscoliosis and moderate spondylosis. IMPRESSION: 1. Stable moderate left hydronephrosis and hydroureter. Mild left kidney atrophy. Reviewed, dictated and finalized at location A. [facility] IMPRESSION: 1. Stable moderate left hydronephrosis and hydroureter. Mild left kidney atroph y.
--- OUTSIDE RECORDS SUMMARY | 2024-03-16 08:52 | XMS_ITS | Continuity of Care Document ---
Author Organization [facility] Address [address] [place] [address] [address] [place] [address] Phone Care Team Providers Care Fund Raiser Name Role Phone Hillman OD, Hussain Unavailable Unavailable Advance Directives Directive Yes / No Effective Date File Name No Information Encounters Encounter Description Practice Location Reason(s) For Visit Diagnoses Date Provider Providers Copied on Encounter [facility], [id number] [place] [address] [address], [place], [place], [id number], [place] tel:[phone] [facility] No Information Mar-2 3-200 6 Hillman OD Hussain. [address] , [address], [place], [address], [place]. tel:[phone] Family History Family Member Type Diagnosis Age At Onset No Information Payers Payer name Insurance type Covered constitution party ID Authoriza tion(s) [employer] CI [id number] Social History Type Description Quantity Date Captured [...]
--- OUTSIDE RECORDS SUMMARY | 2024-03-16 08:52 | XMS_ITS ---
Author Organization [facility] Address [address] [place] [address] Care Team Providers Care Sulfide Head Operator Name Role Phone Kyler Diop DO Unavailable [phone] Adan Andrew MD Unavailable [phone] Cyrus Schwartz DO Primary Care Provider [phone] Active Problems Problem Noted Date Diagnosed Date 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 Malignant neoplasm of urinary bladder 07/18/2020 Cancer Staging:Clinical stage from 07/18/2020:Stage II(cT2, cN0, cM0) - Signed by Kyler Diop DO on 07/20/2020 Pathologic stage from 12/05/2020: ypT0, pN0, cM0 - Signed by Kyler Diop DO on 12/07/2020 Orthostatic hypotension Anemia Current Oncology Plans No current plan information found. Past Plans Line Care Plan Name Start Date Discontinue Date Treatment Medications Discontinue Reason Plan Provider IV Maintenance Therapy Plan 08/27/2020 04/26/2023 No medications scheduled. Automatic discontinuation of dormant plans Kyler Diop DO Oncology Chemotherapy Treatment Plan Name Start Date Discontinue Date Treatment Medications Discontinue Reason Plan Provider Cycles Gemcitabine / CISplatin 21 Day Cycles - Hepatobiliary 08/01/19 21 02/11/2023 CISplatin (PLATINOL) IVPB in 250 mLgemcitabine IVPB in 250 mL (using 100 mg/ml gemcitabine) ([id number]) Automatic discontinuation of dormant plans Kyler Diop DO 4 of 4 cycles started Oncology Supportive Care Plan Name Start Date Discontinue Date Treatment Medications Discontinue Reason Plan Provider Hydration Therapy Plan 10/16/2020 04/26/2023 No medications scheduled. Automatic discontinuation of dormant plans Kyler Diop, DO Radiation Treatments * No radiation treatments are documented for this patient in [facility]. Treatments may have been administered in another system.
--- OUTSIDE RECORDS SUMMARY | 2024-03-16 08:52 | XMS_ITS | Referral Summary ---
Author Organization [facility] Address [address] [place] [id number] Care Team Providers Care Umbrella Frame Maker Name Role Phone Kyler Diop DO Unavailable [phone] Adan Andrew MD Unavailable [phone] Cyrus Schwartz DO Primary Care Provider [phone] Allergies Active Allergy Reactions Criticality Noted Date Comments Lactose Diarrhea Low 11/06/2020 Sulfa (Sulfonamide Antibiotics) Hives Medium 05/2020 Childhood reaction Medications cholecalciferol (VITAMIN D-3) 2000 unit capsule Take 2,000 Units by mouth daily Active raloxifene (EVISTA) 60 mg tablet Take 60 mg by mouth daily Active acetaminophen (TYLENOL) 325 mg tablet Take 650 mg by mouth daily as needed Active aspirin (ASPIR-81 ORAL) Take 81 mg by mouth daily Active magnesium oxide (MAG-OX) 400 mg (241.3 mg elemental magnesium) tablet Take 400 mg by mouth daily Active B-complex with vitamin C capsule Take 1 capsule by mouth daily Active glucosam/boby-m sm1/C/yolanda/bosw (GLUCOSAMINE-CH ONDROITIN 3X ORAL) Take 1 capsule by mouth daily Active ALPRAZolam (XANAX) 0.25 mg tablet Take 0.25 mg by mouth nightly as needed for anxiety Active loratadine (CLARITIN) 10 mg tablet Take 10 mg by mouth daily as needed Active Bifidobacterium infantis (ALIGN) 4 mg capsule Take 4 mg by mouth daily Active fish oil-dha-epa 1,200-144-216 mg capsule Take 1 capsule by mouth daily Active calcium carbonate (CALCIUM 600 ORAL) Take 1,200 mg by mouth daily Active ondansetron (ZOFRAN) 4 mg tablet 1 Active docusate sodium (COLACE) 100 mg capsuleIndicati ons:constipatio n Take 100 mg by mouth 2 (two) times a day Active pantoprazole DR (PROTONIX) 40 mg EC tablet 2 Active folic acid (FOLVITE) 1 mg tabletIndicatio ns:Folate Deficiency Take 1 tablet (1 mg total) by mouth daily 90 tablet 3 4 Active Bystolic 5 mg tablet Take 5 mg by mouth daily 1 12/02/19 21 Discontinue d(Discontin ued by another clinician) Active Problems Problem Noted Date Diagnosed Date 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 Malignant neoplasm of urinary bladder 07/18/2020 Cancer Staging:Clinical stage from 07/18/2020:Stage II(cT2, cN0, cM0) - Signed by Kyler Diop DO on 07/20/2020 Pathologic stage from 12/05/2020: ypT0, pN0, cM0 - Signed by Kyler Diop DO on 12/07/2020 Orthostatic hypotension Anemia Immunizations Name Administration Dates Next Due Influenza, Quadrivalent, Hig h Dose, Preservative Free, Intrr 11/19/2019 Influenza, Unspecified 11/30/2021,01/14/2021 Moderna SARS-CoV-2 Monovalen t Vaccination (12+ YRS) 01/14/2021,05/05/2020,04/03/2020 ZOSTER Recombinant 02/01/2020,11/19/2019 Social History Tobacco Use Types Packs/Day Years Used Date Smoking Tobacco: Never Smokeless Tobacco: Never AUDIT-C Answer Date Recorded Q1: How often do you have a drink containing alc ohol? Monthly or less 11/17/2020 Q2: How many drinks containi ng alcohol do you have on a typical day when you are drinking? 1 or 2 11/17/2020 Q3: How often do you have si x or more drinks on one occasion? 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 Not on file Not on file Last Filed Vital Signs Vital Sign Reading Time Taken Comments Blood Pressure 131/75 04/23/2022 8:31 AM MACHINE CEMENTER AND FOLDER Pulse 104 04/23/2022 8:31 AM MACHINE CEMENTER AND FOLDER Temperature 36.7 ??C (98 ??F) 04/23/2022 8:31 AM MACHINE CEMENTER AND FOLDER Respiratory Rate 18 04/23/2022 8:31 AM MACHINE CEMENTER AND FOLDER Oxygen Saturation 94% 04/23/2022 8:31 AM MACHINE CEMENTER AND FOLDER Inhaled Oxygen Concentration - - Weight 66.5 kg (146 lb 9.7 oz) 04/23/2022 8:31 A M MACHINE CEMENTER AND FOLDER Height 165.1 cm (5' 5 ) 04/23/2022 8:31 AM MACHINE CEMENTER AND FOLDER Body Mass Index 24.4 04/23/2022 8:31 AM MACHINE CEMENTER AND FOLDER Plan of Treatment Not on file Medical Devices Implanted Type Area Art Handler Device Identifier Shelf Expiration Date Model / Serial / Lot [employer] Raymond 160-210 7fr 80cm Open Tip Luer Lock Adapter Guidewire Graduate Straight Latex Free - [id number] Implanted:Qty: 2 on 11/17/2020 by Adan Andrew MD at [facility] Bilateral: Ureter [employer] Raymond 07/17/2024 [id number] / / [id number] Insurance MEDICARE [facility] Address: [id number] [place] [address] [facility] MEDICARE MEDICARE [facility] Address: [address] [address] [place] [address] Advance Directives For more information, please contact: [phone] Documents on File Type Date Recorded Patient Acid Supervisor Expl anation Power of Student Assistance Counselor 11/17/2020 5:38 AM * Full Code (Latest Code Status on File) Date Activated Date Inactivated Comments 11/17/2020 5:11 PM 11/22/2020 6:17 PM Care Teams Umbrella Frame Maker Relationship Specialty [place] [address] [place] [address] PCP - General Internal Medicine 09/25/21 Kyler Diop DO [address] [place] [address] MEDICAL ONCOLOGY, [address] [address] Medical Oncologist/Refractory Grinder Operator Hematology and Oncology 08/19/20 [place] [address] [place] [id number] Consulting Physician Urology 11/22/20
--- OUTSIDE RECORDS SUMMARY | 2024-03-16 08:53 | XMS_ITS | Clinical Summary ---
Author Organization [facility] Address [address] [place] [address] Care Team Providers Care Group Tester Name Role Phone Dante Franklin MD Primary Care Provider [phone] Source Comments [facility],non-owned Affiliates and Associated Physician Practices is amultiple site organization consisting of ambulatory clinics and hospital sitesin [place], [place], [place] and [place]. This disclosure is being madepursuant to the Care Everywhere program and may not contain all information available regarding this patient. Last updated 17.[facility] Allergies Active Allergy Reactions Criticality Noted Date Comments Lactose Diarrhea Low 11/06/2020 Sulfa Drugs Urticaria Medium 07/18/2020 Childhood reaction Medications * Be aware that medications may not be up to date on this document. Alwaysverify current medications with the patient. Medication Sig Dispensed Refills Start Date End Date Status ASPIRIN 81 PO Take 81 mg by mouth once daily Active ALPRAZolam (Xanax) 0.25 MG tablet Take 1 tablet 3 times a day by oral route. Active B Complex-C (Super B/C) CAPS Take 1 capsule by mouth once daily Active Vitamin D3 (D2000 Ultra Strength) 50 MCG (2000 UT) capsule Take 1 (one) capsule by mouth once daily Active Docusate Sodium (DSS) 100 MG Take 100 mg by mouth 2 times daily Active estradiol (Vagifem) 10 MCG vaginal tablet 06/11/2023 Active folic acid (Folvite) 1 MG tablet 03/04/2023 Active loratadine (Claritin) 10 MG tablet Take 1 (one) tablet by mouth once daily as needed Active magnesium oxide (Mag-Ox) 400 MG tablet Take 1 (one) tablet by mouth once daily Active [place]-3 Fatty Acids (KP Fish Oil) 1200 MG Take 1 capsule by mouth once daily Active pantoprazole EC (Protonix) 40 MG tablet 08/26/2023 Active raloxifene (Evista) 60 MG tablet 10/28/2023 Active glucosamine (Glucosamine) 500 MG capsule Take 1 (one) capsule by mouth 3 times daily with meals Active lactobacillus extra strength (Florajen) capsule Take 1 (one) capsule by mouth 3 times daily Active calcium carbonate (Caltrate) 600 MG tablet Take 1 (one) tablet by mouth daily with food Active Social History Tobacco Use Types Packs/Day Years Used Date Smoking Tobacco: Never Smokeless Tobacco: Never Tobacco Cessation:Counseling Given: No Sex and Gender Information Value Date Recorded Sex Assigned at Not on file Gender Identity Not on file Sexual Orientation Not on file Last Filed Vital Signs Vital Sign Reading Time Taken Comments Blood Pressure 141/76 11/03/2023 10:06 AM CDT 15 4/85 Pulse 115 11/03/2023 10:06 AM CDT Temperature 36.1 ??C (97 ??F) 11/03/2023 10:06 AM CDT Respiratory Rate 18 11/03/2023 10:06 AM CDT Oxygen Saturation 96% 11/03/2023 10:06 AM CDT Inhaled Oxygen Concentration - - Weight 67.9 kg (149 lb 9.6 oz) 11/03/2023 10:06 AM CDT Height 167.6 cm (5' 6 ) 11/03/2023 10:06 AM CDT Body Mass Index 24.15 11/03/2023 10:06 AM CDT Plan of Treatment Health Maintenance Due Date Last Done Comments BONE DENSITY TESTING 1940 DTAP/TDAP/TD VACCINES (1 - Tdap) 1960 PNEUMOCOCCAL VACCINE 50+ (1 of 1 - PCV) 06/22/1991 ZOSTER VACCINE (1 of 2) 06/22/1991 Respiratory Syncytial Virus (RSV) Vaccine Pt: or over 60 yrs (1 - 1-dose 75+ series) 2016 COVID-19 VACCINE (4 - 2023-2 5 season) 2023 01/14/2021, 05/05/2020, 04/03/2020 INFLUENZA VACCINE (#1) 2023 2, 01/14/2021 DEPRESSION SCREENING 02/15/2024 MEDICARE AWV ? CALENDAR YEAR 2024 HEPATITIS B VACCINE Aged Out No longe r eligible based on patient's age to complete this topic HIB VACCINE Aged Out No longer eligi ble based on patient's age to complete this topic HPV VACCINE Aged Out No longer eligi ble based on patient's age to complete this topic MENINGOCOCCAL (Group B) VACCINE Aged Out No longer eligible b ased on patient's age to complete this topic MENINGOCOCCAL VACCINE Aged Out No azar elizabeth eligible based on patient's age to complete this topic Care Teams Group Tester Relationship Specialty Start Date End Date Dante Franklin MD [address] [place] [address] PCP - General 08/08/20
--- OUTSIDE RECORDS SUMMARY | 2024-03-16 08:53 | XMS_ITS | Clinical Summary ---
Author Organization [facility] Address [address] [place] [address]. [place] [address] [place] [address] Care Team Providers Care Skin Care Technician Name Role Phone None, Provider Primary Care Provider Unavaila ble Social History Tobacco Use Types Packs/Day Years Used Date Smoking Tobacco: Never Smokeless Tobacco: Never Alcohol Use Standard Drinks/Week Comments Never 0 (1 standard drink = 0.6 oz pur e alcohol) Comments No Sex and Gender Information Value Date Recorded Sex Assigned at Not on file Legal Sex Female 3:35 PM CDT Gender Identity Not on file Sexual Orientation Not on file Last Filed Vital Signs Vital Sign Reading Time Taken Comments Blood Pressure 118/49 11/23/2020 7:45 PM CDT Pulse 84 11/23/2020 7:45 PM CDT Temperature 37.4 ??C (99.4 ??F) 11/23/2020 3:41 PM CD T Respiratory Rate 25 11/23/2020 7:45 PM CDT Oxygen Saturation 96% 11/23/2020 7:45 PM CDT Inhaled Oxygen Concentration - - Weight - - Height 167.6 cm (5' 6 ) 11/23/2020 3:41 PM CDT Body Mass Index - - Plan of Treatment Health Maintenance Due Date Last Done Comments DTaP, Tdap and Td Vaccines ( 1 - Tdap) 1959 Annual Medicare Wellness Visit 2006 Dexa Scan (General) 2006 Pneumococcal Vaccine: 65+ Years (1 of 1 - PCV) 2006 RSV Immunization or 60+ Years (1 - 1-dose 75+ series) 2016 COVID-19 Vaccine (3 - 2023-2 5 season) 2023 05/05/2020, 04/03/2020 Influenza Adult (#1) 2023 11/19/2019 Zoster Vaccines Completed 02/01/2020, 11/19/2019 Meningococcal B Vaccine Aged Out No l onger eligible based on patient's age to complete this topic Meningococcal Vaccine Aged Out No azar elizabeth eligible based on patient's age to complete this topic RSV Immunizations Under 20 Months Aged Out No longer eligible b ased on patient's age to complete this topic Insurance MED REPLACE [facility] MEDICARE Care Teams Skin Care Technician Relationship Specialty Start Date End Date None, Provider, PCP - General 11/23/20
--- OUTSIDE RECORDS SUMMARY | 2024-03-16 08:53 | XMS_ITS | Patient Health Summary ---
Author Organization [facility] Address [address] [facility] [place] [address] Care Team Providers Care Fire Information Officer Name Role Phone Dante Franklin MD Primary Care Provider [phone] [facility],non-owned Affiliates and Associated Physician Practices is amultiple site organization consisting of ambulatory clinics and hospital sitesin [place], [place], [place] and [place]. This disclosure is being madepursuant to the Care Everywhere program and may not contain all information available regarding this patient. Last updated 17.[facility] Allergies * Lactose(Diarrhea) -Low Criticality * Sulfa Drugs(Urticaria) -Medium Criticality Medications * Be aware that medications may not be up to date on this document. Alwaysverify current medications with the patient. * ASPIRIN 81 PO Take 81 mg by mouth once daily * ALPRAZolam (Xanax) 0.25 MG tablet Take 1 tablet 3 times a day by oral route. * B Complex-C (Super B/C) CAPS Take 1 capsule by mouth once daily * Vitamin D3 (D2000 Ultra Strength) 50 MCG (2000 UT) capsule Take 1 (one) capsule by mouth once daily * Docusate Sodium (DSS) 100 MG Take 100 mg by mouth 2 times daily * estradiol (Vagifem) 10 MCG vaginal tablet(Started 06/11/2023) * folic acid (Folvite) 1 MG tablet(Started 03/04/2023) * loratadine (Claritin) 10 MG tablet Take 1 (one) tablet by mouth once daily as needed * magnesium oxide (Mag-Ox) 400 MG tablet Take 1 (one) tablet by mouth once daily * [place]-3 Fatty Acids (KP Fish Oil) 1200 MG Take 1 capsule by mouth once daily * pantoprazole EC (Protonix) 40 MG tablet(Started 08/26/2023) * raloxifene (Evista) 60 MG tablet(Started 10/28/2023) * glucosamine (Glucosamine) 500 MG capsule Take 1 (one) capsule by mouth 3 times daily with meals * lactobacillus extra strength (Florajen) capsule Take 1 (one) capsule by mouth 3 times daily * calcium carbonate (Caltrate) 600 MG tablet Take 1 (one) tablet by mouth daily with food Social History Tobacco Use Types Packs/Day Years [...] Mass Index 24.15 11/03/2023 10:06 AM CDT Care Teams Fire Information Officer Relationship Specialty Start Date End Date Dante Franklin MD [address] [place] [id number] PCP - General 08/08/20
--- OUTSIDE RECORDS SUMMARY | 2024-03-16 08:53 | XMS_ITS | Clinical Summary ---
Author Organization [facility] Address [address] [place] [address] Care Team Providers Care Glue Bone Crusher Name Role Phone Kyler Diop DO Unavailable [phone] Adan Anderw MD Unavailable [phone] Cyrus Schwartz DO Primary Care Provider [phone] Allergies Active Allergy Reactions Criticality Noted Date [...] Vaccination (12+ YRS) 01/14/2021,05/05/2020,04/03/2020 ZOSTER Recombinant 02/01/2020,11/19/2019 Surgical History Surgery Date Site/Laterality Comments COLONOSCOPY APPENDECTOMY KNEE SURGERY Right fractured knee cap TRANSURETHRAL RESECTION OF B LADDER TUMOR 06/17/2020 PORTACATH PLACEMENT Right Medical History Medical History Date Comments Anxiety Bladder cancer (HCC) Hypertension Osteoporosis Family History Medical History Relation Name Comments No Known Problems Father No Known Problems Mother Breast cancer Other Relation Name Status Comments Father Mother Other Social History Tobacco Use Types Packs/Day Years [...] file Not on file Not on file Obstetrics History Last Filed Vital Signs Vital Sign Reading Time Taken Comments Blood Pressure 131/75 04/23/2022 8:31 AM RETIREMENT OFFICER Pulse 104 04/23/2022 8:31 AM RETIREMENT OFFICER Temperature 36.7 ??C (98 ??F) 04/23/2022 8:31 AM RETIREMENT OFFICER Respiratory Rate 18 04/23/2022 8:31 AM RETIREMENT OFFICER Oxygen Saturation 94% 04/23/2022 8:31 AM RETIREMENT OFFICER Inhaled Oxygen Concentration - - Weight 66.5 kg (146 lb 9.7 oz) 04/23/2022 8:31 A M RETIREMENT OFFICER Height 165.1 cm (5' 5 ) 04/23/2022 8:31 AM RETIREMENT OFFICER Body Mass Index 24.4 04/23/2022 8:31 AM RETIREMENT OFFICER Plan of Treatment Health Maintenance Due Date Last Done Comments Depression Screening 1940 Osteoporosis Screening-Bone Density Scan 1941 DTaP/Tdap/Td Vaccine (1 - Tdap) 1952 Hepatitis B Screening 06/22/1959 Pneumococcal vaccine 65+ (1 of 1 - PCV) 2006 Well Visit 65+ 2006 Fall Risk Assessment 11/22/2021 11/22/2020 Covid-19 Vaccine ( season) 2023 01/14/2021, 05/05/2020, 04/03/2020 Influenza Vaccine (#1) 2023 2, 01/14/2021, 11/19/2019 Zoster Vaccine Completed 02/01/2020, 11/19/2019 Medical Devices Implanted Type Area Belt And Link Shop Supervisor Device Identifier Shelf Expiration Date Model / Serial / Lot [place] [employer] Raymond 160-210 7fr 80cm Open Tip Luer Lock Adapter Guidewire Graduate Straight Latex Free - [id number] Implanted:Qty: 2 on 11/17/2020 by Adan Andrew MD at [facility] Bilateral: Ureter [employer] Raymond 07/17/2024 160-210 / / [id number] Insurance MEDICARE [employer] [facility] MEDICARE [facility] Address: [address] [place] [address] MEDICARE [employer] Advance Directives For more information, please contact: [phone] Documents on File Type Date Recorded Patient Fruit Express Agent Expl anation Power of Technical Training Instructor 11/17/2020 5:38 AM * Full Code (Latest Code Status on File) Date Activated Date Inactivated Comments 11/17/2020 5:11 PM 11/22/2020 6:17 PM Care Teams Glue Bone Crusher Relationship Specialty [place] [address] [place] [id number] PCP - General Internal Medicine 09/25/21 Kyler Diop DO [address] [place] [address] MEDICAL ONCOLOGY, [address] [address] Medical Oncologist/Pockets And Pieces Necktie Operator Hematology and Oncology 08/19/20 [place] [address] [place] [id number] Consulting Physician Urology 11/22/20
--- OUTSIDE RECORDS SUMMARY | 2024-03-16 08:53 | XMS_ITS | Data Portability ---
Author Organization [place] [facility], Main Office Address [address] [place] [address] Care Team Providers Care Collections Curator Name Role Phone JONI ELKINS Primary Care Provider JONI ELKINS Referring Provider [phone] Assessment Encounter Date Assessment Date Assessment LastModified by Organization Details LastModified Time 04/04/2023 04/04/2023 HPI: 82-year-old female came in today for evaluation of her right anterior knee pain. This pain started about a month ago spontaneously. She was wearing knee-high supports socks and that where the very top with the sock wrapped around the upper tibia is where she started feeling this pain. It was kind of at the tibial tubercle as well as just medial to that. She has been resting for the last month and overall symptoms have gotten quite a bit better. She has not been taking any anti-inflammatori es. She has been taking occasional Tylenol. In the Physical exam: 82-year-old female alert pleasant. She has no effusion in the right knee. Range of motion is from 0-135 degrees. There is no pain with range of motion. There is no medial or lateral joint line tenderness. There is no pain with patellofemoral grind. There is no prominence of any of the hardware in the patella in either flexion or extension. She has some very minor tenderness at the tibial tubercle and just medial to the tubercle on the medial tibial plateau. No tenderness to the pes bursa. Skin is all intact and normal. Impression: 82-year-old female who had some tenderness over the anterior tibia. This could have been due to the knee-high sock putting compression on this area causing some bone soreness. Patient's x-rays look excellent, she has no arthritic changes. There is no prominence of hardware and where she is tender there is no hardware in this area either. Overall patient is improving quickly from her discomfort and will hopefully continue to improve. If she does not see will call otherwise ww will see her back as needed. 20 minutes was spent to treatment patient with more than half of this in [id number] conversation Not available 04/04/2023 16:35:36 Plan of Treatment Reminders Order Date Submit Date Provider Last Modified By Organization Details Last Modified Time Details Appointments None record ed. Lab None record ed. Referral None record ed. Procedures None record ed. Surgeries None record ed. Imaging XR, knee 024 04/04/19 24 [facility] [place], [address] [facility] [address], [place], [address], 4 19:20:15 Medication Orders None record ed. Patient TargetsNo targets recorded. Patient InstructionsNo instructions recorded. Reason for Referral None Reported. Results Created Date Observation Date Name Description Value Unit Range Abnormal Flag Note LastModifiedBy Organization Detail LastModifiedTime 04/04/19 24 XR, knee No observ ation record ed. [facility] [place] [address] [facility] [address], [place], [address], 04/04/2023 16:32:28 Result Notes None recorded. Problems Name Problem SNOMED Code Status Onset Date Resolution Date Notes Provider Name and Address Organization Details Recorded Time Adhesive capsulitis of shoulder 604018685 Active Not [facility] 13:51:[facility] Pain of right knee joint 5702363870424 00 Active 2023 ABEL Grace [place] [facility] [employer] [facility] 4 16:04:25 Problem Notes None recorded. Procedures Surgical History Date Name Laterality Status Provider Name and Address Organization Details Recorded Time Appendectomy completed ABEL Grace [employer] [place] 04/04/2023 16:03:31 Bladder completed ABEL Grace [place] [facility] [employer] [place] 04/04/2023 16:03:40 Imaging Results Imaging Date Name Status LastModified by Organiz ation Details LastModified Time 04/04/2023 XR, knee completed [facility] [place] [address], [place], [address], 04/04/2023 16:32:28 Procedure Notes None recorded. Medical Equipment None Reported. Medications Name Sig Start Date Stop Date Status Note LastModified by Organization Details LastModified Time oxycodone-roshan taminophen 5 mg-325 mg tablet 04/04 completed Not Available Not Available Not Available terbinafine HCl 250 mg tablet 04/04 completed Not Available Not Available Not Available alprazolam 0.25 mg tablet Take 1 tablet 3 times a day by oral route. active Not Available Not Available No t Available raloxifene 60 mg tablet 04/04 completed Not Available Not Available Not Available folic acid 1 mg tablet active Not Available Not Available No t Available methylprednis olone 4 mg tablets in a dose pack active Not Available Not Available No t Available amoxicillin 875 mg-potassium clavulanate 125 mg tablet 04/04 completed Not Available Not Available Not Available nitrofurantoi n monohydrate/m acrocrystals 100 mg capsule 05/11 completed Not Available Not Available Not Available Aspir-81 2017 active Not Available Not Available Not Avai lable estradiol 10 mcg vaginal tablet active Not Available Not Available Not Available Vitals Date Recorded Body height Provider Name an d Address Organization Details Last Updated DateTime 04/04/2023 165.1 cm ABEL Grace [facility] 04/04/2023 16:11:07 Date Recorded Body mass index (BMI) Provider Name and Address Organization Details Last Updated DateTime 04/04/2023 24.1 kg/m2 ABEL Grace [facility] [employer] [facility] 04/04/2023 16:11:09 Date Recorded Body weight Provider Name an d Address Organization Details Last Updated DateTime 04/04/2023 78387.89 g ABEL Grace [facility] [employer] [facility] 04/04/2023 16:11:10 Social History Question Answer Notes LastModified by Organizat ion Details LastModified Time Tobacco Smoking Status Never Smoker ABEL Grace null [facility] [employer] [facility] 04/04/2023 16:03:25 What Is Your Level Of Alcohol Consumption? Occasional [email or web address] Information not available 04/04/2023 Sex: Unknown Functional Status None recorded. Mental Status None recorded. Family History Relationship Description Onset Age of this Age Resolved Age Notes LastModified by Organization Details LastModified Time Father Heart disease Not available 2023 16:03:00 Mother Heart disease [email or web address] Not available 2023 16:03:00 Mother Hypertensive disorder [email or web address] Not available 2023 16:03:13 Medical History Condition Response CANCER: SPECIFY Y URINARY/BLADDER/KIDNEY PROBLEMS Y Gynecological HistoryNo gynecological history recorded. Obstetrics History GPAL:G 0 P 0 0 0 0 Past Encounters Encounter ID Performer Location Encounter Start Date Encounter Closed Date Diagnosis/Indication Diagnosis SNOMED-CT Code Diagnosis ICD10 Code Diagnosis Note [id number] Jose Maria Neves MD [facility] [place] [address] [place] [address] 04/04/2023 15:40:23 04/04/2023 16:38:04 Pain of right knee joint 6605055335 91141 M25.561 Health Concerns Section Related Observation LastModified by Organization Detai ls LastModified Time None Recorded Concern Status LastModified by Organization Details LastModified Time None Recorded Advance Directives Directive None Recorded Payers Encounter Date Sequence Insurance Name Policy Number Policy [place] Covered Member ID [employer] Member ID Guarantor Name 04/04/2023 1 [employer] (MEDICARE REPLACEMENT PPO) [id number] 1 Nikia Zeng [id number] Nikia Zeng OBGyn Episode No OBEpisode recorded.
--- OUTSIDE RECORDS SUMMARY | 2024-03-16 08:53 | XMS_ITS | Referral Summary ---
Author Organization [facility] Address [address] [place] [address] Care Team Providers Care Sales Closer Name Role Phone Dante Franklin MD Primary Care Provider [phone] Source Comments [facility],non-owned Affiliates and Associated Physician Practices is amultiple site organization consisting of ambulatory clinics and hospital sitesin [place], [place], [place] and [place]. This disclosure is being madepursuant to the Care Everywhere program and may not contain all information available regarding this patient. Last updated 17.[facility] Allergies Active Allergy Reactions Criticality Noted Date [...] (one) tablet by mouth once daily Active [place]-3 Fatty Acids (KP Fish Oil) 1200 MG [...] 11/03/2023 10:06 AM CDT Plan of Treatment Not on file Care Teams Sales Closer Relationship Specialty Start Date End Date Dante Franklin MD [address] [place] [address] PCP - General 08/08/20
--- OUTSIDE RECORDS SUMMARY | 2024-03-16 08:53 | XMS_ITS | Data Portability ---
Author Organization [facility] Address [address] [place] [address] [place] [address] Care Team Providers Care Township Clerk Name Role Phone CASANDRA RAHUL Primary Care Provider JONI ELKINS Primary Care Provider Assessment No assessment recorded. Plan of Treatment Reminders Order Date Submit Date Provider Last Modified By Organization Details Last Modified Time Details Appointments PESSARY 2024 08:30A Claribel VALLECILLO MD Not available Not available Not available Lab None recorded. Referral None recorded. Procedures None recorded. Surgeries None recorded. Imaging US, pelvis 2023 024 [email or web address], [address], [place], [address], 12/21/2023 21:46:41 US, transvagi nal 2023 024 [email or web address], [address], [place], [address], 12/21/2023 21:46:41 Medication Orders clindamyc in 2 % vaginal cream 2024 025 NG [id number], [address], [place], [place], [id number], 02/28/2024 22:32:04 Patient TargetsNo targets recorded. Patient InstructionsNo instructions recorded. Reason for Referral None Reported. Results Created Date Observation Date Name Description Value Unit Range Abnormal Flag Note LastModifiedBy Organization Detail LastModifiedTime 12/21/19 24 12/21/2023 US, pelvi s No observ ation [facility] [address], [place], [address], 12/21/2023 17:27:52 12/21/19 24 12/21/2023 US, trans vagin al No observ ation record ed. [facility] [address], [place], [address], 12/21/2023 17:28:03 12/21/19 24 12/21/2023 US, pelvi s No observ ation record ed. [email or web address], [place], [address], 12/21/2023 21:46:32 03/06/19 25 03/06/2024 MAMMO , scree tomeka, bilat eral No observ ation record ed. CINTHIA [facility] [address], [place], [address], 03/07/2024 11:51:33 Result Notes None recorded. Problems Name Problem SNOMED Code Status Onset Date Resolution Date Notes Provider Name and Address Organization Details Recorded Time Screenin g for malignan t neoplasm of rectum Completed 201807/01/2020 Encounte r for screenin g for malignan t neoplasm of rectum;P ractice ID: 0001 Danielle Fields MD [address], [place], [address], [facility] 17:43:[address] Concept Completed 201807/01/2020 Encntr for bid writer exam (general ) (routine ) w/o abn findings ;Practic e ID: 0001 Danielle Fields MD [address], [place], [address], [facility] 17:43:44 Evaluati on finding Completed 201807/01/2020 Hematuri a, unspecif ied;Prac salvador ID: 0001 Danielle Fields MD [address], [place], [address], [facility] 1 17:43:[address] Concept Completed 201707/01/2020 Encounte r for general adult medical exam w abnormal findings ;Practic e ID: 0001 Danielle Fields MD [address], [place], [address], [facility] 1 17:43:33 Adult health examinat ion Completed 201307/01/2020 Routine general medical examinat ion at a health care facility ;Practic e ID: 0001 Danielle Fields MD [address], [place], [address], [facility] 1 17:43:23 Microsco pic hematuri a [id number] Completed 201306/16/2021 HEMATURI A MICROSCO PIC;Prac salvador ID: 0001 Suad martel, [facility] 2 14:21:10 Screenin g for malignan t neoplasm of cervix Completed 201107/01/2020 Pap Smear;Pr actice ID: 0001 Danielle Fields MD [address], [place], [address], [facility] 1 17:43:37 Speciali zed medical examinat ion Completed 201107/01/2020 Routine gynecolo gical examinat ion;Prac salvador ID: 0001 Danielle Fields MD [address], [place], [address], [facility] 1 17:43:46 Disorder of bone and articula r cartilag e [id number] Completed 201106/16/2021 Osteopen ia;Pract ice ID: 0001 Suad Aguirre [facility] 2 14:21:10 Blood leukocyt e number above referenc e range [id number] Completed 201507/01/2020 Elevated white blood cell count, unspecif ied;Baron rded Elsewher e: No Locat ion: [facility] S ource: EHR Geological Engineer rashmi: N Practi ce ID: 0001 Sampson lable Time: 08:30:00 AM Danielle Fields MD [address], [place], [address], [facility] 1 17:43:30 Hyperten sive disorder [id number] Completed 201806/16/2021 HTN;Baron rded Elsewher e: No Locat ion: [facility] S ource: EHR Geological Engineer rashmi: N Practi ce ID: 0001 Sampson lable Time: 10:30:00 AM Suad Aguirre [facility], [facility] 2 14:21:10 Vaginiti s and vulvovag initis Completed 201307/01/2020 Vaginiti s and vulvovag initis, unspecif ied;Prac salvador ID: 0001 Danielle Fields MD [address], [place], [address], [facility] 17:43:[address] Concept Completed 201807/01/2020 Encntr for general adult medical exam w/o abnormal findings ;Recorde d Elsewher e: No Locat ion: [facility] S ource: EHR Geological Engineer rashmi: N Practi ce ID: 0001 Sampson lable Time: 10:30:00 AM Danielle Fields MD [address], [place], [address], [facility] 1 17:43:42 Uterine prolapse [id number] Active 2022 Vaginal wall/jayne rine prolapse PRE[facility]- [address], [place], [address], [facility] 15:48:57 Problem Notes None recorded. Procedures Surgical History Date Name Laterality Status Provider Name and Address Organization Details Recorded Time 09/19/19 24 Pessary Insertion completed Amsih Vallecillo MD [address], [place], [address], [facility] 09/19/2023 16:13:11 05/31/19 24 Pessary Insertion completed Laura Bello [facility] [address], [place], [address], [facility] 05/31/2023 10:15:16 03/01/19 24 Pessary Insertion completed Laura Bello [facility] [address], [place], [address], [facility] 03/01/2023 10:29:04 11/26/19 23 Pessary Insertion completed Laura Bello [facility] [address], [place], [address], [facility] 11/25/2022 17:00:25 09/03/19 23 Pessary Insertion completed Laura Bello [facility] [address], [place], [address], [facility] 09/02/2022 12:44:23 12/23/19 22 Date of Last Mammogram completed Toma Carson [facility] 11/25/2022 11:02:32 11/24/19 22 Most Recent Bone Density completed Toma Carson [facility] 11/25/2022 11:02:36 11/18/19 21 completed Suad Aguirre [facility] 06/17/2021 11:32:51 10/04/20 21 Partial Hysterectomy completed [facility] 09/19/2023 15:47:48 07/03/19 21 Date of Last Pap Smear completed [facility] 06/17/2021 11:38:58 02/14/19 18 appendectomy completed [facility] 09/19/2023 15:46:49 02/14/19 08 Date of Last Colonoscopy completed [facility] 09/19/2023 15:46:26 02/14/19 08 Colonoscopy completed [facility] 06/16/2021 17:29:25 02/14/19 07 procedure on patella completed [facility] 09/19/2023 15:47:20 Imaging Results Imaging Date Name Status LastModified by Organization Details LastModified Time 12/21/2023 US, pelvis completed carlos Gavin [address], [place], [address], 12/21/2023 17:27:52 12/21/2023 US, transvaginal completed carlos maldonado [address], [place], [address], 12/21/2023 17:28:03 12/21/2023 US, pelvis completed [email or web address], [place], [address], 12/21/2023 21:46:32 03/06/2024 MAMMO, screening, bilateral completed CINTHIA [facility] [address], [place], [address], 03/07/2024 11:51:33 Procedure Notes None recorded. Medical Equipment None Reported. Allergies Allergen ID Allergen Name Allergen Category Reaction Reaction Severity Criticality Documentation Date Start Date Code Code System Note Provider Name and Address Organization Details Recorded Time 56543 sulfameth oxazole medicatio n Not available Not available Not available 02/01/2020 11064 RxNorm Comme nt: [facility]; Not Available [facility] 0 14:14:53 2255 Substance with sulfonami de structure and antibacte rial mechanism of action (substanc e) medicatio n Not available Not available Not available 11/19/2019 38550 8003 SNOMED [facility] 0 12:17:48 2256 trimethop rim medicatio n Not available Not available Not available 11/19/2019 43486 RxNorm Kimberly [facility]ales [facility] 0 12:17:54 Medications Name Sig Start Date Stop Date Status Note LastModified by Organization Details LastModified Time hydrocodo ne 5 mg-acetam inophen 325 mg tablet 06/17 completed Not Available Not Available Not Available lisinopri l 20 mg tablet 06/17 completed Not Available Not Available Not Available ondansetr on HCl 4 mg tablet 06/17 completed Not Available Not Available Not Available prednison e 20 mg tablet 06/17 completed Not Available Not Available Not Available metronida zole 500 mg tablet 06/17 completed Not Available Not Available Not Available ciproflox acin 500 mg tablet take 1 tablet by oral route every 12 hours. Return to office to leave urine sample when complete . 07/01 completed Not Available Not Available Not Available omeprazol e 40 mg capsule,d elayed release Take 1 capsule every day by oral route. 11/25 completed Not Available Not Available Not Available lovastati n 10 mg tablet take 1 tablet (10MG) by oral route every day with the evening meal 04/12 completed Prescrib ed Elsewher e: No Locat ion: Blair maldonado [facility] M odify By: amkuhl Arnol ncounter DateTime : 01/10/20 11 06:00:32 PM Not Available Not Available Not Available alprazola m 0.25 mg tablet Take 1 tablet 3 times a day by oral route. active Not Available Not Available No t Available Metrogel Vaginal 0.75 % (37.5 mg/5 gram) insert 1 applicat orful by vaginal route every day at bedtime for 5 nights 04/12 completed Prescrib ed Elsewher e: No Locat ion: Blair maldonado [facility] odify By: amksharyn ruthunter DateTime : 10/02/19 14 03:00:58 PM Not Available Not Available Not Available hyoscyami ne 0.125 mg disintegr ating tablet 06/17 completed Not Available Not Available Not Available pantopraz ole 40 mg tablet,de layed release active Not Available Not Available Not Available lisinopri l 10 mg tablet 06/17 completed Not Available Not Available Not Available magnesium 100 mg capsule active Prescrib ed Elsewher e: Yes Loca tion: Blair maldonado [facility] odify By: everette Maldonado ncounter DateTime : 03/11/19 12 09:45:00 AM Not Available Not Available Not Available buspirone 7.5 mg tablet Take 1 tablet twice a day by oral route. 11/25 completed Not Available Not Available Not Available raloxifen e 60 mg tablet TAKE 1 TABLET BY MOUTH EVERY DAY active Not Available Not Available No t Available folic acid 1 mg tablet active Not Available Not Available Not Available clindamyc in 2 % vaginal cream Insert 1 applicat orful every day by vaginal route. active Not Available Not Available No t Available estradiol 0.01% (0.1 mg/gram) vaginal cream 03/01 completed Not Available Not Available Not Available methylpre dnisolone 4 mg tablets in a dose pack 08/14 completed Not Available Not Available Not Available neomycin 500 mg tablet 04/07 completed Not Available Not Available Not Available Vitamin D2 1,250 mcg (50,000 unit) capsule take 1 capsule ([id number] ITS) by oral route every week 04/12 completed Prescrib ed Elsewher e: No Locat ion: [facility] odify By: amksharyn Maldonado ncounter DateTime : 09/29/19 14 09:57:15 AM Not Available Not Available Not Available Stanback Headache Powder 650 mg oral packet 04/07 completed Prescrib ed Elsewher e: Yes [facility] odify By: everette menjivar DateTime : 03/11/19 12 09:45:00 AM Not Available Not Available Not Available amoxicill in 500 mg-potass ium clavulana te 125 mg tablet 11/25 completed Not Available Not Available Not Available Asprin Ec Low Dose 81 mg tablet,de layed release Take 1 tablet every day by oral route. active Not Available Not Available No t Available Premarin 0.625 mg/gram vaginal cream Use 1gm nightly x 2wks then, 2x/wk @[facility] for maintena nce 06/17 completed Not Available Not Available Not Available nitrofura ntoin monohydra te/macroc rystals 100 mg capsule 07/01 completed Not Available Not Available Not Available duloxetin e 20 mg capsule,d elayed release Take 1 capsule twice a day by oral route. 08/14 completed Not Available Not Available Not Available Calcio Jacob 500 mg tablet 06/17 completed Prescrib ed Elsewher e: Yes Loca tion: [facility] odify By: everette menjivar DateTime : 03/11/19 12 09:45:00 AM Not Available Not Available Not Available magnesium 07/01 completed Not Available Not Available Not Available loratadin e 05/30 completed Not Available Not Available Not Available calcium active Not Available Not Avail able Not Available Fish Oil active Not Available Not Avai lable Not Available Colace active Not Available Not Availa ble Not Available Glucosami ne 07/01 completed Not Available Not Available Not Available Vitamin D3 10 mcg (400 unit) capsule active Prescrib ed Elsewher e: Yes [facility] odify By: everette menjivar DateTime : 03/11/19 12 09:45:00 AM Not Available Not Available Not Available B Complex 1.7 mg-20 mg-2 mg-1.2 mg/mL sublingua l liquid active Prescrib ed Elsewher e: Yes [facility]oca [facility] odify By: everette menjivar DateTime : 03/11/19 12 09:45:00 AM Not Available Not Available Not Available Bystolic 2.5 mg tablet take 2 tablet by oral route every day 06/17 completed Prescrib ed Elsewher e: Yes Loca tion: [facility] maldonado [facility] odify By: tor menjivar DateTime : 04/12/19 15 10:00:00 AM Not Available Not Available Not Available Bystolic 5 mg tablet 06/17 completed Not Available Not Available Not Available estradiol 10 mcg vaginal tablet Insert 1 tablet twice a week at bedtime for postmeno pausal atrophy & Hx of UTI active Not Available Not Available No t Available Probiotic 06/17 completed Not Available Not Available Not Available [place] 3 Fish Oil 684 mg-1,200 mg capsule,d elayed release 06/17 completed Prescrib ed Elsewher e: Yes Loca tion: [facility] maldonado [facility] odify By: everette menjivar DateTime : 03/11/19 12 09:45:00 AM Not Available Not Available Not Available glucosami ne-chondr oitin 500 mg-400 mg-66 mg-3 mg capsule 04/07 completed Prescrib ed Elsewher e: Yes Loca tion: [facility] maldonado [facility] odify By: tor menjivar DateTime : 08/30/19 19 10:30:00 AM Not Available Not Available Not Available Probiotic 3 billion cell capsule 04/07 completed Prescrib ed Elsewher e: Yes [facility] By: tor menjivar DateTime : 08/30/19 19 10:30:00 AM Not Available Not Available Not Available Bifidobac terium animalis active Not Available Not Available Not Available Womens Daily Gummies 05/30 completed Not Available Not Available Not Available Shingrix (PF) 50 mcg/0.5 mL intramusc ular suspensio n, kit 06/17 completed Not Available Not Available Not Available Fluzone High-Dose Quad 2020-21 (PF) 240 mcg/0.7 mL IM syringe 06/17 completed Not Available Not Available Not Available Vitals Date Recorded Body height Body mass index (BMI) Body weight Systolic blood pressure Diastolic blood pressure Provider Name and Address Organization Details Last Updated DateTime 12/20/2023 165.1 cm 25.3 kg/m2 05514.04 g 146 mm[Hg] 83 mm[Hg] Toma [facility] 4 12:00:37 Date Recorded Body height Body mass index (BMI) Body weight Systolic blood pressure Diastolic blood pressure Provider Name and Address Organization Details Last Updated DateTime 01/09/2024 165.1 cm 25.5 kg/m2 35226.63 g 144 mm[Hg] 79 mm[Hg] Toma [facility] 4 15:14:08 Date Recorded Body height Body mass index (BMI) Body weight Systolic blood pressure Diastolic blood pressure Provider Name and Address Organization Details Last Updated DateTime 02/28/2024 165.1 cm 25.1 kg/m2 32640.45 g 146 mm[Hg] 83 mm[Hg] [facility] 5 12:01:31 Social History Question Answer Notes LastModified by Organizat ion Details LastModified Time Tobacco Smoking Status Never Smoker [facility]iza [facility] 09/02/2022 12:24:30 Do You Have An Advance Directive? Yes Information n ot available 06/17/2021 What Is Your Level Of Alcohol Consumption? Occasional Information not available 06/16/2021 Are You Blind Or Do You Have Difficulty Seeing? No Information n ot available 06/16/2021 What Is Your Level Of Caffeine Consumption? Occasional Information not available 06/16/2021 In The 14 Days Before Symptom Onset, Have You Had Close Contact With A Laboratory-confirm ed COVID-19 While That Case Was Ill? No Information n ot available 06/17/2021 In The 14 Days Before Symptom Onset, Have You Had Close Contact With A Person Who Is Under Investigation For COVID-19 While That Person Was Ill? No Information not available 06/17/2021 Have You Been To An Area Known To Be High Risk For COVID-19? No Information not available 06/17/2021 Are You Deaf Or Do You Have Serious Difficulty Hearing? No Information not available 06/16/2021 What Type Of Diet Are You Following? REGULAR Information n ot available 06/16/2021 What Is The Highest Grade Or Level Of School You Have Completed Or The Highest Degree You Have Received? [id number] Information not available 06/17/2021 What Is Your Occupation? Retired Information not available 06/17/2021 Are There Any Guns Present In Your Home? Yes Information not available 06/17/2021 Do You Use Protection During Sex? No Information not available 06/17/2021 Do You Use Your Seat Belt Or Car Seat Routinely? Yes Information not available 06/16/2021 Do You Have Smoke And Carbon Monoxide Detectors In Your Home? Yes Information not available 06/16/2021 How Much Tobacco Do You Smoke? No Information not available 06/17/2021 Do You Feel Stressed (tense, Restless, Nervous, Or Anxious, Or Unable To Sleep At Night)? [id number] [email or web address] Information not available 09/19/2023 Do You Use Any Illicit Or Recreational Drugs? No Information not available 06/16/2021 Do You Use Sunscreen Routinely? Yes [email or web address] Information not available 09/19/2023 Has Tobacco Cessation Counseling Been Provided? No [email or web address] Information not available 09/19/2023 Have You Used IV Drugs? No Information not available 06/17/2021 Do You Or Have You Ever Used Any Other Forms Of Tobacco Or Nicotine? No [email or web address] Information not available 09/19/2023 Sex: Unknown Functional Status Question Answer Note LastModified by Organizat ion Details LastModified Time Do you have difficulty walking or climbing stairs? No Information not available 09/02/2022 Are you able to walk? [email or web address] Information not available 06/16/2021 Are you able to care for yourself? Yes Information not available 09/02/2022 Do you have difficulty dressing or bathing? No Information not available 09/02/2022 What is your exercise level? Occasional Information not available 06/16/2021 Mental Status None recorded. Family History Relationship Description Onset Age of this Age Resolved Age Notes LastModified by Organization Details LastModified Time Mother Diabetes mellitus [email or web address] Not available 2019 12:18:21 Mother Coronary arterioscler osis [email or web address] Not available 2023 11:13:00 Father Coronary arterioscler osis [email or web address] Not available 2023 11:13:00 Paternal Aunt Malignant tumor of breast Not available 2021 11:41:50 Medical History Condition Response Allergies (Food, seasonal, environmental ) N Other N Drug/Latex Allergies/Reactions N Blood Transfusion N Breast Cancer N Dermatologic Disorders N Lung Disease N Defects or Inherited Disease N Breast Problem N Gestational Diabetes N Hematologic disorders N Anesthesia Complications N History of STI N Deep Vein Thrombosis N Polycystic ovary syndrome N Anxiety Disorder Y Autoimmune disease N Arthritis N Polyps N Infertility N Acid Reflux (GERD) Y History of abnormal pap N Cancer N Varicosities N Stroke N Neurologic/Epilepsy N Endometriosis N High Cholesterol N Fibromyalgia N Headaches N Kidney Disease N Heart Problems N Thyroid Problems N Kidney or Bladder Problems Y GI Problems N Eating Disorder N Anemia N Art (IVF or FET) N Psychiatric Illness N Ovarian Cancer N Diabetes N Pulmonary (TB, Asthma) N Hepatitis/Liver Disease N No Past Medical History N Eczema N Urinary Tract Infection N Abuse/Domestic Violence N Asthma N Trauma/Violence N Depression/ depression Y Heart Disease N Pre-Eclampsia N Hypertension N Osteoporosis N Thrombophilias N Gynecological History Statement/Question Response Abnormal Pap Y Date of Last Mammogram 12/22/2021 Date of LMP 02/14/1991 N Was last menstrual period normal Y STIs/STDs N HPV Vaccine N Duration of Flow (days) 5 Current Control Method Menopause If Post Menopausal, Age at Menopause 51 Date of Last Colonoscopy 02/14/2007 Frequency of Cycle (Q days) 1 Most Recent Bone Density 11/23/2021 Sexually Active? N Menses Monthly N Age of first menstrual cycle 16 Date of Last Pap Smear 07/02/2020 Sexual Problems? N Desired Control Method Hysterectom y LMP Unknown 11/17/2020 Y Obstetrics History GPAL:G 0 P 0 0 0 0 Type Value Living 0 Total 0 Past Encounters Encounter ID Performer Location Encounter Start Date Encounter Closed Date Diagnosis/Indication Diagnosis SNOMED-CT Code Diagnosis ICD10 Code Diagnosis Note [id number] Laura Bello [facility] [address] [address] 11/19/2019 12:15:22 11/19/2019 12:53:35 Vaginal dryness 90697307 N89.8 Doing well on Premarin & would like to continue. Time spent in visit is a total of 26 mins with at least 50% of visit consisting of counseling and review of plan of care. Postmenopa usal osteopenia [id number] M85.80 On Evista currently. Would like to continue. We agreed to re-evaluat e next year when Dexa due in 2020. We discussed taking holiday from this medication if has been on >5yrs or not making progress with this therapy. Consider bone specialist referral moving forward. [employer] 2019 [place]. [id number] Laura Bello [facility] [address],[place] [address] 03/25/2020 14:06:42 03/25/2020 15:42:03 Atrophic vaginitis 10669368 N95.2 After much discussion , we realized that patient was not using correct dosage as initially prescribed and also using sporadical ly only when having sx's. We discussed the following regimen and importance of consistenc y if goals of therapy to be met. Because she does gain improvemen t with premarin cream the following is recommende d: 1. Premarin Cream 1gm PV 4x/wk 2. Moisturize Daily moisturize with olive oil, crisco, coconut oil ext/int vulvar tissues 3. Products Removal of products that contain irritants such as scents/apurva sh chemicals. 4. RTO x 4wks for med check 5. Discussion of obtaining formulary in case we need to switch methods altogether . Possibly considerin g a method such as intrarosa/ Osphena w/ supplement al prometrium , Estring (although need to consider amt of atrophy at introital opening in her case); imvexxy (cost might be an issue here). Time spent in visit is a total of 29 mins with at least 50% of visit consisting of counseling and review of plan of care. Additional precaution kristal measures were taken to minimize potential exposure to the Covid-19 virus during this patient? s visit, including available hand accounts administrator upon arrive, evie e check and being asked a series of screening questions. All staff wore face coverings during this encounter, as well as provided additional cleaning and sanitizing of all surfaces, including countertop s, pens, chairs, door handles, light switches, etc, prior to and following the patient? s visit. [id number] Danielle Fields MD [facility] [address] [address] 07/01/2020 17:30:37 07/01/2020 21:11:41 Disorder of uterine cervix 14810378 N88.9 Malignant neoplasm of urinary bladder 603824303 C67.9 [id number] [facility] [address] [address] 06/17/2021 11:17:03 06/17/2021 12:04:00 Gynecologic examination [id number] Z01.419 Take Calcium with Vitamin D 12-1500mg daily. Do monthly self breast exams. It is advised to get annual flu shot in the fall and she could obtain at [facility] or [facility] (formerly [facility] If you haven't received the Tdap vaccine in the last 10 years you should obtain one as well. Have mammogram yearly, bone density every 2-3 years and colonoscop y every 5-10 years depending on findings and history. Engage in daily exercise of low impact aerobic exercise 45-60 minutes 4-5 times weekly. Avoid tobacco and illicit drugs as well as using moderation with alcohol intake less than 1-2 8 oz beverages daily. This lifestyle behavior pattern will lead to less health conditions and longer life span. If BMI greater than 25 weight watchers or dietary consult advised. Questions have been answered. Patient appears to understand instructio ns, but if you have any further questions call or respond to this email Pap/hpv sent 2020 -wnlSTD Screen declinedGe netic Screen discussedC olon Screen D/C PCP managedDex a Screen Ordered-RF sent Medication but will update her if any changes needed once results scan are here.[facility] UTDMammo due q2yrs per medicaid; order given Postmenopa usal osteopenia [id number] M85.80 On Evista currently. Would like to continue. We agreed to re-evaluat e next year when Dexa due in 2020 but Covid deterred this imaging. We discussed taking holiday from this medication if has been on >5yrs or not making progress with this therapy. Consider bone specialist referral moving forward.Wi ll complete Dexa & update on any med changes Postmenopausal state 764 83188 Z78.0 [id number] Laura Bello [facility] [address] [address] 04/07/2022 10:33:24 04/08/2022 15:27:26 Vaginal wall prolapse 796811937 N81.4 Vaginal wall/uteri ne grade 2-3 lying lithotomy positionTo day we discuss conservati ve measures like Pessary for this issue vs surgical options.Ramesh maldonado would like to be fitted for a pessary & trial this device.If does not work understand s will need MD consult for other options. Will schedule pessary fitting. Time spent in visit is a total of 15 mins with at least 50% of visit consisting of counseling and review of plan of care. [id number] Laura Bello [facility] [address] [address] 04/09/2022 15:07:22 04/09/2022 15:57:52 Anterior vaginal wall prolapse 881121700 N81.4 Today we attempted to fit for a pessary.Th is attempt failed.Vag inal opening is very narrow.Catrachita ble to comfortabl e insert pessary ring with support smallest size #2-3.The part of the device able to be inserted was further inhibited by internal narrowness & continues to pop back out with each attempt.Ramesh maldonado does not have a bladder due to Hx Bladder cancer.Bul ge clearly seen at introital opening when lying and protrudes further in standing position.T his causes her pressure and some discomfort .Since she does not have a bladder I have advised her to first seek visit with our MD Dr. Vallecillo for further recommenda tions based on her situation and her current health issues. Uncertain if will need bid writer or urogyn for this issue. She is in agreement with this plan. Time spent in visit is a total of 15 mins with at least 50% of visit consisting of counseling and review of plan of care. [id number] Amish Vallecillo MD [facility] [address],[place] [address] 04/12/2022 14:39:31 04/12/2022 16:08:49 Prolapse of female genital organs 16060103 N81.9 patient is an 81-year-ol d female who presents for pelvic organ prolapse. She has had a complete cystectomy . The prolapsed area bothers her. Is not bled. It is only recently noticed. She was examined. There is a focal area redundant mucosa in the central portion the anterior vaginal wall protrudes down to the opening of the vagina Or introitus. This is a narrow tongue like projection . Very small pessary was trialed shortly. Was plac ed in the vagina. It created bleeding. It was too large. A very small pessary might be problem possible. We talked about referral possibilit ies. Talked Urogynecol mirella neurology. She is going to contact [facility]. This is a group that removed her bladder. Urogynecol josefinay is within that group. Spent over 20 minutes face-to-fa ce. More than 50% was counseling . She will talk to [facility]. [id number] [facility] [address],[place] [address] 09/02/2022 12:23:08 09/02/2022 12:48:11 Prolapse of female genital organs 46735870 N81.9 See procedure notes.New pessary inserted today. [id number] [facility] [address],[facility] [place] [address] 11/25/2022 10:47:59 11/25/2022 17:00:57 Uterine prolapse 47014685 N81.4 Here today for pessary cleaning x 3mosWill return in 3mos for another cleaning as unable to remove device her self.Will consider every 6mos cleanings after that since removal is so irritation to her thin postmenopa usal skin.Consi elizabeth vaginal estrogen therapy if not contraindi cated moving forward. See procedure notes [id number] Laura Bello [facility] [address] [address] 03/01/2023 09:40:21 03/01/2023 10:34:57 Prolapse of female genital organs 47952656 N81.9 See procedure notes.Pess kristal cleaned & re-inserte d today. 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 Will only use half a tablet each insertion as instructed .F/U x 3mos pessary cleaning Counseled on medication R/B's, Most common side effects, & use. All questions were answered to patient satisfacti on. Time spent in visit is a total of 15 mins with at least 50% of visit consisting of counseling and review of plan of care. [id number] Laura Bello [facility] [address] [address] 05/31/2023 09:36:11 05/31/2023 10:27:40 Prolapse of female genital organs 84320947 N81.9 See procedure notes.Pess kristal cleaned & re-inserte d today. 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 She does have a history of chemothera py and bladder surgery. There also is this tight fitting pessary that has caused abrasions but no apparent erosions. Rectovagin al fistula has to be ruled out. I am going to refer this patient to Colorectal surgery. We spent considerab le time together. I spent more than 20 minutes on this patient's case. There was significan t counseling about fistula, pessary, prolapse. [id number] Kady Artis [facility] [address],[place] [address] 09/19/2023 14:57:33 09/19/2023 17:41:37 Prolapse of female genital organs 33861960 N81.9 83-year-ol d female with Pelvic organ prolapse. 0. ring with support was inserted. She tolerated the procedure well. She will follow-up in 3 months [id number] Amish Vallecillo MD [facility] [address],[place] [address] 12/20/2023 11:12:51 12/20/2023 13:51:19 Postmenopausal bleeding 70997108 N95.0 Prolapse o f female genital organs 74769469 N81.9 This patient is a 83 y/o female who presents for pessary check. She has no complaints with respect to pessary and its performanc e. The pessary was removed and cleaned. The vagina was examined and found to be normal: no ulceration or erosion. The pessary was replaced. The patient agreed to RTC in 3 months. There was an abraded area near or on the cervix that bled briefly after taking out the pessary. No erosion. Patient has been experienci ng vaginal bleeding. She has put on estradiol alone about a year ago. To obtain pelvic ultrasound to evaluate the endometriu m. She just discontinu ed. Estradiol 2 weeks ago. She will follow up after ultrasound . She was evaluated for fistula after foul-smell ing dark vaginal discharge. No fistula was observe. [id number] [facility] [address],[place] [address] 12/21/2023 13:46:48 12/21/2023 15:03:22 Postmenopausal bleeding 69352823 N95.0 [id number] Amish Vallecillo MD [facility] [address],[place] [address] 12/21/2023 14:34:25 12/21/2023 21:52:11 [id number] Amish Vallecillo MD [facility] [address],[place] [address] 01/09/2024 14:46:52 01/09/2024 17:08:33 Prolapse of female genital organs 47982805 N81.9 this patient is an 83-year-ol d female who presents for pessary concerns or pelvic organ prolapse concerns. She has a pessary. She feels something bulging around the pessary. She was examined. The area that is pushing up to the introitus is a small distal rectocele. It appears to be subclinica l and homeless. She will continue to follow this. We will continue to have routine pessary checks. We will check on this Going forward. [id number] Amish Vallecillo MD [facility] [address] [address] 02/28/2024 11:38:36 03/02/2024 08:51:57 Bacterial vaginosis 233380067 N76.0 Prolapse o f female genital organs 26992349 N81.9 this patient is an 83-year-ol d female presents for vaginal infection. She has pessary placed and has excessive vaginal discharge that is foul-smell ing. The pessary was removed. She was examined. To me at this time she appears to have greater anterior vaginal vault prolapse. Feels very thin, the vaginal wall in that area. She should see her urology Dr. as soon as possible. The pessary was replaced. I spent more than 20 minutes on the patient's care total. Health Concerns Section Related Observation LastModified by Organization Detai ls LastModified Time None Recorded Concern Status LastModified by Organization Details LastModified Time None Recorded Advance Directives Directive Y: Payers Encounter Date Sequence Insurance Name Policy Number Policy Encinas Covered Member ID Encinas Member ID Guarantor Name 12/20/2023 1 [employer] (MEDICARE REPLACEMENT PPO) [id number] 1 Nikia Gottlieb Karri [id number] Nikia Gottlieb [place] 12/21/2023 1 [employer] (MEDICARE REPLACEMENT PPO) [id number] Nikia Gottlieb Karri [id number] Nikia Bull [place] 12/21/2023 1 [employer] (MEDICARE REPLACEMENT PPO) [id number] Nikia Gottlieb Karri [id number] Nikia Gottlieb [place] 01/09/2024 1 [employer] (MEDICARE REPLACEMENT PPO) [id number] Nikia Bull Karri [id number] Nikia Gottlieb [place] 02/28/2024 1 [employer] (MEDICARE REPLACEMENT PPO) [id number] 1 Nikia Zeng [id number] Nikia Zeng Notes Date Note Type Note Provider Name and Address Organization Details Recorded Time 12/20/2023 text/html This patient is a 83 y/o female who presents for pessary check. She has no complaints with respect to pessary and its performance. The pessary was removed and cleaned. The vagina was examined and found to be normal: no ulceration or erosion. The pessary was replaced. The patient agreed to RTC in 3 months. There was an abraded area near or on the cervix that bled briefly after taking out the pessary. No erosion. Patient has been experiencing vaginal bleeding. She has put on estradiol alone about a year ago. To obtain pelvic ultrasound to evaluate the endometrium. She just discontinued. Estradiol 2 weeks ago. She will follow up after ultrasound. She was evaluated for fistula after foul-smelling dark vaginal discharge. No fistula was observe. Amish Vallecillo MD [address], [place], [address], [facility] 12/20/2023 13:47:27 01/09/2024 text/html this patient is an 83-year-old female who presents for pessary concerns or pelvic organ prolapse concerns. She has a pessary. She feels something bulging around the pessary. She was examined. The area that is pushing up to the introitus is a small distal rectocele. It appears to be subclinical and homeless. She will continue to follow this. We will continue to have routine pessary checks. We will check on this Going forward. Amish Vallecillo MD [address], [place], [address], [facility] 01/09/2024 17:08:18 02/28/2024 text/html this patient is an 83-year-old female presents for vaginal infection. She has pessary placed and has excessive vaginal discharge that is foul-smelling. The pessary was removed. She was examined. To me at this time she appears to have greater anterior vaginal vault prolapse. Feels very thin, the vaginal wall in that area. She should see her urology Dr. as soon as possible. The pessary was replaced. I spent more than 20 minutes on the patient's care total. Amish Vallecillo MD [address], [place], [address], [facility] 03/01/2024 20:45:32 OBGyn Episode No OBEpisode recorded.
== END 2024-03-16 08:42 | disposition home or self-care (01) ==
PROVIDERS: PCP Nurse Practitioner Family; Visit Provider Internal Medicine Medical Oncology
DX: N13.30 Unspecified hydronephrosis (principal); N26.1 Atrophy of kidney (terminal); C67.9 Malignant neoplasm of bladder, unspecified
CPT/HCPCS: 74176

== ENCOUNTER 2024-05-22 07:16 | Outpatient (CLI) | payer MEDICARE, SELFPAY ==
--- OUTSIDE RECORDS SUMMARY | 2024-05-22 07:21 | XMS_ITS | Data Portability ---
Author Organization [facility], Main Office Address [address] [place] [address] Care Team Providers Care Haul Truck Driver Name Role Phone JONI ELKINS Primary Care Provider JONI ELKINS Referring Provider [phone] Assessment Encounter Date Assessment Date Assessment LastModified [...] with more than half of this in [id number] conversation Not available 04/04/2023 16:35:36 Plan of Treatment Reminders Order Date Submit Date Provider Last Modified By Organization Details Last Modified Time Details Appointments None record ed. Lab None record ed. Referral None record ed. Procedures None record ed. Surgeries None record ed. Imaging XR, knee 024 04/04/19 24 [facility] [place], [address], [place], [address], 4 19:20:15 Medication Orders None record ed. Patient TargetsNo targets recorded. Patient InstructionsNo instructions recorded. Reason for Referral None Reported. Results Created Date Observation Date Name Description Value Unit Range Abnormal Flag Note LastModifiedBy Organization Detail LastModifiedTime 04/04/19 24 XR, knee No observ ation record ed. [facility] [place] [address], [place], [address], 04/04/2023 16:32:28 Result Notes None recorded. Problems Name Problem SNOMED Code Status Onset Date Resolution Date Notes Provider Name and Address Organization Details Recorded Time Adhesive capsulitis of shoulder 559998467 Active Not Available [facility] 3 13:51:39 Pain of right knee joint 6045718989284 00 Active 2023 ABEL Grace [facility] 4 16:04:25 Problem Notes None recorded. Procedures Surgical History Date Name Laterality Status Provider Name and Address Organization Details Recorded Time Appendectomy completed ABEL Grace [facility] [employer] [facility] [employer] 04/04/2023 16:03:31 Bladder completed ABEL Grace [place] [facility] [employer] [facility] [employer] 04/04/2023 16:03:40 Imaging Results Imaging Date Name Status LastModified by Organiz ation Details LastModified Time 04/04/2023 XR, knee completed [facility] [place] [address], [place], [address], 04/04/2023 16:32:28 Procedure Notes None recorded. Medical [...] height Body mass index (BMI) Body weight Provider Name and Address Organization Details Last Updated DateTime 04/04/2023 165.1 cm 24.1 kg/m2 43440.89 g ABEL Grace [facility] 04/04/2023 16:11:10 Social History Question Answer Notes LastModified by Organizat ion Details LastModified Time Tobacco Smoking Status Never Smoker ABEL Grace null, [facility] 04/04/2023 16:03:25 What Is Your Level Of Alcohol Consumption? Occasional [email or web address] Information not available 04/04/2023 Sex: Unknown Functional Status None recorded. Mental Status None recorded. Family History Relationship Description Onset Age of this Age Resolved Age Notes LastModified by Organization Details LastModified Time Father Heart disease [email or web address] Not available 2023 16:03:00 Mother Heart disease Not available 2023 16:03:00 Mother Hypertensive disorder Not available 2023 16:03:13 Medical History Condition Response URINARY/BLADDER/KIDNEY PROBLEMS Y CANCER: SPECIFY Y Gynecological HistoryNo gynecological history recorded. Obstetrics History GPAL:G 0 P 0 0 0 0 Past Encounters Encounter ID Performer Location Encounter Start Date Encounter Closed Date Diagnosis/Indication Diagnosis SNOMED-CT Code Diagnosis ICD10 Code Diagnosis Note [id number] Jose Maria Neves MD [facility] [place] [address] [place] [address] 04/04/2023 15:40:23 04/04/2023 16:38:04 Pain of right knee joint 1161347308 78553 M25.561 Health Concerns Section Related Observation LastModified by Organization Detai ls LastModified Time None Recorded Concern Status LastModified by Organization Details LastModified Time None Recorded Advance Directives Directive None Recorded Payers Encounter Date Sequence Insurance Name Policy Number Policy Encinas Covered Member ID Encinas Member ID Guarantor Name 04/04/2023 1 [employer] (MEDICARE REPLACEMENT PPO) [id number] 1 Nikia Zeng [id number] Nikia Zeng OBGyn Episode No OBEpisode recorded.
--- OUTSIDE RECORDS SUMMARY | 2024-05-22 07:21 | XMS_ITS ---
Author Organization [facility] Address [address] [place] [address] Care Team Providers Care Medicaid Eligibility Specialist Name Role Phone Kyler Diop DO Unavailable [phone] Adan Andrew MD Unavailable [phone] Cyrus Schwartz DO Primary Care Provider [phone] Active Problems Problem Noted Date Diagnosed Date 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 Malignant neoplasm of urinary bladder 07/18/2020 Cancer Staging:Clinical stage from 07/18/2020:Stage II(cT2, cN0, cM0) - Signed by Kyler Diop DO on 07/20/2020 Pathologic stage from 12/05/2020: ypT0, pN0, cM0 - Signed by Kyler Diop DO on 12/07/2020 Orthostatic hypotension Anemia Current Treatment and Therapy Plans No current plan information found. Past Treatment and Therapy Plans Line Care Plan Name Start Date [...]
--- OUTSIDE RECORDS SUMMARY | 2024-05-22 07:21 | XMS_ITS | Continuity of Care Document ---
Author Organization [facility] Address [address] [place] [address] [address] [place] [address] Phone Care Team Providers Care Molecular Physicist Name Role Phone Hillman OD, Hussain Unavailable Unavailable Advance Directives Directive Yes / No Effective Date File Name No Information Encounters Encounter Description Practice Location Reason(s) For Visit Diagnoses Date Provider Providers Copied on Encounter [facility], [id number] [place] [address] [address], [place], [place], [id number], [place] tel:[phone] [facility] No Information Mar-2 3-200 6 Hillman OD Hussain. [address] , [address], [place], [address], [place]. tel:[phone] Family History Family Member Type Diagnosis Age At Onset No Information Payers Payer name Insurance type Covered republican ID Authoriza tion(s) [employer] SOI CI [id number] Social History Type Description Quantity Date Captured [...]
--- OUTSIDE RECORDS SUMMARY | 2024-05-22 07:21 | XMS_ITS | Referral Summary ---
Author Organization [facility] Address [address] [place] [id number] Care Team Providers Care Lodging Facilities Attendant Name Role Phone Kyler Diop DO Unavailable Adan Andrew MD Unavailable [phone] Cyrus Schwartz DO Primary Care Provider Encounters Date Type Department Care Team Description 03/27/2024 Telephone [facility] [address] [place] [address] [address] [place] [address] Dilma Coppola 03/26/2024 Telephone [facility] [address] [place] [address] [address] [place] [address] Madeline Vega CMA 03/23/2024 Orders Only [facility] [address] [place] [address] [address] [place] [address] Carola Alarcon RN Malignant neoplasm of urinary bladder, unspecified site (HCC) (Primary Dx) 03/22/2024 4:15 PM [facility] Telemedicine [facility] [address] [place] [address] [address] [place] [address] Kyler Diop DO Malignant neoplasm of urinary bladder, unspecified site (HCC) (Primary Dx) 03/19/2024 Orders Only [facility] [address] [place] [address] [address] [place] [address] ProviderLor MD from Last 3 Months Allergies Active Allergy Reactions Criticality Noted Date Comments Lactose Diarrhea Low 11/06/2020 Sulfa (Sulfonamide Antibiotics) Hives Medium 05/2020 Childhood reaction Medications cholecalciferol (VITAMIN D-3) 2000 unit capsule Take 2,000 Units by mouth daily Active raloxifene (EVISTA) 60 mg tablet Take 60 mg by mouth daily 1 Active acetaminophen (TYLENOL) 325 mg tablet Take [...] total) by mouth daily 90 tablet 3 5 Active Bystolic 5 mg tablet Take 5 [...] DO on 12/07/2020 Orthostatic hypotension Anemia Immunizations Immunization Administration Dates Next Due Influenza, Quadrivalent, Hig [...] more drinks on one occasion? Never 11/17/2020 Comments Unknown Sex and Gender Information Value [...] Comments Blood Pressure 131/75 04/23/2022 8:31 AM [facility]PUT[facility]ERIFF Pulse 104 04/23/2022 8:31 AM [facility]PUT[facility]ERIFF Temperature 36.7 C (98 F) 04/23/2022 8:31 AM DEPUT[facility]ERIFF Respiratory Rate 18 04/23/2022 8:31 AM DEPUTY SHERIFF Oxygen Saturation 94% 04/23/2022 8:31 AM DEPUT[facility] SHERIFF Inhaled Oxygen Concentration - - Weight 66.5 kg (146 lb 9.7 oz) 04/23/2022 8:31 AM [facility]PUT[facility]ERIFF Height 165.1 cm (5' 5 ) 04/23/2022 8:31 AM DEPUT[facility]ERIFF Body Mass Index 24.4 04/23/2022 8:31 AM DEPUT[facility] SHERIFF Plan of Treatment Not on file Medical Devices Implanted Type Area Burner Shaft Device Identifier Shelf Expiration Date Model / Serial / Lot PowerMessage Raymond 160-210 7fr 80cm Open Tip Luer Lock Adapter [employer] Graduate Straight Latex Free - [id number] Implanted:Qty: 2 on 11/17/2020 by Adan Andrew MD at [facility] Bilateral: Ureter [employer] Raymond 07/17/2024 160-210 / / [id number] Procedures Procedure Name Priority Date/Time Associated Diagnosis Comments CT ABDOMEN PELVIS W CONTRAST Schedule Routine, Read Routine (OP Routine) 03/16/2024 9:05 AM DEPUTY SHERIFF from Last 3 Months Results * CT Abdomen Pelvis W Contrast (03/16/2024 9:05 AM DEPUT[facility] SHERIFF) Anatomical Region Laterality Modality Body N/A Computed Tomogra phy us Historical Provider MD WHITE CT PROCEDURES Final R esult from Last 3 Months Insurance UHC MEDICARE ADVANTAGE [facility] MEDICARE Address: [address] [address] [facility] MEDICARE [facility] MEDICARE ADVANTAGE Advance Directives For more information, please contact: [phone] Documents on File Type Date Recorded Patient Raimann Machine Operator Expl anation Power of Computer Tape Librarian 11/17/2020 5:38 AM * Full Code (Latest Code Status on File) Date Activated Date Inactivated Comments 11/17/2020 5:11 PM 11/22/2020 6:17 PM Care Teams Lodging Facilities Attendant Relationship Specialty [place] [id number] [place] [address] PCP - General Internal Medicine 09/25/21 Kyler Diop DO [address] [place] [address] MEDICAL ONCOLOGY, [facility] [address] [place] [address] Medical Oncologist/Stove Polisher Hematology and Oncology 08/19/20 [place] [address] [place] [address] Consulting Physician Urology 11/22/20
--- OUTSIDE RECORDS SUMMARY | 2024-05-22 07:21 | XMS_ITS | Data Portability ---
Author Organization [facility] Address [address] [place] [address] [place] [address] Care Team Providers Care Cap Sizer Name Role Phone RAHUL GUAJARDO Primary Care Provider [phone] JONI ELKINS Primary Care Provider [phone] Assessment No assessment recorded. Plan of Treatment Reminders Order Date Submit Date Provider Last Modified By Organization Details Last Modified Time Details Appointments PESSARY 2024 10:30A Claribel VALLECILLO MD Not available Not available Not available Lab None recorded. Referral None recorded. Procedures None recorded. Surgeries None recorded. Imaging US, pelvis 2023 024 [email or web address] [place], [address], [place], [address], 12/21/2023 21:46:41 US, transvagi nal 2023 024 [email or web address] [place], [address], [place], [address], 12/21/2023 21:46:41 Medication Orders clindamyc in 2 % vaginal cream 2024 025 [employer] [facility] #[id number], [address], [place], [place], [id number], 02/28/2024 22:32:04 Patient TargetsNo targets recorded. Patient InstructionsNo instructions recorded. Reason for Referral None Reported. Results Created Date Observation Date Name Description Value Unit Range Abnormal Flag Note LastModifiedBy Organization Detail LastModifiedTime 12/21/19 24 12/21/2023 US, pelvi s No observ ation record ed. [facility] [address], [place], [address], 12/21/2023 17:27:52 12/21/19 24 12/21/2023 US, trans vagin al No observ ation record ed. [facility] [address], [place], [address], 12/21/2023 17:28:03 12/21/19 24 12/21/2023 US, pelvi s No observ ation record ed. [email or web address] [address], [place], [address], 12/21/2023 21:46:32 03/06/19 25 03/06/2024 MAMMO , scree tomeka, bilat eral No observ ation record ed. CINTHIA [facility] [address], [place], [address], 03/07/2024 11:51:33 Result Notes None recorded. Problems Name Problem SNOMED Code Status Onset Date Resolution Date Notes Provider Name and Address Organization Details Recorded Time Screenin g for malignan t neoplasm of rectum Completed 201807/01/2020 Encounte r for screenin g for malignan t neoplasm of rectum;P ractice ID: 0001 Danielle Fields MD [address], [place], [address], [facility] 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 17:43:44 Evaluati on finding Completed 201807/01/2020 Hematuri a, unspecif ied;Prac salvador ID: 0001 Danielle Fields MD [address], [place], [address], [facility] 1 17:43:[address] Concept Completed 201707/01/2020 Encounte r for general adult medical exam w abnormal findings ;Practic e ID: 0001 Danielle Fields MD [address], [place], [address], [facility] 1 17:43:33 Adult health examinat ion Completed 201307/01/2020 Routine general medical examinat ion at a health care facility ;Practic e ID: 0001 Danielle Fields MD [address], [place], [address], [facility] 1 17:43:23 Microsco pic hematuri a [id number] Completed 201306/16/2021 HEMATURI A MICROSCO PIC;Prac salvador ID: 0001 Suad martel, [facility] 2 14:21:10 Screenin g for malignan t neoplasm of cervix Completed 201107/01/2020 Pap Smear;Pr actice ID: 0001 Danielle Fields MD [address], [place], [address], [facility] 1 17:43:37 Speciali zed medical examinat ion Completed 201107/01/2020 Routine gynecolo gical examinat ion;Prac salvador ID: 0001 Danielle Fields MD [address], [place], [address], [facility] 1 17:43:46 Disorder of bone and articula r cartilag e [id number] Completed 201106/16/2021 Osteopen ia;Pract ice ID: 0001 Suad Aguirre [facility] 2 14:21:10 Blood leukocyt e number above referenc e range [id number] Completed 201507/01/2020 Elevated white blood cell count, unspecif ied;Baron rded Elsewher e: No Locat ion: [facility] S ource: EHR Window Treatment Installer rashmi: N Practi ce ID: 0001 Sampson lable Time: 08:30:00 AM Danielle Fields MD [address], [place], [address], [facility] 1 17:43:30 Hyperten sive disorder [id number] Completed 201806/16/2021 HTN;Baron rded Elsewher e: No Locat ion: [facility] S ource: EHR Window Treatment Installer rashmi: N Practi ce ID: 0001 Sampson lable Time: 10:30:00 AM Suad Aguirre [facility], [facility] 2 14:21:10 Vaginiti s and vulvovag initis Completed 201307/01/2020 Vaginiti s and vulvovag initis, unspecif ied;Prac salvador ID: 0001 Danielle Fields MD [address], [place], [address], [facility] 17:43:[address] Concept Completed 201807/01/2020 Encntr for general adult medical exam w/o abnormal findings ;Recorde d Elsewher e: No Locat ion: [facility] S ource: EHR Window Treatment Installer rashmi: N Practi ce ID: 0001 Sampson lable Time: 10:30:00 AM Danielle Fields MD [address], [place], [address], [facility] 1 17:43:42 Uterine prolapse 16256544 Active 2022 Vaginal wall/nulato rine prolapse PRESTON [facility]- [address], [place], [address], [facility] 15:48:57 Problem Notes None recorded. Procedures Surgical History Date Name Laterality Status Provider Name and Address Organization Details Recorded Time 03/21/19 25 Pessary Insertion completed Amish Vallecillo MD [address], [place], [address], [facility] 03/21/2024 16:14:01 09/19/19 24 Pessary Insertion completed Amish Vallecillo MD [address], [place], [address], [facility] 09/19/2023 16:13:11 05/31/19 24 Pessary Insertion completed Laura Bello [facility] [address], [place], [address], [facility] 05/31/2023 10:15:16 03/01/19 24 Pessary Insertion completed Laura Bello [facility] [address], [place], [address], [facility] 03/01/2023 10:29:04 11/26/19 23 Pessary Insertion completed Laura Bello [facility] [address], [place], [address], [facility] 11/25/2022 17:00:25 09/03/19 23 Pessary Insertion completed Laura Bello [facility] [address], [place], [address], [facility] 09/02/2022 12:44:23 12/23/19 22 Date of Last Mammogram completed Toma Carson [facility] 11/25/2022 11:02:32 11/24/19 22 Most Recent Bone Density completed Toma Carson [facility] 11/25/2022 11:02:36 11/18/19 21 completed [facility] 06/17/2021 11:32:51 11/18/19 21 Partial Hysterectomy completed [facility] 09/19/2023 15:47:48 07/03/19 21 Date of Last Pap Smear completed [facility] 06/17/2021 11:38:58 02/14/19 18 appendectomy completed [facility] 09/19/2023 15:46:49 02/14/19 08 Date of Last Colonoscopy completed [facility] 09/19/2023 15:46:26 02/14/19 08 Colonoscopy completed [facility] 06/16/2021 17:29:25 02/14/19 07 procedure on patella completed [facility] 09/19/2023 15:47:20 Imaging Results Imaging Date Name Status LastModified by Organization Details LastModified Time 12/21/2023 US, pelvis completed carlos Gavin [address], [place], [address], 12/21/2023 17:27:52 12/21/2023 US, transvaginal completed carlos maldonado [address], [place], [address], 12/21/2023 17:28:03 12/21/2023 US, pelvis completed [email or web address] [address], [place], [address], 12/21/2023 21:46:32 03/06/2024 MAMMO, screening, bilateral completed CINTHIA [facility] [address] [address], [place], [address], 03/07/2024 11:51:33 Procedure Notes None recorded. Medical Equipment None Reported. Allergies Allergen ID Allergen Name Allergen Category Reaction Reaction Severity Criticality Documentation Date Start Date Code Code System Note Provider Name and Address Organization Details Recorded Time 21123 sulfameth oxazole medicatio n Not available Not available Not available 02/01/2020 08909 RxNorm Comme nt: [facility]at [facility]; [facility] Available [facility] 14:14:53 2255 Substance with sulfonami de structure and antibacte rial mechanism of action (substanc e) medicatio n Not available Not available Not available 11/19/2019 55874 8003 SNOMED Kimberly martel, [facility] 0 12:17:48 2256 trimethop rim medicatio n Not available Not available Not available 11/19/2019 29797 RxNorm Kimberly martel, [facility] 0 12:17:54 Medications Name Sig Start [...] Prescrib ed Elsewher e: No Locat ion: [facility] odify By: tyrauhl E ncounter DateTime : 01/10/20 11 06:00:32 PM [...] Elsewher e: No Locat ion: Blair maldonado [facility] odify By: amkuhl Joel ncounter DateTime : 10/02/19 14 03:00:58 PM Not [...] ed Elsewher e: Yes Loca tion: Blair joel [facility] odify By: everette Maldonado ncounter DateTime : 03/11/19 12 09:45:00 AM Not Available Not Available Not Available buspirone 7.5 mg tablet Take 1 tablet twice a day by oral route. 11/25 completed Not Available Not Available Not Available raloxifen e 60 mg tablet TAKE 1 TABLET BY MOUTH EVERY DAY 2024 active Not Available Not Available Not Avai lable folic acid 1 mg tablet active Not [...] mcg (50,000 unit) capsule take 1 capsule (88739EZ ITS) by oral route every week 04/12 completed Prescrib ed Elsewher e: No Locat ion: Blair maldonado [facility] odify By: tor Maldonado ncounter DateTime : 09/29/19 14 09:57:15 AM Not Available Not Available Not Available Stanback Headache Powder 650 mg oral packet 04/07 completed Prescrib ed Elsewher e: Yes Loca tion: Blair maldonado [facility] odify By: everette ruthuntkarina DateTime : 03/11/19 12 09:45:00 AM Not [...] Elsewher e: Yes Loca tion: Blair maldonado [facility] odify By: everette ruthuntkarina DateTime : 03/11/19 12 09:45:00 AM Not [...] ed Elsewher e: Yes Loca tion: [facility] odify By: everette ruthkarina DateTime : 03/11/19 12 09:45:00 AM Not Available Not Available Not Available B Complex 1.7 mg-20 mg-2 mg-1.2 mg/mL sublingua l liquid active Prescrib ed Elsewher e: Yes Loca tion: Blair maldonado [facility] odify By: everette menjivar DateTime : 03/11/19 12 09:45:00 AM Not Available Not Available Not Available Bystolic 2.5 mg tablet take 2 tablet by oral route every day 06/17 completed Prescrib ed Elsewher e: Yes Loca tion: Blair maldonado [facility] odify By: tor menjivar DateTime : [...] completed Not Available Not Available Not Available [place] 3 Fish Oil 684 mg-1,200 mg capsule,d elayed release 06/17 completed Prescrib ed Elsewher e: Yes Loca tion: Blair maldonado [facility] odify By: everette menjivar DateTime : 03/11/19 12 09:45:00 AM Not Available Not Available Not Available glucosami ne-chondr oitin 500 mg-400 mg-66 mg-3 mg capsule 04/07 completed Prescrib ed Elsewher e: Yes Loca tion: Blair maldonado [facility] odify By: tor menjivar DateTime : 08/30/19 19 10:30:00 AM Not Available Not Available Not Available Probiotic 3 billion cell capsule 04/07 completed Prescrib ed Elsewher e: Yes [facility]: tor menjivar DateTime : [...] Updated DateTime 01/09/2024 165.1 cm 25.5 kg/m2 11090.63 g 144 mm[Hg] 79 mm[Hg] [facility] 4 15:14:08 Date Recorded Body height Body mass index (BMI) Body weight Systolic blood pressure Diastolic blood pressure Provider Name and Address Organization Details Last Updated DateTime 02/28/2024 165.1 cm 25.1 kg/m2 59300.45 g 146 mm[Hg] 83 mm[Hg] [facility] 12:01:31 Date Recorded Body height Body mass index (BMI) Body weight Systolic blood pressure Diastolic blood pressure Provider Name and Address Organization Details Last Updated DateTime 03/21/2024 165.1 cm 25 kg/m2 32418.86 g 130 mm[Hg] 84 mm[Hg] [facility] 5 14:55:35 Social History Question Answer Notes LastModified by Organizat ion Details LastModified Time Tobacco Smoking Status Never Smoker [facility] 09/02/2022 12:24:30 Do You Have An [...] Or The Highest Degree You Have Received? AZ86086-6 Information not available 06/17/2021 What Is Your [...] Anxious, Or Unable To Sleep At Night)? [id number] [email or web address] Information not available 09/19/2023 Do You Use Any Illicit Or Recreational Drugs? No Information not available 06/16/2021 Do You Use Sunscreen Routinely? Yes [email or web address] Information not available 09/19/2023 Has Tobacco Cessation Counseling Been Provided? No [email or web address] Information not available 09/19/2023 Have You Used IV Drugs? No Information not available 06/17/2021 Do You Or Have You Ever Used Any Other Forms Of Tobacco Or Nicotine? No Information not available 09/19/2023 Sex: Unknown Functional [...] available 2019 12:18:21 Mother Coronary arterioscler osis [email or web address] Not available 06/2024 14:47:33 Father Coronary arterioscler osis [email or web address] Not available 06/2024 14:47:33 Paternal Aunt Malignant tumor of breast Not available 2021 11:41:50 Medical History Condition Response Allergies (Food, seasonal, environmental ) N Other N Breast Cancer N Drug/Latex Allergies/Reactions N Blood Transfusion N Dermatologic Disorders N Lung Disease N Defects or Inherited Disease N Breast Problem N Gestational Diabetes N Hematologic disorders N Anesthesia Complications N History of STI N Deep Vein Thrombosis N Polycystic ovary syndrome N Anxiety Disorder Y Autoimmune disease N Arthritis N Infertility N Polyps N Acid Reflux (GERD) Y History of abnormal pap N Cancer N Stroke N Varicosities N Neurologic/Epilepsy N Endometriosis N High Cholesterol N Headaches N Fibromyalgia N Kidney Disease N Heart Problems N Kidney or Bladder Problems Y Thyroid Problems N GI Problems N Eating Disorder N Anemia [...] SNOMED-CT Code Diagnosis ICD10 Code Diagnosis Note [id number] Laura Bello [facility] [address],[place] [address] 11/19/2019 12:15:22 11/19/2019 12:53:35 Vaginal dryness 20900254 N89.8 Doing well on Premarin & would like to continue. Time spent in visit is a total of 26 mins with at least 50% of visit consisting of counseling and review of plan of care. Postmenopa usal osteopenia 938890452 M85.80 On Evista currently. Would like to continue. We agreed to re-evaluat e next year when Dexa due in 2020. We discussed taking holiday from this medication if has been on >5yrs or not making progress with this therapy. Consider bone specialist referral moving forward. [employer] 2019 [place]. [id number] Laura Bello [facility] [address],[place] [address] 03/25/2020 14:06:42 03/25/2020 15:42:03 Atrophic vaginitis 13157436 N95.2 After much discussion , we realized [...] exposure to the Covid-19 virus during this patient s visit, including available hand senior consumer insights consultant upon arrive, temperatur e check and being asked a series of screening questions. All staff wore face coverings during this encounter, as well as provided additional cleaning and sanitizing of all surfaces, including countertop s, pens, chairs, door handles, light switches, etc, prior to and following the patient s visit. [id number] Danielle Fields MD [place] [address],[place] [address] 07/01/2020 17:30:37 07/01/2020 21:11:41 Disorder of uterine cervix 32222906 N88.9 Malignant neoplasm of urinary bladder 511724909 C67.9 [id number] Laura Bello , [facility] [address],[place] [address] 06/17/2021 11:17:03 06/17/2021 12:04:00 Gynecologic examination 87159270 Z01.419 Take Calcium with Vitamin D 12-1500mg daily. Do monthly self breast exams. It is advised to get annual flu shot in the fall and she could obtain at [facility] or [facility] clinic. If you haven't received the Tdap vaccine [...] per medicaid; order given Postmenopa usal osteopenia 077734672 M85.80 On Evista currently. Would like to continue. We agreed to re-evaluat e next year when Dexa due in 2020 but Covid deterred this imaging. We discussed taking holiday from this medication if has been on >5yrs or not making progress with this therapy. Consider bone specialist referral moving forward.Wi ll complete Dexa & update on any med changes Postmenopausal state 764 53556 Z78.0 [id number] Laura Bello [facility] [address],[place] [address] 04/07/2022 10:33:24 04/08/2022 15:27:26 Vaginal wall prolapse 565746375 N81.4 Vaginal wall/uteri ne grade 2-3 lying [...] counseling and review of plan of care. [id number] [facility] [address] [address] 04/09/2022 15:07:22 04/09/2022 15:57:52 Anterior vaginal wall prolapse 136058501 N81.4 Today we attempted to fit for [...] current health issues. 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 She is in agreement with this plan. Time spent in visit is a total of 15 mins with at least 50% of visit consisting of counseling and review of plan of care. [id number] Amish Vallecillo MD [place] [address] [address] 04/12/2022 14:39:31 04/12/2022 16:08:49 Prolapse of female genital organs 57601073 N81.9 patient is an 81-year-ol d female [...] We talked about referral possibilit ies. Talked Urogynecokim vu neurology. She is going to contact [facility]. This is a group that removed her bladder. Urogynecol josefinay is within that group. Spent over 20 minutes face-to-fa ce. More than 50% was counseling . She will talk to [facility]. [id number] Laura Bello [facility] [address],[place] [address] 09/02/2022 12:23:08 09/02/2022 12:48:11 Prolapse of female genital organs 49731411 N81.9 See procedure notes.New pessary inserted today. [id number] [facility] [address],[place] [address] 11/25/2022 10:47:59 11/25/2022 17:00:57 Uterine prolapse 19407175 N81.4 Here today for pessary cleaning x 3mosWill return in 3mos for another cleaning as unable to remove device her self.Will consider every 6mos cleanings after that since removal is so irritation to her thin postmenopa usal skin.Consi elizabeth vaginal estrogen therapy if not contraindi cated moving forward. See procedure notes [id number] Laura Bello [facility] [address],[place] [address] 03/01/2023 09:40:21 03/01/2023 10:34:57 Prolapse of female genital organs 43004947 N81.9 See procedure notes.Pess kristal cleaned & re-inserte d today. Atrophy of vagina 253302 009 N95.2 Change in medication for vaginal [...] counseling and review of plan of care. [id number] Laura Bello [facility] [address],[place] [address] 05/31/2023 09:36:11 05/31/2023 10:27:40 Prolapse of female genital organs 89946475 N81.9 See procedure notes.Pess kristal cleaned & re-inserte d today. Atrophy of vagina 891049 009 N95.2 Change in medication for vaginal atrophy and is doing significan t better with this switch.Ski n looks significan tly improved on exam today.We agreed to continue.R F sent to pharmacy x 6mos Amish Vallecillo MD [place] [address],[place] [address] 08/15/2023 12:29:03 08/15/2023 14:39:36 Rectovaginal fistula 44283150 N82.3 I believe there is a rectovagin [...] about fistula, pessary, prolapse. [id number] Kady Artis [place] [address],[place] [address] 09/19/2023 14:57:33 09/19/2023 17:41:37 Prolapse of female genital organs 85780604 N81.9 83-year-ol d female with Pelvic organ prolapse. 0. ring with support was inserted. She tolerated the procedure well. She will follow-up in 3 months [id number] Amish Vallecillo MD [place] [address],[place] [address] 12/20/2023 11:12:51 12/20/2023 13:51:19 Postmenopausal bleeding 85474676 N95.0 Prolapse o f female genital organs 54052655 N81.9 This patient is a 83 y/o [...] dark vaginal discharge. No fistula was observe. [id number] Fiordaliza Aguirre [place] [address],[place] [address] 12/21/2023 13:46:48 12/21/2023 15:03:22 Postmenopausal bleeding 21785388 N95.0 [id number] Amish Vallecillo MD [place] [address],[place] [address] 12/21/2023 14:34:25 12/21/2023 21:52:11 [id number] Amish Valleclilo MD [place] [address],[place] [address] 01/09/2024 14:46:52 01/09/2024 17:08:33 Prolapse of female genital organs 49292624 N81.9 this patient is an 83-year-ol d [...] We will check on this Going forward. [id number] Amish Vallecillo MD [place] [address],[place] [address] 02/28/2024 11:38:36 03/02/2024 08:51:57 Bacterial vaginosis 228359185 N76.0 Prolapse o f female genital organs 23101086 N81.9 this patient is an 83-year-ol d [...] 20 minutes on the patient's care total. [id number] Amish Vallecillo MD [place] [address],[place] [address] 03/21/2024 14:47:11 03/21/2024 16:23:49 Prolapse of female genital organs 74498725 N81.9 34-year-ol d female presents for follow-up on ovarian cyst. She had a follow-up ultrasound . We shared those images. We discussed the significan ce of the findings. She had a 4 cm hemorrhagi c cyst. This is persistent from a previously seen cyst on a CT scan. It has become slightly smaller in size. We talked about ovarian cyst, etiology, natural history, treatment thereof. We agreed to observe her cyst. She has no pain at this time. She is given precaution s on ovarian torsion. I spent over 25 minutes on this patient's care in total. patient to follow up in 2 months. Health Concerns Section Related Observation LastModified by Organization Detai ls LastModified Time None Recorded Concern Status LastModified by Organization Details LastModified Time None Recorded Advance Directives Directive Y: Payers Encounter Date Sequence Insurance Name Policy Number Policy Encinas Covered Member ID Encinas Member ID Guarantor Name 12/21/2023 1 [employer] (MEDICARE REPLACEMENT PPO) [id number] 1 Nikia Bull Karri [id number] Nikia Zeng 12/21/2023 1 [employer] (MEDICARE REPLACEMENT PPO) [id number] 1 Nikia Bull Karri [id number] Nikia Bull Zeng 01/09/2024 1 [employer] (MEDICARE REPLACEMENT PPO) [id number] Nikia Bull Karri [id number] Nikia Zeng 02/28/2024 1 [employer] (MEDICARE REPLACEMENT PPO) [id number] Nikia Bull Karri [id number] Nikia Bull Zeng 03/21/2024 1 [employer] (MEDICARE REPLACEMENT PPO) [id number] Nikia Bull Karri [id number] Nikia Bull Karri Notes Date Note Type Note Provider Name and Address Organization Details Recorded Time 01/09/2024 text/html this patient is an 83-year-old [...] forward. Amish Vallecillo MD [address], [place], [address], [facility] [place] 01/09/2024 17:08:18 02/28/2024 text/html this patient [...] total. Amish Vallecillo MD [address], [place], [address], [facility] 03/01/2024 20:45:32 03/21/2024 text/html 83-year-old fema le with pelvic organ prolapse. She has had her bladder removed. She has some type of conduit. Her anterior vaginal wall feels very thin. Her prolapse was poorly treated with her pessary. Urogynecology ordered a new pessary. I placed this pessary today. Amish Vallecillo MD [address], [place], [address], [facility] 03/21/2024 16:15:34 OBGyn Episode No OBEpisode recorded.
--- OUTSIDE RECORDS SUMMARY | 2024-05-22 07:21 | XMS_ITS | Clinical Summary ---
Author Organization [facility] Address [address] [place] [address] Care Team Providers Care Gusset Maker Name Role Phone Dante Franklin MD Primary Care Provider [phone] Source Comments [facility],non-owned Affiliates and Associated Physician Practices is amultiple site organization consisting of ambulatory clinics and hospital sitesin [place], [place], [place] and [place]. This disclosure is being madepursuant to the Care Everywhere program and may not contain all information available regarding this patient. Last updated 17.[facility] Allergies Active Allergy Reactions Criticality Noted Date [...] (one) tablet by mouth once daily Active [place]-3 Fatty Acids (KP Fish Oil) 1200 MG [...] 115 11/03/2023 10:06 AM CDT Temperature 36.1 C (97 F) 11/03/2023 10:06 AM CDT Respiratory Rate 18 [...] 2, 01/14/2021 DEPRESSION SCREENING 02/15/2024 MEDICARE AWV CALENDAR YEAR 2024 HEPATITIS B VACCINE Aged Out No longe r eligible based on patient's age to complete this topic HIB VACCINE Aged Out No longer eligi ble based on patient's age to complete this topic HPV VACCINE Aged Out No longer eligi ble based on patient's age to complete this topic MENINGOCOCCAL (Group B) VACCINE SHARED DECISION-MAKING Aged Out No longer eligible based on patient's age to complete this topic MENINGOCOCCAL GROUPS A/C/Y/W VACCINE Aged Out No longer eligible b ased on patient's age to complete this topic Care Teams Gusset Maker Relationship Specialty Start Date End Date Dante Franklin MD [address] [place] [address] PCP - General 08/08/20
--- OUTSIDE RECORDS SUMMARY | 2024-05-22 07:22 | XMS_ITS | Clinical Summary ---
Author Organization [facility] Address [address] [place] [phone] Care Team Providers Care Air Antisubmarine Officer Name Role Phone Kyler Diop DO Unavailable [phone] Adan Andrew MD Unavailable [phone] Cyrus Schwartz DO Primary Care Provider [phone] Allergies Active Allergy Reactions Criticality Noted Date [...] Diop DO on 12/07/2020 Orthostatic hypotension Anemia Encounters Date Type Department Care Team Description 03/27/2024 Telephone [facility] Oncology [address] [place] [address] [address] [place] [phone] Dilma Coppola 03/26/2024 Telephone [facility] Oncology [address] [place] [address] [address] [place] [phone] Madeline Vega CMA 03/23/2024 Orders Only [facility] Oncology [address] [place] [address] [address] [place] [address] Carola Alarcon RN Malignant neoplasm of urinary bladder, unspecified site (HCC) (Primary Dx) 03/22/2024 4:15 PM INSPECTOR SET UP AND LAY OUT Telemedicine [facility] Oncology [address] [place] [address] [address] [place] [phone] Chikis, Kyler L., DO Malignant neoplasm of urinary bladder, unspecified site (HCC) (Primary Dx) 03/19/2024 Orders Only [facility] Oncology [address] [place] [address] Provider, MD Lor from Last 3 Months Immunizations Immunization Administration Dates Next Due Influenza, [...] Comments Blood Pressure 131/75 04/23/2022 8:31 AM INSPECTOR SET UP AND LAY OUT Pulse 104 04/23/2022 8:31 AM INSPECTOR SET UP AND LAY OUT Temperature 36.7 C (98 F) 04/23/2022 8:31 AM INSPECTOR SET UP AND LAY OUT Respiratory Rate 18 04/23/2022 8:31 AM INSPECTOR SET UP AND LAY OUT Oxygen Saturation 94% 04/23/2022 8:31 AM INSPECTOR SET UP AND LAY OUT Inhaled Oxygen Concentration - - Weight 66.5 kg (146 lb 9.7 oz) 04/23/2022 8:31 A M INSPECTOR SET UP AND LAY OUT Height 165.1 cm (5' 5 ) 04/23/2022 8:31 AM INSPECTOR SET UP AND LAY OUT Body Mass Index 24.4 04/23/2022 8:31 AM INSPECTOR SET UP AND LAY OUT Plan of Treatment Health Maintenance Due Date Last Done Comments Depression Screening 1940 Osteoporosis Screening-Bone Density Scan 1940 DTaP/Tdap/Td Vaccine (1 - Tdap) 1952 Hepatitis B Screening 06/22/1959 Pneumococcal vaccine 65+ (1 of 1 - PCV) 06/22/1991 Well Visit 65+ 2006 Fall Risk Assessment 11/22/2021 11/22/2020 Covid-19 Vaccine ( season) 2023 01/14/2021, 05/05/2020, 04/03/2020 Influenza Vaccine (Season Ended) 2024 11/30/2021, 01/14/2021, 11/19/2019 Zoster Vaccine Completed 02/01/2020, 11/19/2019 Medical Devices Implanted Type Area Bottom Hoop Driver Device Identifier Shelf Expiration Date Model / Serial / Lot [employer] [place] 160-210 7fr 80cm Open Tip Luer Lock Adapter [employer] Graduate Straight Latex Free - [id number] Implanted:Qty: 2 on 11/17/2020 by Adan Andrew MD at [facility] Bilateral: Ureter [employer] 07/17/2024 160-210 / / [id number] Procedures Procedure Name Priority Date/Time Associated Diagnosis Comments CT ABDOMEN PELVIS W CONTRAST Schedule Routine, Read Routine (OP Routine) 03/16/2024 9:05 AM INSPECTOR SET UP AND LAY OUT from Last 3 Months Results * CT Abdomen Pelvis W Contrast (03/16/2024 9:05 AM INSPECTOR SET UP AND LAY OUT) Anatomical Region Laterality Modality Body N/A Computed Tomogra phy us Historical Provider MD WHITE CT PROCEDURES Final R esult from Last 3 Months Insurance [facility] Address: [address] [address] [place] [address] [employer] MEDICARE [facility]IC[facility] Address: [address] [address] [place] [address] Advance Directives For more information, please contact: [phone] Documents on File Type Date Recorded Patient Time Signal Wirer Expl anation Power of Facility Designer 11/17/2020 5:38 AM * Full Code (Latest Code Status on File) Date Activated Date Inactivated Comments 11/17/2020 5:11 PM 11/22/2020 6:17 PM Care Teams Air Antisubmarine Officer Relationship Specialty [place] [id number] [place] [id number] PCP - General Internal Medicine 09/25/21 Kyler Diop DO [address] [place] [address] MEDICAL ONCOLOGY, [address] [address] Medical Oncologist/Movie Actor Hematology and Oncology 08/19/20 [place] [address] [place] [address] Consulting Physician Urology 11/22/20
--- OUTSIDE RECORDS SUMMARY | 2024-05-22 07:22 | XMS_ITS | Clinical Summary ---
Author Organization [facility] Address [facility] [place] [address] Care Team Providers Care Dry Pan Operator Name Role Phone None, Provider Primary Care [...] 84 11/23/2020 7:45 PM CDT Temperature 37.4 C (99.4 F) 11/23/2020 3:41 PM CDT Respiratory Rate 25 11/23/2020 7:45 PM CDT [...] - 1-dose 75+ series) 2016 COVID-19 Vaccine ( - 2023-2 5 season) 2023 05/05/2020, 04/03/2020 Zoster Vaccines Completed 02/01/2020, 11/19/2019 Meningococcal B Vaccine Aged Out No l onger eligible based on patient's age to complete this topic Meningococcal Vaccine Aged Out No azar elizabeth eligible based on patient's age to complete this topic RSV Immunizations Under 20 Months Aged Out No longer eligible b ased on patient's age to complete this topic Insurance MED [facility] MEDICARE Care Teams Dry Pan Operator Relationship Specialty Start Date End Date None, Provider, PCP - General 11/23/20
[2024-05-22 08:28] LABS: Hematocrit 40.1 % (37.0-47.0); Hemoglobin 12.5 g/dL (12.0-15.0); Mean Corpuscular HGB Conc 31.2 g/dl (32-36); Mean Corpuscular Hemoglobin 28.3 pg (26-34); Mean Corpuscular Volume 90.9 fl (80-100); Platelet Count Result 291 k/mm3 (150-375); Red Blood Count 4.41 M/mm3 (4.2-5.4); Red Cell Distribution Width 14.1 % (11.5-14.5); White Blood Count 7.3 K/mm3 (4.5-10.0)
[2024-05-22 08:37] LABS: Alanine Aminotransferase 21 U/L (6-35); Albumin Level 4.3 g/dL (3.5-5.1); Alkaline Phosphatase 50 U/L (38-126); Anion Gap 10 mmol/L (4-12); Aspartate Amino Transferase 30 U/L (14-36); Bilirubin,Total 0.6 mg/dL (0.2-1.3); Blood Urea Nitrogen 21 mg/dL (7-17); Calcium 9.3 mg/dL (8.4-10.2); Carbon Dioxide 24 mmol/L (22-30); Chloride 102 mmol/L (98-107); Cholesterol 210 mg/dL (0-200); Estimated Glomerular Filt Rate 41; Glucose 100 mg/dL (65-110); HDL Direct 76 mg/dL; Potassium 4.5 mmol/L (3.4-5.0); Sodium 136 mmol/L (137-145); Triglycerides 148 mg/dL (<150)
[2024-05-22 08:45] LABS: LDL Cholesterol Direct 102 mg/dL
[2024-05-22 09:42] LABS: Folic Acid > 20.0 ng/mL (2.76->20)
[2024-05-22 09:55] LABS: Vitamin D 25 Hydroxy 71.4 ng/mL
[2024-05-23 20:28] LABS: Amphetamines NEGATIVE ng/mL (<500); Barbiturates NEGATIVE ng/mL (<300); Benzodiazepines NEGATIVE ng/mL (<100); Cocaine Metabolite NEGATIVE ng/mL (<150); Marijuana Metabolite NEGATIVE ng/mL (<20); Methadone Metabolite NEGATIVE ng/mL (<100); Opiates NEGATIVE ng/mL (<100); Oxidant NEGATIVE mcg/mL (<200); PCP NEGATIVE ng/mL (<25); pH 9.1 (4.5-9.0)
== END 2024-05-22 07:17 | disposition home or self-care (01) ==
LOC: ANHLAB 07:19
PROVIDERS: PCP Nurse Practitioner Family; Visit Provider Nurse Practitioner Family
DX: E78.5 Hyperlipidemia, unspecified (principal); E55.9 Vitamin D deficiency, unspecified; M81.0 Age-related osteoporosis without current pathological fracture; N18.9 Chronic kidney disease, unspecified; K21.9 Gastro-esophageal reflux disease without esophagitis; F41.9 Anxiety disorder, unspecified; C67.9 Malignant neoplasm of bladder, unspecified; M54.2 Cervicalgia; Z79.899 Other long term (current) drug therapy
CPT/HCPCS: 36415; 80053; 80061; 80307; 82306; 82607; 82746; 85027

== ENCOUNTER 2024-09-04 08:21 | Outpatient (CLI) | payer MEDICARE, SELFPAY ==
--- NOTE | ~2024-09-04 | DEXA_ITS ---
Bone Density Report Name: ACE BARTH Age: 84 Sex: Female Ethnicity: White Date of : 1940 Indication: osteopenia; prior fracture; cancer; hysterectomy; Referring Provider: XIANG ALBERTO Study: Bone densitometry was performed. Exam Date: September 04, 2024 Accession number: [id number] Bone Density: Region BMD T-score Z-score Classification AP Spine(L1-L4) 0.945 -0.9 1.9 Normal Femoral Neck (Left) 0.609 -2.2 0.3 Osteopenia Total Hip (Left) 0.801 -1.2 1.1 Osteopenia Femoral Neck (Right) 0.646 -1.8 0.6 Osteopenia Total Hip (Right) 0.769 -1.4 0.8 Osteopenia Total Hip Mean 0.785 -1.3 1.0 Osteopenia World Health Organization criteria for BMD impression classify patients as: Normal (T-score at or above -1.0), Osteopenia (T-score between -1.0 and -2.5), or Osteoporosis (T-score at or below -2.5). 10-year Fracture Risk(1): Major Osteoporotic Fracture 24% Hip Fracture 7.1% Reported Risk Factors: [place] (), Neck BMD=0.609, BMI=24.7, previous fracture (1) FRAX(R) Version 3.08. Fracture probability calculated for an untreated patient. Fracture probability may be lower if the patient has received treatment. Previous Exams: -- Region Exam Age BMD T-score BMD Change BMD Change Date g/cm2 vs Baseline vs Previous -- AP Spine (L1-L4) 09/04/2024 84 0.945 -0.9 -1.7% 0.3% 11/16/2021 81 0.942 -1.0 -2.0% -4.4%* 11/29/2018 78 0.985 -0.6 2.5%* 0.9% 06/28/2016 76 0.976 -0.6 1.6% -2.3%* 03/13/2014 73 1.000 -0.4 4.0%* 2.6%* 01/29/2013 72 0.974 -0.7 1.4% 3.1%* 01/28/2011 70 0.945 -0.9 -1.7% 1.9% 04/05/2008 67 0.928 -1.1 -3.5%* -2.4% 03/09/2007 66 0.950 -0.9 -1.2% -1.2% 06/15/2004 63 0.961 -0.8 Total Hip(Left) 09/04/2024 84 0.801 -1.2 -7.0%* -2.0% 11/16/2021 81 0.818 -1.0 -5.0%* 6.1%* 11/29/2018 78 0.771 -1.4 -10.5%* -13.1%* 06/28/2016 76 0.887 -0.5 3.0% 4.0%* 03/13/2014 73 0.853 -0.7 -1.0% 11.4%* 01/29/2013 72 0.765 -1.4 -11.1%* -1.4% 01/28/2011 70 0.776 -1.4 -9.8%* 1.0% 04/05/2008 67 0.769 -1.4 -10.7%* 0.6% 03/09/2007 66 0.764 -1.5 -11.2%* -11.2%* 06/15/2004 63 0.861 -0.7 Total Hip(Right) 09/04/2024 84 0.769 -1.4 -5.2%* 1.3% 11/16/2021 81 0.759 -1.5 -6.4%* -3.5%* 11/29/2018 78 0.787 -1.3 -3.0% -8.2%* 06/28/2016 76 0.858 -0.7 5.7%* 2.8% 03/13/2014 73 0.835 -0.9 2.9% 13.1%* 01/29/2013 72 0.738 -1.7 -9.0%* -6.5%* 01/28/2011 70 0.789 -1.3 -2.8% 6.2%* 04/05/2008 67 0.743 -1.6 -8.5%* 0.3% 03/09/2007 66 0.741 -1.7 -8.7%* -8.7%* 06/15/2004 63 0.811 -1.1 -- *Denotes significance at 95% confidence level, LSC for AP Spine = 0.022 g/cm2, LSC for Total Hip = 0.027 g/cm2 Clinical Information Provided by Patient: Has had a low trauma fracture Has used the following medications: Evista (i.e. raloxifene), Vitamin D, Calcium Has the following medical conditions: Cancer, Hysterectomy Patient maximum height was 66 Menopause Age: 51 No regular weight bearing exercise Does not regularly consume dairy products Onset of menses at age 16 Number of children 0 Impression: The patient has low bone mass, based on the Left Femoral Neck T-score. The patient has an estimated ten-year risk of hip fracture of 7.1% and an estimated ten-year risk of major fracture of 24%, based on the WHO FRAX algorithm. The patient has risk factors, including: previous fracture. No significant bone loss was observed. Discussion: BONE DENSITY IS LOW AT ONE OR MORE SKELETAL SITES. THE PATIENT'S BMD AND CLINICAL RISK FACTORS CONTRIBUTE TO THIS PATIENT'S HIGH RISK OF FRACTURE. This patient's lowest T-score is low at one or more skeletal sites. It meets the World Health Organization's (WHO) criteria for ?low bone mass? (T-score between -1.0 and -2.5). The patient's 10-year risk of hip fracture and 10 year risk of a major osteoporotic fracture as calculated by FRAX exceeds the threshold where pharmacological therapy is recommended by the National Osteoporosis Foundation (NOF). However, all treatment decisions require clinical judgment and consideration of individual patient factors, including patient preferences, comorbidities, previous drug use, risk factors not captured in the FRAX model (e.g., frailty, falls, vitamin D deficiency, increased bone turnover, interval significant decline in bone density) and possible under or overestimation of fracture risk by FRAX. The patient should follow a healthful lifestyle (good nutrition with adequate calcium and vitamin D, and appropriate weight-bearing exercise). Follow-Up: Consider a repeat BMD and Vertebral Fracture Assessment (VFA) exam in 2 years or sooner if medically necessary, to reassess this patient's status. Reported by: PHILLIP on 09/04/2024 8:40:00 AM. Reviewed, dictated and finalized at location A.
== END 2024-09-04 08:22 | disposition home or self-care (01) ==
LOC: MICIMG 08:22
PROVIDERS: PCP Obstetrics & Gynecology; Visit Provider Nurse Practitioner Family
DX: M85.89 Other specified disorders of bone density and structure, multiple sites (principal); Z78.0 Asymptomatic menopausal state
CPT/HCPCS: 77080

== ENCOUNTER 2024-09-05 10:35 | Outpatient (CLI) | payer MEDICARE, SELFPAY ==
--- NOTE | ~2024-09-05 | CT_ITS ---
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 TECHNIQUE: Multiple contiguous axial images of the abdomen and pelvis were performed without the admi nistration of intravenous contrast The dose-length product (DLP) was 311.71 mGy-cm. Automated exposure control and iterative reconstruction technique were employed. FINDINGS/OBSERVATIONS: Visualized lower thorax: Bibasilar atelectasis with cylindrical bronchiectasis. The remainder of the bilateral lung bases are clear. The heart is of normal size, without pericardial effusion. Small hiatal hernia is present. Liver: The liver demonstrates homogeneous attenuation and is not enlarged. Gallbladder and biliary system: The gallbladder is only minimally distended, and otherwise unremarkable. Pancreas: Limited evaluation of the pancreas secondary to the lack of intravenous contrast. Spleen: The spleen demonstrates homogeneous attenuation and is not enlarged. Kidneys: Redemonstration of left-sided renal atrophy and hydroureteronephrosis, unchanged from prior. The right kidney demonstrates only mild hydronephrosis and trace hydroureter, not uncommon post cyste ctomy and ileal conduit. Adrenal glands: Unremarkable. Gastrointestinal tract: Colonic diverticulosis without surrounding inflammatory change. Appendix: Surgically absent. Vasculature: Trace calcified atherosclerotic disease. Lymph nodes: Limited evaluation without the administration of intravenous contrast. Pelvic structures:Redemonstration of a pelvic floor ring, unchanged dating back to 11/28/2023. The uterus is retroverted and retroflexed and is otherwise unremarkable. Body wall and musculoskeletal: Interval development of a fat-containing umbilical hernia, extending to the left of midline, and caud al to the stoma. The fascial defect measures 2.4 cm. The hernia sac measures 1.9 x 5.2 cm. Age-appropriate degenerative disease within the lower thoracic and lumbosacral spines. IMPRESSION: Interval development of a fat-containing umbilical hernia extending to the left of midline and caudal to the stoma. Stable cross-sectional imaging without evidence of disease progression detected within the abdomen or pelvis. Reviewed, dictated and finalized at location A.
--- OUTSIDE RECORDS SUMMARY | 2024-09-05 10:48 | XMS_ITS ---
Author Organization [facility] Address [address] [place] [address] Care Team Providers Care Forensic Ballistics Expert Name Role Phone Kyler Diop DO Unavailable [phone] Adan Andrew MD Unavailable [phone] Cyrus Schwartz DO Primary Care Provider [phone] Active Problems Problem Noted Date Diagnosed Date [...] of 4 cycles started Oncology Supportive Care Therapy Plan Plan Name Start Date Discontinue Date Treatment Medications Discontinue Reason Plan Provider Hydration Therapy Plan 10/16/2020 04/26/2023 No medications scheduled. Automatic discontinuation of dormant plans Kyler Diop, DO
--- OUTSIDE RECORDS SUMMARY | 2024-09-05 10:48 | XMS_ITS | Clinical Summary ---
Author Organization [facility] [employer] Address [address] [facility] [place] [address] Care Team Providers Care Caustic Room Attendant Name Role Phone Dante Franklin MD Primary Care Provider Source Comments [facility] [facility] [employer],non-owned Affiliates and Associated Physician Practices is amultiple site organization consisting of ambulatory clinics and hospital sitesin [place], [place], [place] and [place]. This disclosure is being madepursuant to the Care Everywhere program and may not contain all information available regarding this patient. Last updated 17.[facility] Allergies Active Allergy Reactions Criticality Noted Date Comments Lactose Diarrhea Low 11/06/2020 Sulfa Drugs Urticaria Medium 07/18/2020 Childhood reaction Medications * Be aware that medications may not be up to date on this document. Alwaysverify current medications with the patient. ASPIRIN 81 PO Take 81 mg by [...] (one) tablet by mouth once daily Active [place]-3 Fatty Acids (KP Fish Oil) 1200 MG [...] Smokeless Tobacco: Never Tobacco Cessation:Counseling Given: No Comments Unknown Sex and Gender Information Value Date Recorded Sex Assigned at Not on file Legal Sex Female 4:09 PM CDT Gender Identity Not on file [...] 10:06 AM CDT Height 167.6 cm (5' 6) 11/03/2023 10:06 AM CDT Body Mass Index [...] - 1-dose 75+ series) 2016 COVID-19 VACCINE (2023-2 5 season) 2023 01/14/2021, 05/05/2020, 04/03/2020 DEPRESSION SCREENING 02/15/2024 MEDICARE AWV CALENDAR YEAR 2024 INFLUENZA VACCINE (#1) 2024 2, 01/14/2021 HEPATITIS B VACCINE Aged Out No longe [...] patient's age to complete this topic Insurance [facility] MEDICARE ADV AETNA MEDICARE ADV Care Teams Caustic Room Attendant Relationship Specialty Start Date End Date Dante Franklin MD [address] [place] [phone] PCP - General 08/08/20
--- OUTSIDE RECORDS SUMMARY | 2024-09-05 10:48 | XMS_ITS | Data Portability ---
Author Organization [facility] [address] [place] [address] [place] [address] Care Team Providers Care Primary Care Nurse Name Role Phone CASANDRARAHUL Primary Care Provider [phone] JONI ELKINS Primary Care Provider [phone] Assessment No assessment recorded. Plan of Treatment Reminders Order Date Submit Date Provider Last Modified By Organization Details Last Modified Time Details Appointments MED CHECK 2024 10:45A Claribel VALLECILLO MD Not available Not available Not available Lab None recorded. Referral None recorded. Procedures None recorded. Surgeries None recorded. Imaging US, [facility] 2023 [facility]24 [email or web address] [place], [address], [place], [address], 12/21/2023 21:46:41 US, transvagi nal 2023 024 [email or web address] [place], [address], [place], [address], 12/21/2023 21:46:41 Medication Orders clindamyc in 2 % vaginal cream 2024 025 [id number], [address], [place], [place], [id number], 05/28/2024 12:01:08 Patient TargetsNo targets recorded. Patient InstructionsNo instructions recorded. Reason for Referral None Reported. Results Created Date Observation Date Name Description Value Unit Range Abnormal Flag Note LastModifiedBy Organization Detail LastModifiedTime 12/21/19 24 12/21/2023 US, pelvi s No observ ation record ed. [facility] [address], [place], [address], 12/21/2023 17:27:52 12/21/19 24 12/21/2023 US, trans vagin al No observ ation record ed. [facility] [address], [place], [address], 12/21/2023 17:28:03 12/21/19 24 12/21/2023 US, pelvi s No observ ation record ed. [email or web address], [place], [address], 12/21/2023 21:46:32 03/06/19 25 03/06/2024 MAMMO , scree tomeka, bilat eral No observ ation record ed. [facility] [address], [place], [address], 03/07/2024 11:51:33 Result Notes None recorded. Problems Name Problem SNOMED Code Status Onset Date Resolution Date Notes Provider Name and Address Organization Details Recorded Time Disorder of bone and articula r cartilag e 599113204 Completed 201106/16/2021 Osteopen ia;Pract ice ID: 0001 Suad Aguirre [facility] 2 14:21:10 Screenin g for malignan t neoplasm of cervix Completed 201107/01/2020 Pap Smear;Pr actice ID: 0001 Danielle Fields MD [address], [place], [address], [facility] 1 17:43:37 Speciali zed medical examinat ion Completed 201107/01/2020 Routine gynecolo gical examinat ion;Prac salvador ID: 0001 Danielle Fields MD [address], [place], [address], [facility] 1 17:43:46 Adult health examinat ion Completed 201307/01/2020 Routine general medical examinat ion at a health care facility ;Practic e ID: 0001 Danielle Fields MD [address], [place], [address], [facility] 1 17:43:23 Microsco pic hematuri a [id number] Completed 201306/16/2021 HEMATURI A MICROSCO PIC;Prac salvador ID: 0001 Suad martel, [facility] 2 14:21:10 Vaginiti s and vulvovag initis Completed 201307/01/2020 Vaginiti s and vulvovag initis, unspecif ied;Prac salvador ID: 0001 Danielle Fields MD [address], [place], [address], [facility] 1 17:43:49 Blood leukocyt e number above referenc e range [id number] Completed 201507/01/2020 Elevated white blood cell count, unspecif ied;Baron rded Elsewher e: No Locat ion: [facility] S ource: EHR Security Officer Supervisor rashmi: N Practi ce ID: 0001 Sampson lable Time: 08:30:00 AM Danielle Fields MD [address], [place], [address], [facility] 1 17:43:[address] Concept Completed 201707/01/2020 Encounte r for general adult medical exam w abnormal findings ;Practic e ID: [address], [place], [address], [facility] 1 17:43:33 Screenin g for malignan t neoplasm of rectum Completed 201807/01/2020 Encounte r for screenin g for malignan t neoplasm of rectum;P ractice ID: 0001 Danielle Fields MD [address], [place], [address], [facility] [address] 17:43:[address] Concept Completed 201807/01/2020 Encntr for drum stock clerk exam (general ) (routine ) w/o abn findings ;Practic e ID: 0001 Danielle Fields MD [address], [place], [address], [facility] 17:43:44 Evaluati on finding Completed 201807/01/2020 Hematuri a, unspecif ied;Prac salvador ID: 0001 Danielle Fields MD [address], [place], [address], [facility] 17:43:28 Hyperten sive disorder 00531525 Completed 201806/16/2021 HTN;Baron rded Elsewher e: No Locat ion: [facility] S ource: EHR Security Officer Supervisor rashmi: N Practi ce ID: 0001 Sampson lable Time: 10:30:00 AM [facility] [address] 14:[facility] Concept Completed 201807/01/2020 Encntr for general adult medical exam w/o abnormal findings ;Recorde d Elsewher e: No Locat ion: [facility] S ource: EHR Security Officer Supervisor rashmi: N Practi ce ID: 0001 Sampson lable Time: 10:30:00 AM Danielle Fields MD [address], [place], [address], [facility] 1 17:43:42 Uterine prolapse 76016238 Active 2022 Vaginal wall/prairie band rine prolapse ROMANA Hyde [address], [place], [address], [facility] 15:48:57 Problem Notes None recorded. Procedures Surgical History Date Name Laterality Status Provider Name and Address Organization Details Recorded Time 03/21/19 25 Pessary Insertion completed Amish Vallecillo MD [address], [place], [address], [facility] 03/21/2024 16:14:01 09/19/19 24 Pessary Insertion completed Amish Vallecillo MD [address], [place], [address], [facility] 09/19/2023 16:13:11 05/31/19 24 Pessary Insertion completed Laura Bello [facility] [address], [place], [address], [facility] 05/31/2023 10:15:16 03/01/19 24 Pessary Insertion completed Laura Bello [facility] [address], [place], [address], [facility] 03/01/2023 10:29:04 11/26/19 23 Pessary Insertion completed Laura Bello [facility] [address], [place], [address], [facility] 11/25/2022 17:00:25 09/03/19 23 Pessary Insertion completed Laura Bello [facility] [address], [place], [address], [facility] 09/02/2022 12:44:23 12/23/19 22 Date of Last Mammogram completed Toma Carson [facility] 11/25/2022 11:02:32 11/24/19 22 Most Recent Bone Density completed Toma Carson [facility] 11/25/2022 11:02:36 11/18/19 21 completed [facility] 06/17/2021 11:32:51 11/18/19 21 Partial Hysterectomy completed [facility] 09/19/2023 15:47:48 07/03/19 21 Date of Last Pap Smear completed [facility] 06/17/2021 11:38:58 02/14/19 18 appendectomy completed [facility] 09/19/2023 15:46:49 02/14/19 08 Date of Last Colonoscopy completed [facility] 09/19/2023 15:46:26 02/14/19 08 Colonoscopy completed [facility] 06/16/2021 17:29:25 02/14/19 07 procedure on patella completed [facility] 09/19/2023 15:47:20 Imaging Results None recorded. Procedure Notes None recorded. Medical Equipment None Reported. Allergies Allergen ID Allergen Name Allergen Category Reaction Reaction Severity Criticality Documentation Date Start Date Code Code System Note Provider Name and Address Organization Details Recorded Time 68599 sulfameth oxazole medicatio n Not available Not available Not available 02/01/2020 18491 RxNorm Comme nt: [facility]; [facility] 14:14:53 2255 Substance with sulfonami de structure and antibacte rial mechanism of action (substanc e) medicatio n Not available Not available Not available 11/19/2019 93918 8003 SNOMED Kimberly martel [facility] 0 12:17:48 2256 trimethop rim medicatio n Not available Not available Not available 11/19/2019 84026 RxNorm Kimberly martel [facility] 0 12:17:54 Medications Name Sig Start [...] Prescrib ed Elsewher e: No Locat ion: [facility] odify By: [email or web address] Maldonado ncounter DateTime : 01/10/20 11 06:00:32 PM [...] Prescrib ed Elsewher e: No Locat ion: [facility] odify By: amkuhkim Maldonado ncounter DateTime : 10/02/19 14 03:00:58 PM [...] Prescrib ed Elsewher e: Yes Loca tion: Alixaraceli joel [facility] odify By: everette menjivar DateTime : [...] applicat orful every day by vaginal route. 05/28 completed Not Available Not Available Not Available estradiol 0.01% (0.1 mg/gram) vaginal cream 03/01 completed Not Available Not Available Not Available methylpre dnisolone 4 mg tablets in a dose pack 08/14 completed Not Available Not Available Not Available neomycin 500 mg tablet 04/07 completed Not Available Not Available Not Available Vitamin D2 1,250 mcg (50,000 unit) capsule take 1 capsule (18346UC ITS) by oral route every week 04/12 completed Prescrib ed Elsewher e: No Locat ion: Blair maldonado [facility] odify By: tor menjivar DateTime : 09/29/19 14 09:57:15 AM Not Available Not Available Not Available Stanback Headache Powder 650 mg oral packet 04/07 completed Prescrib ed Elsewher e: Yes Loca tion: Alixaraceli joel [facility] odify By: everette menjivar DateTime : [...] Prescrib ed Elsewher e: Yes Loca tion: [facility] odify By: everette menjivar DateTime : [...] Prescrib ed Elsewher e: Yes Loca tion: [facility] odify By: everette menjivar DateTime : 03/11/19 12 09:45:00 AM Not Available Not Available Not Available B Complex 1.7 mg-20 mg-2 mg-1.2 mg/mL sublingua l liquid active Prescrib ed Elsewher e: Yes Loca tion: [facility] odify By: everette menjivar DateTime : 03/11/19 12 09:45:00 AM Not Available Not Available Not Available Bystolic 2.5 mg tablet take 2 tablet by oral route every day 06/17 completed Prescrib ed Elsewher e: Yes Loca tion: [facility] odify By: tor ruthuntkarina DateTime : 04/12/19 15 10:00:00 AM Not Available Not Available Not Available Bystolic 5 mg tablet 06/17 completed Not Available Not Available Not Available estradiol 10 mcg vaginal tablet Insert 1 tablet twice a week at bedtime for postmeno pausal atrophy & Hx of UTI active Not Available Not Available No t Available Probiotic 06/17 completed Not Available Not Available Not Available [employer] 3 Fish Oil 684 mg-1,200 mg capsule,d elayed release 06/17 completed Prescrib ed Elsewher e: Yes Loca tion: [facility] odify By: everette menjivar DateTime : 03/11/19 12 09:45:00 AM Not Available Not Available Not Available glucosami ne-chondr oitin 500 mg-400 mg-66 mg-3 mg capsule 04/07 completed Prescrib ed Elsewher e: Yes Loca tion: [facility] odify By: tor menjivar DateTime : 08/30/19 19 10:30:00 AM Not Available Not Available Not Available Probiotic 3 billion cell capsule 04/07 completed Prescrib ed Elsewher e: Yes Loca tion: [facility] joel [facility] odify By: tor menjivar DateTime : [...] Body mass index (BMI) Body weight Systolic And Diastolic Provider Name and Address Organization Details Last Updated DateTime 02/28/2024 165.1 cm 25.1 kg/m2 32501.45 g 146/83 mm[Hg] Toma [facility] 02/28/2024 12:01:31 Date Recorded Body height Body mass index (BMI) Body weight Systolic And Diastolic Provider Name and Address Organization Details Last Updated DateTime 03/21/2024 165.1 cm 25 kg/m2 45783.86 g 130/84 mm[Hg] Toma [facility] 03/21/2024 14:55:35 Date Recorded Body height Body mass index (BMI) Body weight Systolic And Diastolic Provider Name and Address Organization Details Last Updated DateTime 05/28/2024 165.1 cm 25.3 kg/m2 35471.04 g 145/80 mm[Hg] Toma Catherineer [facility] 05/28/2024 12:00:35 Date Recorded Body height Body mass index (BMI) Body weight Systolic And Diastolic Provider Name and Address Organization Details Last Updated DateTime 01/09/2024 165.1 cm 25.5 kg/m2 07514.63 g 144/79 mm[Hg] Toma Alli [facility] 01/09/2024 15:14:08 Social History Question Answer Notes LastModified by Organizat ion Details LastModified Time Tobacco Smoking Status Never Smoker Fiordaliza Ocampo tahmina, [facility] 09/02/2022 12:24:30 Do You Have An Advance Directive? Yes Information n ot available 06/17/2021 Are You Blind Or Do You Have [...] Or The Highest Degree You Have Received? [id number] Information not available 06/17/2021 Are There Any [...] Information not available 06/17/2021 Do You Use Sunscreen Routinely? Yes [email or web address] Information not available 09/19/2023 Has Tobacco Cessation Counseling Been Provided? No [email or web address] Information not available 09/19/2023 Have You Used IV Drugs? No Information not available 06/17/2021 Do You Have Difficulty Walking Or Climbing Stairs? No Information not available 09/02/2022 Sex: Unknown Functional Status Question Answer Note LastModified by Organizat ion Details LastModified Time Do you use any illicit or recreational drugs? No Information not available 06/16/2021 Do you or have you ever used any other forms of tobacco or nicotine? No [email or web address] Information not available 09/19/2023 What is your level of alcohol consumption? Occasional Information not available 06/16/2021 Are you able to walk? YESWOREST Information not available 06/16/2021 Are you able to care for yourself? Yes Information n ot available 09/02/2022 What is your occupation? Retired Information not available 06/17/2021 Do you have difficulty dressing or bathing? No Information not available 09/02/2022 What is your exercise level? Occasional Information not available 06/16/2021 Mental Status Question Answer Note LastModified by Organization D etails LastModified Time Do you feel stressed (tense, restless, nervous, or anxious, or unable to sleep at night)? [id number] [email or web address] Information not available 09/19/2023 Family History Relationship Description Onset Age of [...] (Food, seasonal, environmental ) N Other N Blood Transfusion N Drug/Latex Allergies/Reactions N Breast Cancer N Dermatologic Disorders N [...] SNOMED-CT Code Diagnosis ICD10 Code Diagnosis Note [id number] PRESTON [facility] [address] [address] 11/19/2019 12:15:22 11/19/2019 12:53:35 Vaginal dryness 44929945 N89.8 Doing well on Premarin & would like to continue. Time spent in visit is a total of 26 mins with at least 50% of visit consisting of counseling and review of plan of care. Postmenopa usal osteopenia 088321205 M85.80 On Evista currently. Would like to continue. We agreed to re-evaluat e next year when Dexa due in 2020. We discussed taking holiday from this medication if has been on >5yrs or not making progress with this therapy. Consider bone specialist referral moving forward. [employer] 2019 [place]. [id number] Laura Bello , [facility] [address] [address] 03/25/2020 14:06:42 03/25/2020 15:42:03 Atrophic vaginitis 33652844 N95.2 After much discussion , we realized [...] this patient s visit, including available hand door builder upon arrive, temperatur e check and being asked a series of screening questions. All staff wore face coverings during this encounter, as well as provided additional cleaning and sanitizing of all surfaces, including countertop s, pens, chairs, door handles, light switches, etc, prior to and following the patient s visit. [id number] Danielle Fields MD [place] [address] [address] 07/01/2020 17:30:37 07/01/2020 21:11:41 Disorder of uterine cervix 41997427 N88.9 Malignant neoplasm of urinary bladder 266376981 C67.9 [id number] Laura Bello [facility] [address] [address] 06/17/2021 11:17:03 06/17/2021 12:04:00 Gynecologic examination 40833646 Z01.419 Take Calcium with Vitamin D 12-1500mg daily. Do monthly self breast exams. It is advised to get annual flu shot in the fall and she could obtain at [facility] or [facility] care clinic. If you haven't received the Tdap [...] per medicaid; order given Postmenopa usal osteopenia 195153748 M85.80 On Evista currently. Would like to continue. We agreed to re-evaluat e next year when Dexa due in 2020 but Covid deterred this imaging. We discussed taking holiday from this medication if has been on >5yrs or not making progress with this therapy. Consider bone specialist referral moving forward.Wi ll complete Dexa & update on any med changes Postmenopausal state 653 00408 Z78.0 [id number] Laura Bello , [facility] [address] [address] 04/07/2022 10:33:24 04/08/2022 15:27:26 Vaginal wall prolapse 959518344 N81.4 Vaginal wall/uteri ne grade 2-3 lying [...] counseling and review of plan of care. [id number] Laura Bello [facility] [address],[facility] [place] [address] 04/09/2022 15:07:22 04/09/2022 15:57:52 Anterior vaginal wall prolapse 393751541 N81.4 Today we attempted to fit for [...] current health issues. Uncertain if will need drum stock clerk or urogyn for this issue. She is in agreement with this plan. Time spent in visit is a total of 15 mins with at least 50% of visit consisting of counseling and review of plan of care. [id number] Amish Vallecillo MD [place] [address] [address] 04/12/2022 14:39:31 04/12/2022 16:08:49 Prolapse of female genital organs 48187267 N81.9 patient is an 81-year-ol d female [...] talked about referral possibilit ies. Talked Urogynecol ogy neurology. She is going to contact [facility]. This is a group that removed her bladder. Urogynecol josefinay is within that group. Spent over 20 minutes face-to-fa ce. More than 50% was counseling . She will talk to [facility]. [id number] Laura Bello [facility] [address] [address] 09/02/2022 12:23:08 09/02/2022 12:48:11 Prolapse of female genital organs 87947010 N81.9 See procedure notes.New pessary inserted today. [id number] Laura Bello [facility] [address] [address] 11/25/2022 10:47:59 11/25/2022 17:00:57 Uterine prolapse 35079896 N81.4 Here today for pessary cleaning x 3mosWill return in 3mos for another cleaning as unable to remove device her self.Will consider every 6mos cleanings after that since removal is so irritation to her thin postmenopa usal skin.Consi elizabeth vaginal estrogen therapy if not contraindi cated moving forward. See procedure notes [id number] Laura Bello [facility] [address],[place] [address] 03/01/2023 09:40:21 03/01/2023 10:34:57 Prolapse of female genital organs 05159985 N81.9 See procedure notes.Pess kristal cleaned & re-inserte d today. Atrophy of vagina 420411 009 N95.2 Change in medication for vaginal [...] counseling and review of plan of care. [id number] [facility] [address] [address] 05/31/2023 09:36:11 05/31/2023 10:27:40 Prolapse of female genital organs 09044768 N81.9 See procedure notes.Pess kristal cleaned & re-inserte d today. 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 [id number] Amish Vallecillo MD [place] [address] [address] 09/19/2023 14:57:33 09/19/2023 17:41:37 Prolapse of female genital organs 85657048 N81.9 83-year-ol d female with Pelvic organ prolapse. 0. ring with support was inserted. She tolerated the procedure well. She will follow-up in 3 months [id number] Amish Vallecillo MD [place] [address] [address] 12/20/2023 11:12:51 12/20/2023 13:51:19 Postmenopausal bleeding 10395236 N95.0 Prolapse o f female genital organs 91891277 N81.9 This patient is a 83 y/o [...] dark vaginal discharge. No fistula was observe. [id number] Amish Vallecillo MD [place] [address] [address] 12/21/2023 13:46:48 12/21/2023 15:03:22 Postmenopausal bleeding 93784491 N95.0 [id number] Amish Vallecillo MD [place] [address] [address] 12/21/2023 14:34:25 12/21/2023 21:52:11 [id number] Amish Vallecillo MD [place] [address] [address] 01/09/2024 14:46:52 01/09/2024 17:08:33 Prolapse of female genital organs 33905954 N81.9 this patient is an 83-year-ol d [...] We will check on this Going forward. [id number] Amish Vallecillo MD [place] [address],[facility] [place] [address] 02/28/2024 11:38:36 03/02/2024 08:51:57 Bacterial vaginosis 241449309 N76.0 Prolapse o f female genital organs 92107430 N81.9 this patient is an 83-year-ol d [...] 20 minutes on the patient's care total. [id number] Amish Vallecillo MD [place] [address],[facility] [place] [address] 03/21/2024 14:47:11 03/21/2024 16:23:49 Prolapse of female genital organs 99841648 N81.9 34-year-ol d female presents for follow-up [...] patient to follow up in 2 months. [id number] Amish Vallecillo MD [place] [address] [address] 05/28/2024 11:16:55 05/28/2024 12:50:44 Prolapse of female genital organs 64518794 N81.9 This patient is a 83 y/o female who presents for pessary check. She has no complaints with respect to pessary and its performanc e. The pessary was removed and cleaned. The vagina was examined and found to be normal: no ulceration or erosion. The pessary was replaced. The patient agreed to RTC in 3 months. Health Concerns Section Related Observation LastModified by Organization Detai ls LastModified Time None Recorded Concern Status LastModified by Organization Details LastModified Time None Recorded Advance Directives Directive Y: Payers Insurance Date Sequence Insurance Name Policy Number Policy Encinas Covered Member ID Encinas Member ID Guarantor Name 09/02/2022 1 [facility] (MEDICARE REPLACEMENT/ ADVANTAGE - PPO) [id number] Nikia Zeng [id number] Nikia Zeng 09/03/2024 1 [employer] (MEDICARE REPLACEMENT/ ADVANTAGE - PPO) [id number] Nikia Zeng [id number] Nikia Zeng Notes Date Note Type Note [...] forward. Amish Vallecillo MD [address], [place], [address], [facility] 01/09/2024 17:08:18 02/28/2024 text/html this patient [...] total. Amish Vallecillo MD [address], [place], [address], [facility] 03/01/2024 20:45:32 03/21/2024 text/html 83-year-old fema le with pelvic organ prolapse. She has had her bladder removed. She has some type of conduit. Her anterior vaginal wall feels very thin. Her prolapse was poorly treated with her pessary. Urogynecology ordered a new pessary. I placed this pessary today. Amish Vallecillo MD [address], [place], [address], [facility] 03/21/2024 16:15:34 05/28/2024 text/html This patient is a 83 y/o female who presents for pessary check. She has no complaints with respect to pessary and its performance. The pessary was removed and cleaned. The vagina was examined and found to be normal: no ulceration or erosion. The pessary was replaced. The patient agreed to RTC in 3 months. Amish Vallecillo MD [address], [place], [address], [facility] 05/28/2024 12:49:10 OBGyn Episode No OBEpisode recorded.
--- OUTSIDE RECORDS SUMMARY | 2024-09-05 10:48 | XMS_ITS | Clinical Summary ---
Author Organization [facility] Address [address] [place] [address] Care Team Providers Care Cad Detailer Name Role Phone Kyler Diop DO Unavailable [phone] Adan Andrew MD Unavailable [phone] Cyrus Schwartz DO Primary Care Provider [phone] Allergies Active Allergy Reactions Criticality Noted Date [...] Comments Blood Pressure 131/75 04/23/2022 8:31 AM CASE MANAGEMENT ASSOCIATE Pulse 104 04/23/2022 8:31 AM CASE MANAGEMENT ASSOCIATE Temperature 36.7 C (98 F) 04/23/2022 8:31 AM CASE MANAGEMENT ASSOCIATE Respiratory Rate 18 04/23/2022 8:31 AM CASE MANAGEMENT ASSOCIATE Oxygen Saturation 94% 04/23/2022 8:31 AM CASE MANAGEMENT ASSOCIATE Inhaled Oxygen Concentration - - Weight 66.5 kg (146 lb 9.7 oz) 04/23/2022 8:31 A M CASE MANAGEMENT ASSOCIATE Height 165.1 cm (5' 5) 04/23/2022 8:31 AM CASE MANAGEMENT ASSOCIATE Body Mass Index 24.4 04/23/2022 8:31 AM CASE MANAGEMENT ASSOCIATE Plan of Treatment Health Maintenance Due Date Last Done Comments Depression Screening 1940 Osteoporosis Screening-Bone Density Scan 1940 DTaP/Tdap/Td Vaccine (1 - Tdap) 1952 Hepatitis B Screening 06/22/1959 Pneumococcal vaccine 65+ (1 of 1 - PCV) 06/22/1991 Well Visit 65+ 2006 Fall Risk Assessment 11/22/2021 11/22/2020 Covid-19 Vaccine ( season) 2023 01/14/2021, 05/05/2020, 04/03/2020 Influenza Vaccine (#1) 2024 2, 01/14/2021, 11/19/2019 Zoster Vaccine Completed 02/01/2020, 11/19/2019 Medical Devices Implanted Type Area [employer] Fitness Instructor Device Identifier Shelf Expiration Date Model / Serial / Lot [employer] Raymond 160-210 7fr 80cm Open Tip Luer Lock Adapter Guidewire Graduate Straight Latex Free - [id number] Implanted:Qty: 2 on 11/17/2020 by Adan Andrew MD at [facility] Bilateral: Ureter [employer] Raymond 07/17/2024 160-210 / / [id number] Insurance [facility] MEDICARE ADVANTAGE [facility] MEDICARE [facility] MEDICARE ADVANTAGE Advance Directives For more information, please contact: [phone] Documents on File Type Date Recorded 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 Application Development Team Lead 11/17/2020 5:38 AM * Full Code (Latest Code Status on File) Date Activated Date Inactivated Comments 11/17/2020 5:11 PM 11/22/2020 6:17 PM Care Teams Cad Detailer Relationship Specialty [place] [address] [place] [id number] PCP - General Internal Medicine 09/25/21 Kyler Diop DO [address] [place] [address] MEDICAL ONCOLOGY, [address] [address] Medical Oncologist/Pumping Station Supervisor Hematology and Oncology 08/19/20 [place] [address] [place] [address] Consulting Physician Urology 11/22/20
--- OUTSIDE RECORDS SUMMARY | 2024-09-05 10:48 | XMS_ITS | Continuity of Care Document ---
Author Organization [facility] Address [address] [place] [address] [address] [place] [address] Phone Care Team Providers Care Underwater Hunter Name Role Phone Hillman OD, Hussain Unavailable Unavailable Advance Directives Directive Yes / No Effective Date File Name No Information Encounters Encounter Description Practice Location Reason(s) For Visit Diagnoses Date Provider Providers Copied on Encounter [facility], [id number] [place] [address] [address], [place], [place], [id number], [place] tel:[phone] [facility] No Information Mar-2 3-200 6 Hillman OD Hussain. [address] , [address], [place], [address], [place]. tel:[phone] Family History Family Member Type Diagnosis Age At Onset No Information Payers Payer name Insurance type Covered democrat ID Authoriza tion(s) [employer] SOI CI [id number] Social History Type Description Quantity Date Captured [...]
--- OUTSIDE RECORDS SUMMARY | 2024-09-05 10:48 | XMS_ITS | Referral Summary ---
Author Organization [facility] Address [address] [place] [address] Care Team Providers Care Entry Level Lab Technician Name Role Phone Kyler Diop DO Unavailable [phone] Adan Andrew MD Unavailable [phone] Cyrus Schwartz DO Primary Care Provider [phone] Allergies Active Allergy Reactions Criticality Noted Date [...] Comments Blood Pressure 131/75 04/23/2022 8:31 AM COUNCILMAN Pulse 104 04/23/2022 8:31 AM COUNCILMAN Temperature 36.7 C (98 F) 04/23/2022 8:31 AM COUNCILMAN Respiratory Rate 18 04/23/2022 8:31 AM COUNCILMAN Oxygen Saturation 94% 04/23/2022 8:31 AM COUNCILMAN Inhaled Oxygen Concentration - - Weight 66.5 kg (146 lb 9.7 oz) 04/23/2022 8:31 A M COUNCILMAN Height 165.1 cm (5' 5) 04/23/2022 8:31 AM COUNCILMAN Body Mass Index 24.4 04/23/2022 8:31 AM COUNCILMAN Plan of Treatment Not on file Medical Devices Implanted Type Area Joint Creaser Device Identifier Shelf Expiration Date Model / Serial / Lot [employer] Raymond 160-210 7fr 80cm Open Tip Luer Lock Adapter [employer] Graduate Straight Latex Free - [id number] Implanted:Qty: 2 on 11/17/2020 by Adan Andrew MD at [facility] Bilateral: Ureter [employer] Raymond 07/17/2024 160-210 / / [id number] Insurance [facility] MEDICARE ADVANTAGE [facility] MEDICARE [employer] MEDICARE ADVANTAGE Advance Directives For more information, please contact: [phone] Documents on File Type Date Recorded 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 Power of Forensic Sergeant 11/17/2020 5:38 AM * Full Code (Latest Code Status on File) Date Activated Date Inactivated Comments 11/17/2020 5:11 PM 11/22/2020 6:17 PM Care Teams Entry Level Lab Technician Relationship Specialty [place] [address] [place] [address] PCP - General Internal Medicine 8/12/22 [place] [address] [place] [address] MEDICAL ONCOLOGY, [address] [address] Medical Oncologist/Help Desk Support Specialist Hematology and Oncology 08/19/20 [place] [address] [place] [address] Consulting Physician Urology 11/22/20
== END 2024-09-05 10:36 | disposition home or self-care (01) ==
PROVIDERS: PCP Nurse Practitioner Family; Visit Provider Internal Medicine Medical Oncology
DX: C67.9 Malignant neoplasm of bladder, unspecified (principal); M85.852 Other specified disorders of bone density and structure, left thigh; M85.851 Other specified disorders of bone density and structure, right thigh
CPT/HCPCS: 74176

== ENCOUNTER 2024-09-10 07:51 | Outpatient (CLI) | payer MEDICARE, SELFPAY ==
--- OUTSIDE RECORDS SUMMARY | 2024-09-10 08:00 | XMS_ITS ---
Author Organization [facility] Address [address] [place] [address] Care Team Providers Care Assembler Steam And Gas Turbine Name Role Phone Kyler Diop DO Unavailable [phone] Adan Andrew MD Unavailable [phone] Cyrus Schwartz DO Primary Care Provider [phone] Active Problems Problem Noted Date Diagnosed Date [...]
--- OUTSIDE RECORDS SUMMARY | 2024-09-10 08:00 | XMS_ITS | Data Portability ---
Author Organization [facility] Address [address] [place] [address] Care Team Providers Care Mortgage Advisor Name Role Phone CASANDRA RAHUL Primary Care Provider JONI ELKINS Primary Care Provider Assessment No assessment recorded. Plan of Treatment Reminders Order Date Submit Date Provider Last Modified By Organization Details Last Modified Time Details Appointments None recorded. Lab None recorded. Referral None recorded. Procedures None recorded. Surgeries None recorded. Imaging None recorded. Medication Orders clindamycin 2 % vaginal cream 2024 025 [id number], [address], [place], [place], [id number], 12:01:08 Patient TargetsNo targets recorded. Patient InstructionsNo instructions recorded. Reason for Referral None Reported. Results Created Date Observation Date Name Description Value Unit Range Abnormal Flag Note LastModifiedBy Organization Detail LastModifiedTime 12/21/19 24 12/21/2023 , pelvi s No observ ation record ed. [facility] [address], [place], [address], 12/21/2023 17:27:52 12/21/19 24 12/21/2023 US, kuldip bae al No observ ation record ed. [facility] [address], [place], [address], 12/21/2023 17:28:03 12/21/19 24 12/21/2023 US, pelvi s No observ ation record ed. [email or web address] [address] [address], [place], [address], 12/21/2023 21:46:32 03/06/19 25 03/06/2024 MAMMO , scree tomeka, bilat eral No observ ation record ed. [facility] [address], [place], [address], 03/07/2024 11:51:33 09/09/19 25 09/04/2024 imagi ng/di agnos tic resul t No observ ation record ed. [email or web address] [address], [place], [address], 09/08/2024 23:44:35 Result Notes None recorded. Problems Name Problem SNOMED Code Status Onset Date Resolution Date Notes Provider Name and Address Organization Details Recorded Time Disorder of bone and articula r cartilag e 563997396 Completed 201106/16/2021 Osteopen ia;Pract ice ID: 0001 Suad Aguirre [facility] 2 14:21:10 Screenin g for malignan t neoplasm of cervix Completed 201107/01/2020 Pap Smear;Pr actice ID: 0001 Danielle Fields MD [address], [place], [address], [facility] 1 17:43:37 Speciali zed medical examinat ion Completed 201107/01/2020 Routine gynecolo gical examinat ion;Prac salvador ID: 0001 Danielle Fields MD [address], [place], [address], [facility] 1 17:43:46 Adult health examinat ion Completed 201307/01/2020 Routine general medical examinat ion at a health care facility ;Practic e ID: 0001 Danielle Fields MD [address], [place], [address], [facility] 1 17:43:23 Microsco pic hematuri a [id number] Completed 201306/16/2021 HEMATURI A MICROSCO PIC;Prac salvador ID: 0001 Suad martel, [facility] 2 14:21:10 Vaginiti s and vulvovag initis Completed 201307/01/2020 Vaginiti s and vulvovag initis, unspecif ied;Prac salvador ID: 0001 Danielle Fields MD [address], [place], [address], [facility] 1 17:43:49 Blood leukocyt e number above referenc e range [id number] Completed 201507/01/2020 Elevated white blood cell count, unspecif ied;Baron rded Elsewher e: No Locat ion: [facility] S ource: EHR Security Sales Consultant rashmi: N Practi ce ID: 0001 Sampson lable Time: 08:30:00 AM Danielle Fields MD [address], [place], [address], [facility] [address] 17:43:[address] Concept Completed 201707/01/2020 Encounte r for general adult medical exam w abnormal findings ;Practic e ID: 0001 Danielle Fields MD [address], [place], [address], [facility] 1 17:43:33 Screenin g for malignan t neoplasm of rectum Completed 201807/01/2020 Encounte r for screenin g for malignan t neoplasm of rectum;P ractice ID: 0001 Danielle Fields MD [address], [place], [address], [facility] [address] 17:43:[address] Concept Completed 201807/01/2020 Encntr for reinsurance clerk exam (general ) (routine ) w/o abn findings ;Practic e ID: 0001 Danielle Fields MD [address], [place], [address], [facility] 1 17:43:44 Evaluati on finding Completed 201807/01/2020 Hematuri a, unspecif ied;Prac salvador ID: 0001 Danielle Fields MD [address], [place], [address], [facility] 1 17:43:28 Hyperten sive disorder 35727848 Completed 201806/16/2021 HTN;Baron rded Elsewher e: No Locat ion: [facility] S ource: EHR Security Sales Consultant rashmi: N Practi ce ID: 0001 Sampson lable Time: 10:30:00 AM [facility] [address] 14:21:[address] Concept Completed 201807/01/2020 Encntr for general adult medical exam w/o abnormal findings ;Recorde d Elsewher e: No Locat ion: [facility] S ource: EHR Security Sales Consultant rashmi: N Practi ce ID: 0001 Sampson lable Time: 10:30:00 AM Danielle Fields MD [address], [place], [address], [facility] 1 17:43:42 Uterine prolapse 35764458 Active 2022 Vaginal wall/jayne rine prolapse Laura Bello LOLIS- [address], [place], [address], [facility] 3 15:48:57 Problem Notes None recorded. Procedures Surgical History Date Name Laterality Status Provider Name and Address Organization Details Recorded Time 03/21/19 25 Pessary Insertion completed Amish Vallecillo MD [address], [place], [address], [facility] 03/21/2024 16:14:01 09/19/19 24 Pessary Insertion completed Amish Vallecillo MD [address], [place], [address], [facility] 09/19/2023 16:13:11 05/31/19 24 Pessary Insertion completed Laura Bello [facility] [address], [place], [address], [facility] 05/31/2023 10:15:16 03/01/19 24 Pessary Insertion completed Laura Bello [facility] [address], [place], [address], [facility] 03/01/2023 10:29:04 11/26/19 23 Pessary Insertion completed Laura Bello [facility] [address], [place], [address], [facility] 11/25/2022 17:00:25 09/03/19 23 Pessary Insertion completed Laura Bello [facility] [address], [place], [address], [facility] 09/02/2022 12:44:23 12/23/19 22 Date of Last Mammogram completed Toma Carson [facility] 11/25/2022 11:02:32 11/24/19 22 Most Recent Bone Density completed Toma Carson [facility] 11/25/2022 11:02:36 11/18/19 21 completed Suad Aguirre [facility] 06/17/2021 11:32:51 11/18/[address] [facility] 09/19/2023 15:47:48 07/03/19 21 Date of Last Pap Smear completed [facility] 06/17/2021 11:38:58 02/14/[address] [facility] 09/19/2023 15:46:49 02/14/19 08 Date of Last Colonoscopy completed [facility] 09/19/2023 15:46:26 02/14/19 08 Colonoscopy completed [facility] 06/16/2021 17:29:25 02/14/19 07 procedure on patella completed [facility] 09/19/2023 15:47:20 Imaging Results None recorded. Procedure Notes None recorded. Medical Equipment None Reported. Allergies Allergen ID Allergen Name Allergen Category Reaction Reaction Severity Criticality Documentation Date Start Date Code Code System Note Provider Name and Address Organization Details Recorded Time 45474 sulfameth oxazole medicatio n Not available Not available Not available 02/01/2020 37758 RxNorm Comme nt: [facility]; [facility] Available [facility] 0 14:14:53 2255 Substance with sulfonami de structure and antibacte rial mechanism of action (substanc e) medicatio n Not available Not available Not available 11/19/2019 02205 8003 SNOMED Kimberly martel [facility] 0 12:17:48 2256 trimethop rim medicatio n Not available Not available Not available 11/19/2019 05290 RxNorm Kimberly martel [facility] 0 12:17:54 Medications Name Sig [...] Prescrib ed Elsewher e: No Locat ion: [facility] odify By: tor menjivar DateTime : 01/10/20 11 06:00:32 PM Not [...] Prescrib ed Elsewher e: No [facility] By: ampenelope menjivar DateTime : 10/02/19 14 03:00:58 PM Not [...] Prescrib ed Elsewher e: Yes [facility] By: everette menjivar DateTime : 03/11/19 [...] mcg (50,000 unit) capsule take 1 capsule (90446KU ITS) by oral route every week 04/12 completed Prescrib ed Elsewher e: No Locat ion: [facility] odify By: tor menjivar DateTime : 09/29/19 14 09:57:15 AM Not Available Not Available Not Available Stanback Headache Powder 650 mg oral packet 04/07 completed Prescrib ed Elsewher e: Yes Loca tion: [facility] odify By: everette menjivar DateTime [...] Elsewher e: Yes Loca tion: Blair maldonado [facility] odify By: everette menjivar DateTime : [...] Prescrib ed Elsewher e: Yes Loca tion: lBair maldonado [facility] odify By: everette menjivar DateTime : 03/11/19 12 09:45:00 AM Not Available Not Available Not Available B Complex 1.7 mg-20 mg-2 mg-1.2 mg/mL sublingua l liquid active Prescrib ed Elsewher e: Yes Loca tion: [facility] odify By: everette menjivar DateTime : 03/11/19 12 09:45:00 AM Not Available Not Available Not Available Bystolic 2.5 mg tablet take 2 tablet by oral route every day 06/17 completed Prescrib ed Elsewher e: Yes Loca tion: Blair maldonado [facility] odify By: tor menjivar DateTime : [...] completed Not Available Not Available Not Available [place] 3 Fish Oil 684 mg-1,200 mg capsule,d elayed release 06/17 completed Prescrib ed Elsewher e: Yes [facility] By: everette menjivar DateTime : 03/11/19 12 09:45:00 AM Not Available Not Available Not Available glucosami ne-chondr oitin 500 mg-400 mg-66 mg-3 mg capsule 04/07 completed Prescrib ed Elsewher e: Yes Loca tion: Adalberto joel [facility] odify By: tor menjivar DateTime : 08/30/19 10:30:00 AM Not Available Not Available Not Available Probiotic 3 billion cell capsule 04/07 completed Prescrib ed Elsewher e: Yes Loca tion: Blair maldonado [facility] Claribel odify By: tor ruthunter DateTime : 08/30/19 10:30:00 AM Not Available Not Available Not [...] Updated DateTime 02/28/2024 165.1 cm 25.1 kg/m2 99086.45 g 146/83 mm[Hg] [facility] 02/28/2024 12:01:31 Date Recorded Body height Body mass index (BMI) Body weight Systolic And Diastolic Provider Name and Address Organization Details Last Updated DateTime 03/21/2024 165.1 cm 25 kg/m2 21130.86 g 130/84 mm[Hg] [facility] 03/21/2024 14:55:35 Date Recorded Body height Body mass index (BMI) Body weight Systolic And Diastolic Provider Name and Address Organization Details Last Updated DateTime 05/28/2024 165.1 cm 25.3 kg/m2 26814.04 g 145/80 mm[Hg] [facility] 05/28/2024 12:00:35 Date Recorded Body height Body mass index (BMI) Body weight Systolic And Diastolic Provider Name and Address Organization Details Last Updated DateTime 09/06/2024 165.1 cm 25.1 kg/m2 45655.45 g 173/81 mm[Hg] Toma Carson [facility] 09/06/2024 16:35:56 Date Recorded Body height Body mass index (BMI) Body weight Systolic And Diastolic Provider Name and Address Organization Details Last Updated DateTime 01/09/2024 165.1 cm 25.5 kg/m2 66801.63 g 144/79 mm[Hg] Toma Catherineer [facility] 01/09/2024 15:14:08 Social History Question Answer Notes LastModified by Organizat ion Details LastModified Time Tobacco Smoking Status Never Smoker [facility] 09/02/2022 12:24:30 Do You Have An [...] Or The Highest Degree You Have Received? CL62415-5 Information not available 06/17/2021 Are There Any [...] 06/17/2021 Do You Use Sunscreen Routinely? Yes [email or web address] Information not available 09/19/2023 Has Tobacco Cessation Counseling Been Provided? No [email or web address] Information not available 09/19/2023 Have You Used [...] other forms of tobacco or nicotine? No [email or web address] Information not available 09/19/2023 What is your level of alcohol consumption? Occasional Information not available 06/16/2021 Are you able to walk? YESWOREST Information not available 06/16/2021 Are you able to care for yourself independently? Yes Information not available 09/02/2022 What is your occupation? Retired Information not available 06/17/2021 Do you have difficulty dressing, bathing, grooming, or toileting? No Information not available 09/02/2022 What is your exercise level? Occasional Information not available 06/16/2021 Mental Status Question Answer Note LastModified by Organization D etails LastModified Time Do you feel stressed (tense, restless, nervous, or anxious, or unable to sleep at night)? [id number] [email or web address] Information not available 09/19/2023 Family History Relationship [...] N Drug/Latex Allergies/Reactions N Blood Transfusion N Lung Disease N Dermatologic Disorders N Defects or Inherited Disease N Breast [...] SNOMED-CT Code Diagnosis ICD10 Code Diagnosis Note [id number] Laura Bello [facility] [address] [address] 11/19/2019 12:15:22 11/19/2019 12:53:35 Vaginal dryness 66531946 N89.8 Doing well on Premarin & would like to continue. Time spent in visit is a total of 26 mins with at least 50% of visit consisting of counseling and review of plan of care. Postmenopa usal osteopenia 714720583 M85.80 On Evista currently. Would like to continue. We agreed to re-evaluat e next year when Dexa due in 2020. We discussed taking holiday from this medication if has been on >5yrs or not making progress with this therapy. Consider bone specialist referral moving forward. [employer] 2019 [place]. [id number] Laura Bello , [facility] [address],[facility] [place] [address] 03/25/2020 14:06:42 03/25/2020 15:42:03 Atrophic vaginitis 25081094 N95.2 After much discussion , we realized [...] this patient s visit, including available hand coal tram driver upon arrive, temperatur e check and being asked a series of screening questions. All staff wore face coverings during this encounter, as well as provided additional cleaning and sanitizing of all surfaces, including countertop s, pens, chairs, door handles, light switches, etc, prior to and following the patient s visit. [id number] Danielle Fields MD [facility] [address] [address] 07/01/2020 17:30:37 07/01/2020 21:11:41 Disorder of uterine cervix 92817492 N88.9 Malignant neoplasm of urinary bladder 522638299 C67.9 [id number] [facility] [address] [address] 06/17/2021 11:17:03 06/17/2021 12:04:00 Gynecologic examination 22046346 Z01.419 Take Calcium with Vitamin D 12-1500mg daily. Do monthly self breast exams. It is advised to get annual flu shot in the fall and she could obtain at [facility] or [facility]. If you haven't received the Tdap [...] per medicaid; order given Postmenopa usal osteopenia [id number] M85.80 On Evista currently. Would like to continue. We agreed to re-evaluat e next year when Dexa due in 2020 but Covid deterred this imaging. We discussed taking holiday from this medication if has been on >5yrs or not making progress with this therapy. Consider bone specialist referral moving forward.Wi ll complete Dexa & update on any med changes Postmenopausal state 764 42152 Z78.0 [id number] Laura Bello , [facility] [address],[facility] [place] [address] 04/07/2022 10:33:24 04/08/2022 15:27:26 Vaginal wall prolapse 067323339 N81.4 Vaginal wall/uteri ne grade 2-3 lying [...] counseling and review of plan of care. [id number] Laura Bello [facility] [address],[facility] [place] [address] 04/09/2022 15:07:22 04/09/2022 15:57:52 Anterior vaginal wall prolapse 348725855 N81.4 Today we attempted to fit for [...] current health issues. Uncertain if will need reinsurance clerk or urogyn for this issue. She is in agreement with this plan. Time spent in visit is a total of 15 mins with at least 50% of visit consisting of counseling and review of plan of care. [id number] Amish Vallecillo MD [facility] [address] [address] 04/12/2022 14:39:31 04/12/2022 16:08:49 Prolapse of female genital organs 28287547 N81.9 patient is an 81-year-ol d female [...] mirella neurology. She is going to contact [facility]. This is a group that removed her bladder. Toshagywilfred vu is within that group. Spent over 20 minutes face-to-fa ce. More than 50% was counseling . She will talk to [facility]. [id number] Laura Bello [facility] [address],[facility] [place] [address] 09/02/2022 12:23:08 09/02/2022 12:48:11 Prolapse of female genital organs 47440910 N81.9 See procedure notes.New pessary inserted today. [id number] Laura Bello [facility] [address],[facility] [place] [address] 11/25/2022 10:47:59 11/25/2022 17:00:57 Uterine prolapse 77801054 N81.4 Here today for pessary cleaning x 3mosWill return in 3mos for another cleaning as unable to remove device her self.Will consider every 6mos cleanings after that since removal is so irritation to her thin postmenopa usal skin.Consi elizabeth vaginal estrogen therapy if not contraindi cated moving forward. See procedure notes [id number] Laura Bello [facility] [address],[facility] [place] [address] 03/01/2023 09:40:21 03/01/2023 10:34:57 Prolapse of female genital organs 03491586 N81.9 See procedure notes.Pess kristal cleaned & re-inserte d today. Atrophy of vagina 702121 009 N95.2 Change in medication for vaginal [...] counseling and review of plan of care. [id number] Laura Bello [facility] [address] [address] 05/31/2023 09:36:11 05/31/2023 10:27:40 Prolapse of female genital organs 27689128 N81.9 See procedure notes.Pess kristal cleaned & re-inserte d today. 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 [id number] Amish Vallecillo MD [facility] [address] [address] 09/19/2023 14:57:33 09/19/2023 17:41:37 Prolapse of female genital organs 94668112 N81.9 83-year-ol d female with Pelvic organ prolapse. 0. ring with support was inserted. She tolerated the procedure well. She will follow-up in 3 months [id number] Amish Vallecillo MD [facility] [address],[place] [address] 12/20/2023 11:12:51 12/20/2023 13:51:19 Postmenopausal bleeding 13078310 N95.0 Prolapse o f female genital organs 74614470 N81.9 This patient is a 83 y/o [...] dark vaginal discharge. No fistula was observe. [id number] Amish Vallecillo MD [facility] [address],[place] [address] 12/21/2023 13:46:48 12/21/2023 15:03:22 Postmenopausal bleeding 67359308 N95.0 [id number] Amish Vallecillo MD [facility] [address],[place] [address] 12/21/2023 14:34:25 12/21/2023 21:52:11 [id number] Amish Vallecillo MD [facility] [address],[place] [address] 01/09/2024 14:46:52 01/09/2024 17:08:33 Prolapse of female genital organs 82169164 N81.9 this patient is an 83-year-ol d [...] We will check on this Going forward. [id number] Amish Vallecillo MD [facility] [address] [address] 02/28/2024 11:38:36 03/02/2024 08:51:57 Bacterial vaginosis 354262299 N76.0 Prolapse o f female genital organs 54714194 N81.9 this patient is an 83-year-ol d [...] 20 minutes on the patient's care total. [id number] Amish Vallecillo MD [facility] [address] [address] 03/21/2024 14:47:11 03/21/2024 16:23:49 Prolapse of female genital organs 01219290 N81.9 34-year-ol d female presents for follow-up [...] patient to follow up in 2 months. [id number] Amish Vallecillo MD [facility] [address] [address] 05/28/2024 11:16:55 05/28/2024 12:50:44 Prolapse of female genital organs 82283774 N81.9 This patient is a 83 y/o female who presents for pessary check. She has no complaints with respect to pessary and its performanc e. The pessary was removed and cleaned. The vagina was examined and found to be normal: no ulceration or erosion. The pessary was replaced. The patient agreed to RTC in 3 months. [id number] Amish Vallecillo MD [facility] [address] [address] 09/06/2024 15:37:42 09/07/2024 11:04:24 Midline cystocele 829475416 N81.11 This patient is a 83 y/o female [...] [employer] Member ID Guarantor Name 09/02/2022 1 [facility] (MEDICARE REPLACEMENT/ ADVANTAGE - PPO) [id number] Nikia Zeng [id number] Nikia Zeng 09/03/2024 1 [employer] (MEDICARE REPLACEMENT/ ADVANTAGE - PPO) [id number] Nikia Zeng [id number] Nikia Zeng OBGyn Episode No OBEpisode recorded.
--- OUTSIDE RECORDS SUMMARY | 2024-09-10 08:00 | XMS_ITS | Clinical Summary ---
Author Organization [facility] Address [address] [facility] [place] [address] Care Team Providers Care Conference Interpreter Name Role Phone Dante Franklin MD Primary Care Provider [phone] Source Comments [facility],non-owned Affiliates and Associated Physician Practices is amultiple site organization consisting of ambulatory clinics and hospital sitesin [place] and [place]. This disclosure is being madepursuant to the Care Everywhere program and may not contain all information available regarding this patient. Last updated 17.[facility] Allergies Active Allergy Reactions Criticality Noted Date [...] (one) tablet by mouth once daily Active [place]-3 Fatty Acids (KP Fish Oil) 1200 MG [...] patient's age to complete this topic Insurance * Guarantor: Ace Zeng Account Type Relation to Patient Date of Phone Billing Address Personal/Family Self 1940 [address] [facility] [address] [place] [address] [facility] MEDICARE ADV [employer] MEDICARE ADV Care Teams Conference Interpreter Relationship Specialty Start Date End Date Dante Franklin MD [address] [place] [address] PCP - General 08/08/20
--- OUTSIDE RECORDS SUMMARY | 2024-09-10 08:00 | XMS_ITS | Continuity of Care Document ---
Author Organization [facility] Address [address] [place] [address] [address] [place] [address] Phone Care Team Providers Care Puller Out Name Role Phone Hillman OD, Hussain Unavailable Unavailable Advance Directives Directive Yes / No Effective Date File Name No Information Encounters Encounter Description Practice Location Reason(s) For Visit Diagnoses Date Provider Providers Copied on Encounter [facility], [id number] [place] [address] [address], [place], [place], [id number], [place] tel:[phone] [facility] No Information Mar-2 3-200 6 Hillman OD Hussain. [address] , [address], [place], [address], [place]. tel:[phone] Family History Family Member Type Diagnosis Age At Onset No Information Payers Payer name Insurance type Covered alliance party ID Authoriza tion(s) [employer] SOI CI [id number] Social History Type Description Quantity Date Captured [...]
--- OUTSIDE RECORDS SUMMARY | 2024-09-10 08:00 | XMS_ITS | Referral Summary ---
Author Organization [facility] Address [address] [place] [address] Care Team Providers Care Assembly Inspector Name Role Phone Kyler Diop DO Unavailable [phone] Adan Andrew MD Unavailable [phone] Cyrus Schwartz DO Primary Care Provider [phone] Allergies Active Allergy Reactions Criticality Noted Date [...] Comments Blood Pressure 131/75 04/23/2022 8:31 AM WAREHOUSE COORDINATOR Pulse 104 04/23/2022 8:31 AM WAREHOUSE COORDINATOR Temperature 36.7 C (98 F) 04/23/2022 8:31 AM WAREHOUSE COORDINATOR Respiratory Rate 18 04/23/2022 8:31 AM WAREHOUSE COORDINATOR Oxygen Saturation 94% 04/23/2022 8:31 AM WAREHOUSE COORDINATOR Inhaled Oxygen Concentration - - Weight 66.5 kg (146 lb 9.7 oz) 04/23/2022 8:31 A M WAREHOUSE COORDINATOR Height 165.1 cm (5' 5) 04/23/2022 8:31 AM WAREHOUSE COORDINATOR Body Mass Index 24.4 04/23/2022 8:31 AM WAREHOUSE COORDINATOR Plan of Treatment Not on file Medical Devices Implanted Type Area Trim Operator Device Identifier Shelf Expiration Date Model / Serial / Lot SiO2 Factory Raymond 160-210 7fr 80cm Open Tip Luer Lock Adapter Guidewire Graduate Straight Latex Free - [id number] Implanted:Qty: 2 on 11/17/2020 by Adan Andrew MD at [facility] Bilateral: Ureter [place] [employer] Raymond 07/17/2024 160-210 / / [id number] Insurance [facility] MEDICARE ADVANTAGE [facility] MEDICARE UHC MEDICARE ADVANTAGE Advance Directives For more information, please contact: [phone] Documents on File Type Date Recorded Patient Surveillance Observer Expl anation Power of Dirt Bike Racer 11/17/2020 5:38 AM * Full Code (Latest Code Status on File) Date Activated Date Inactivated Comments 11/17/2020 5:11 PM 11/22/2020 6:17 PM Care Teams Assembly Inspector Relationship Specialty [place] [address] [place] [address] PCP - General Internal Medicine 8/12/22 [place] [address] [place] [address] MEDICAL ONCOLOGY, [address] [address] Medical Oncologist/Program Support Specialist Hematology and Oncology 08/19/20 [place] [address] [place] [address] Consulting Physician Urology 11/22/20
--- OUTSIDE RECORDS SUMMARY | 2024-09-10 08:01 | XMS_ITS | Data Portability ---
Author Organization [place] [email or web address], Main Office Address [address] [place] [address] Care Team Providers Care Feeder Worker Power Unit Operator Name Role Phone JONI ELKINS Primary Care Provider JONI ELKINS Referring Provider [phone] Assessment Encounter Date Assessment Date Assessment LastModified [...] with more than half of this in dosg-vt-glda conversation Not available 04/04/2023 16:35:36 Plan of Treatment Reminders Order Date Submit Date Provider Last Modified By Organization Details Last Modified Time Details Appointments None record ed. Lab None record ed. Referral None record ed. Procedures None record ed. Surgeries None record ed. Imaging XR, knee 024 04/04/19 24 [facility], [address], [place], [address], 4 19:20:15 Medication Orders None record ed. Patient TargetsNo targets recorded. Patient InstructionsNo instructions recorded. Reason for Referral None Reported. Results Created Date Observation Date Name Description Value Unit Range Abnormal Flag Note LastModifiedBy Organization Detail LastModifiedTime 04/04/19 24 XR, knee No observ ation record ed. [facility] [address] [facility] [address], [place], [address], 04/04/2023 16:32:28 Result Notes None recorded. 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 Procedures Surgical History Date Name Laterality Status Provider Name and Address Organization Details Recorded Time Appendectomy completed ABEL Grace [facility] [employer] [facility] 04/04/2023 16:03:31 Bladder completed ABEL Grace [place] [facility] [employer] [facility] 04/04/2023 16:03:40 Imaging Results None recorded. Procedure Notes None [...] Updated DateTime 04/04/2023 165.1 cm 24.1 kg/m2 31076.89 g ABEL Grace [facility] 04/04/2023 16:11:10 Social History None recorded. Functional Status Question Answer Note LastModified by Organizat ion Details LastModified Time What is your level of alcohol consumption? Occasional [email or web address] Information not available 04/04/2023 Mental Status None recorded. Family History Relationship Description Onset Age of this Age Resolved Age Notes LastModified by Organization Details LastModified Time Father Heart disease [email or web address] Not available 2023 16:03:00 Mother Heart disease [email or web address] Not available 2023 16:03:00 Mother Hypertensive disorder [email or web address] Not available 2023 16:03:13 Medical History Condition Response CANCER: SPECIFY Y URINARY/BLADDER/KIDNEY PROBLEMS Y Gynecological HistoryNo gynecological history recorded. Obstetrics History GPAL:G 0 P 0 0 0 0 Past Encounters Encounter ID Performer Location Encounter Start Date Encounter Closed Date Diagnosis/Indication Diagnosis SNOMED-CT Code Diagnosis ICD10 Code Diagnosis Note [id number] Jose Maria Neves MD [facility] [address] [facility] [address] [place] [id number] 04/04/2023 15:40:23 04/04/2023 16:38:04 Pain of right knee joint [id number] 86510 M25.561 Health Concerns Section Related Observation LastModified by Organization Detai ls LastModified Time None Recorded Concern Status LastModified by Organization Details LastModified Time None Recorded Advance Directives Directive None Recorded Payers Insurance Date Sequence Insurance Name Policy Number Policy Encinas Covered Member ID Encinas Member ID Guarantor Name 04/11/2023 1 [employer] (MEDICARE REPLACEMENT/ ADVANTAGE - PPO) [id number] 1 Nikia Zeng [id number] Nikia Zeng 03/14/2023 1 [facility] (MEDICARE REPLACEMENT/ ADVANTAGE - PPO) [id number] Nikia Zeng [id number] Nikia Zeng OBGyn Episode No OBEpisode recorded.
--- OUTSIDE RECORDS SUMMARY | 2024-09-10 08:01 | XMS_ITS | Clinical Summary ---
Author Organization [facility] Address [facility] [place] [address] Care Team Providers Care Critical Care Educator Name Role Phone None, Provider Primary Care [...] Weight - - Height 167.6 cm (5' 6) 11/23/2020 3:41 PM CDT Body Mass Index - - Plan of Treatment Health Maintenance Due Date Last Done Comments DTaP, Tdap and Td Vaccines ( 1 - Tdap) 1960 Pneumococcal Vaccine: 50+ Years (1 of 1 - PCV) 06/22/1991 Annual Medicare Wellness Visit 2006 Dexa Scan (General) 2006 RSV Immunization or 60+ Years (1 [...] age to complete this topic Insurance MED [facility] MEDICARE Care Teams Critical Care Educator Relationship Specialty Start Date End Date None, Provider, PCP - General 11/23/20
--- OUTSIDE RECORDS SUMMARY | 2024-09-10 08:01 | XMS_ITS | Clinical Summary ---
Author Organization [facility] Address [address] [place] [address] Care Team Providers Care Safe And Vault Mechanic Name Role Phone Kyler Diop DO Unavailable [phone] Adan Andrew MD Unavailable [phone] Cyrus Schwartz DO Primary Care Provider [phone] Allergies Active Allergy Reactions Criticality Noted Date [...] ypT0, pN0, cM0 - Signed by Kyler Dipo DO on 12/07/2020 Orthostatic hypotension Anemia Immunizations [...] Comments Blood Pressure 131/75 04/23/2022 8:31 AM SALES TECHNICIAN HOME THEATER Pulse 104 04/23/2022 8:31 AM SALES TECHNICIAN HOME THEATER Temperature 36.7 C (98 F) 04/23/2022 8:31 AM SALES TECHNICIAN HOME THEATER Respiratory Rate 18 04/23/2022 8:31 AM SALES TECHNICIAN HOME THEATER Oxygen Saturation 94% 04/23/2022 8:31 AM SALES TECHNICIAN HOME THEATER Inhaled Oxygen Concentration - - Weight 66.5 kg (146 lb 9.7 oz) 04/23/2022 8:31 A M SALES TECHNICIAN HOME THEATER Height 165.1 cm (5' 5) 04/23/2022 8:31 AM SALES TECHNICIAN HOME THEATER Body Mass Index 24.4 04/23/2022 8:31 AM SALES TECHNICIAN HOME THEATER Plan of Treatment Health Maintenance Due Date [...] 02/01/2020, 11/19/2019 Medical Devices Implanted Type Area Digital Production Operator Device Identifier Shelf Expiration Date Model / Serial / Lot [employer]Dog Fetch Raymond 160-210 7fr 80cm Open Tip Luer Lock Adapter Guidewire Graduate Straight Latex Free - [id number] Implanted:Qty: 2 on 11/17/2020 by Adan Andrew MD at [facility] Bilateral: Ureter [employer] Raymond 07/17/2024 160-210 / / [id number] Insurance [facility] MEDICARE ADVANTAGE [facility] MEDICARE [facility] MEDIC[facility] Address: [address] [place] [address] [facility] MEDICARE ADVANTAGE Advance Directives For more information, please contact: [phone] Documents on File Type Date Recorded Patient Rural Electrification Engineer Expl anation Power of Supervisor Dry Cell Assembly 11/17/2020 5:38 AM * Full Code (Latest Code Status on File) Date Activated Date Inactivated Comments 11/17/2020 5:11 PM 11/22/2020 6:17 PM Care Teams Safe And Vault Mechanic Relationship Specialty [place] [address] [place] [address] PCP - General Internal Medicine 09/25/21 Kyler Diop DO [address] [place] [address] MEDICAL ONCOLOGY, [address] [address] Medical Oncologist/Merchandise Executive Hematology and Oncology 08/19/20 [place] [address] [place] [address] Consulting Physician Urology 11/22/20
[2024-09-10 08:32] LABS: Hematocrit 40.6 % (37.0-47.0); Hemoglobin 12.7 g/dL (12.0-15.0); Immature Granulocyte Percent A 0.4 % (0-0.5); Lymphocytes Absolute Auto 2.06 K/mm3 (0.9-3.2); Mean Corpuscular HGB Conc 31.3 g/dl (32-36); Mean Corpuscular Hemoglobin 28.1 pg (26-34); Mean Corpuscular Volume 89.8 fl (80-100); Nucleated Red Blood Cells Absolute Auto 0.000 K/mm3 (0.0-0.012); Nucleated Red Blood Cells Perc 0.0 % (0.0-0.2); Platelet Count Result 284 k/mm3 (150-375); Red Blood Count 4.52 M/mm3 (4.2-5.4); White Blood Count 7.7 K/mm3 (4.5-10.0)
[2024-09-11 14:08] LABS: Folate, Hemolysate >620.0 ng/mL (Not Estab.); Folate, RBC >1487 ng/mL (>498); Hematocrit 41.7 % (34.0-46.6)
== END 2024-09-10 07:52 | disposition home or self-care (01) ==
LOC: ANHLAB 07:53
PROVIDERS: PCP Nurse Practitioner Family; Visit Provider Internal Medicine Medical Oncology
DX: C67.9 Malignant neoplasm of bladder, unspecified (principal)
CPT/HCPCS: 36415; 82747; 85025

== ENCOUNTER 2024-11-20 08:13 | Outpatient (CLI) | payer MEDICARE, SELFPAY ==
--- OUTSIDE RECORDS SUMMARY | 2005-05-06 10:15 | XMS_ITS | Continuity of Care Document ---
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 [address] , [address], [place], [address], [place]. tel:[phone] Family History Family Member Type Diagnosis Age At Onset No Information Payers Payer name Insurance type Covered republican ID Authoriza tion(s) [employer] SOI CI [id number] Social History Type Description Quantity Date Captured Comments Sex Female Smoking Status No Information Chief Complaint And Reason For Visit No Information Reason For Referral Reason For Referral No Information History Of Present Illness Encounter Date Complaint History Of Prese nt Illness No Information Functional Status Date Functional Assessmen t No Information Instructions Date Instruction Additional Infor mation No Information Assessments Type Assessment Date No Information Patient Care Teams Name Effective Dates (start - stop) Status Members No Information
--- OUTSIDE RECORDS SUMMARY | 2024-11-20 08:22 | XMS_ITS | Clinical Summary ---
Author Organization [facility] Address [address] [place] [address] Care Team Providers Care Soil Tester Name Role Phone Kyler Diop DO Unavailable [phone] Adan Andrew MD Unavailable [phone] Cyrus Schwartz DO Primary Care Provider [phone] Allergies Active Allergy Reactions Criticality Noted Date [...] Encounters Date Type Department Care Team Description 09/17/[address] [facility] Medicine Physicians [facility] Oncology [address] [place] [phone] Carola Alarcon RN Malignant neoplasm of urinary bladder, unspecified site (HCC) (Primary Dx) 09/14/2024 4:[address] [facility] Medicine Physicians [facility] Oncology [address] [place] [phone] Kyler Diop DO Malignant neoplasm of urinary bladder, unspecified site (HCC) (Primary Dx) 09/13/[address] [facility] Medicine Physicians [facility] Oncology [address] [place] [phone] Lor Velasquez MD 09/10/[address] [facility] Medicine Physicians [facility] Oncology [address] [place] [address] [address] [place] [address] Provider, MD Lor from Last [...] Comments Blood Pressure 131/75 04/23/2022 8:31 AM BUSINESS PROCESS REPRESENTATIVE Pulse 104 04/23/2022 8:31 AM BUSINESS PROCESS REPRESENTATIVE Temperature 36.7 C (98 F) 04/23/2022 8:31 AM BUSINESS PROCESS REPRESENTATIVE Respiratory Rate 18 04/23/2022 8:31 AM BUSINESS PROCESS REPRESENTATIVE Oxygen Saturation 94% 04/23/2022 8:31 AM BUSINESS PROCESS REPRESENTATIVE Inhaled Oxygen Concentration - - Weight 66.5 kg (146 lb 9.7 oz) 04/23/2022 8:31 A M BUSINESS PROCESS REPRESENTATIVE Height 165.1 cm (5' 5) 04/23/2022 8:31 AM BUSINESS PROCESS REPRESENTATIVE Body Mass Index 24.4 04/23/2022 8:31 AM BUSINESS PROCESS REPRESENTATIVE Plan of Treatment Health Maintenance Due Date Last Done Comments Depression Screening 1941 Osteoporosis Screening-Bone Density Scan 1941 DTaP/Tdap/Td Vaccine (1 - Tdap) 1952 Hepatitis B Screening 06/22/1959 Pneumococcal vaccine 65+ (1 of 1 - PCV) 06/22/1991 Well Visit 65+ 2006 Fall Risk Assessment 11/22/2021 11/22/2020 Covid-19 Vaccine ( season) 2024 01/14/2021, 05/05/2020, 04/03/2020 Influenza Vaccine (#1) 2024 2, 01/14/2021, 11/19/2019 Zoster Vaccine Completed 02/01/2020, 11/19/2019 Medical Devices Implanted Type Area Steel Handler Device Identifier Shelf Expiration Date Model / Serial / Lot [employer] Raymond 160-210 7fr 80cm Open Tip Luer Lock Adapter Guidewire Graduate Straight Latex Free - [id number] Implanted:Qty: 2 on 11/17/2020 by Adan Andrew MD at [facility] Bilateral: Ureter [place] [employer] Raymond 07/17/2024 160-210 / / [id number] Procedures Procedure Name Priority Date/Time Associated Diagnosis Comments CBC WITH AUTO DIFFERENTIAL Routine 09/10/2024 11:[address] ABDOMEN PELVIS WO CONTRAST Schedule Routine, Read Routine (OP Routine) 09/05/2024 9:01 AM CDT from Last 3 Months Results * CBC with auto differential (09/10/2024 11:57 AM CDT) Blood us Historical Provider LAB BLOOD ORDERABLES Bhavna alvarez Result EXTERNAL LAB * CT Abdomen Pelvis WO Contrast (09/05/2024 9:01 AM CDT) Anatomical Region Laterality Modality Body N/A Computed Tomogra phy Historical Provider IMG CT PROCEDURES Final R esult from Last 3 Months Insurance [facility] MEDICARE ADVANTAGE [employer] MEDICARE [facility] MEDICARE ADVANTAGE Advance Directives For more information, please contact: [phone] Documents on File Type Date Recorded Patient Marketing Specialist Expl anation Power of Tobacco Packing Machine Operator 11/17/2020 5:38 AM * Full Code (Latest Code Status on File) Date Activated Date Inactivated Comments 11/17/2020 5:11 PM 11/22/2020 6:17 PM Care Teams Soil Tester Relationship Specialty [place] [address] [place] [address] PCP - General Internal Medicine 09/25/21 Kyler Diop DO [address] [place] [address] MEDICAL ONCOLOGY, [address] [address] Medical Oncologist/Meat Supervisor Hematology and Oncology 08/19/20 [place] [address] [place] [address] Consulting Physician Urology 11/22/20
--- OUTSIDE RECORDS SUMMARY | 2024-11-20 08:22 | XMS_ITS | Clinical Summary ---
Author Organization [facility] Address [facility] [place] [address] Care Team Providers Care Eye Dropper Assembler Name Role Phone None, Provider Primary Care [...] 75+ series) 2016 COVID-19 Vaccine (3 - 2024-2 6 season) 2024 05/05/2020, 04/03/2020 Influenza Adult (#1) 2024 11/19/2019 Zoster Vaccines Completed 02/01/2020, 11/19/2019 Meningococcal B Vaccine Aged Out No l onger eligible based on patient's age to complete this topic Meningococcal Vaccine Aged Out No azar elizabeth eligible based on patient's age to complete this topic RSV Immunizations Under 20 Months Aged Out No longer eligible b ased on patient's age to complete this topic Insurance MED [facility] MEDICARE Care Teams Eye Dropper Assembler Relationship Specialty Start Date End Date None, ProviderMD PCP - General 11/23/20
--- OUTSIDE RECORDS SUMMARY | 2024-11-20 08:22 | XMS_ITS ---
Author Organization [facility] Address [address] [place] [address] Care Team Providers Care Newspaper Correspondent Name Role Phone Kyler Diop DO Unavailable [phone] Adan Andrew MD Unavailable [phone] Cyrus Schwartz DO Primary Care Provider [phone] Active Problems Problem Noted Date Diagnosed Date [...]
--- OUTSIDE RECORDS SUMMARY | 2024-11-20 08:22 | XMS_ITS | Clinical Summary ---
Author Organization [facility] Address [address] [place] [address] Care Team Providers Care Software Architect Name Role Phone Dante Franklin MD Primary Care Provider [phone] Source Comments [facility],non-owned Affiliates and Associated Physician Practices is amultiple site organization consisting of ambulatory clinics and hospital sitesin [place], [place], [place] and [place]. This disclosure is being madepursuant to the Care Everywhere program and may not contain all information available regarding this patient. Last updated 17.[facility] Allergies Active Allergy Reactions Criticality Noted Date [...] (one) tablet by mouth once daily Active Victoria-3 Fatty Acids (KP Fish Oil) 1200 MG [...] yrs (1 - 1-dose 75+ series) 2016 DEPRESSION SCREENING 02/15/2024 MEDICARE AWV CALENDAR YEAR 2024 COVID-19 VACCINE ( - 2024-2 6 season) 2024 01/14/2021, 05/05/2020, 04/03/2020 INFLUENZA VACCINE (#1) 2024 2, 01/14/2021 HEPATITIS [...] patient's age to complete this topic Insurance [facility]IC[facility] AD[facility] Care Teams Software Architect Relationship Specialty Start Date End Date Dante Franklin MD [address] [place] [address] PCP - General 08/08/20
[2024-11-20 08:38] LABS: Hematocrit 38.2 % (37.0-47.0); Hemoglobin 12.2 g/dL (12.0-15.0); Mean Corpuscular HGB Conc 31.9 g/dl (32-36); Mean Corpuscular Hemoglobin 28.7 pg (26-34); Mean Corpuscular Volume 89.9 fl (80-100); Platelet Count Result 246 k/mm3 (150-375); Red Blood Count 4.25 M/mm3 (4.2-5.4); White Blood Count 8.5 K/mm3 (4.5-10.0)
[2024-11-20 09:01] LABS: Alanine Aminotransferase 19 U/L (6-35); Albumin Level 3.9 g/dL (3.5-5.1); Alkaline Phosphatase 63 U/L (38-126); Anion Gap 6 mmol/L (4-12); Aspartate Amino Transferase 28 U/L (14-36); Bilirubin,Total 0.4 mg/dL (0.2-1.3); Blood Urea Nitrogen 18 mg/dL (7-17); Calcium 9.1 mg/dL (8.4-10.2); Carbon Dioxide 23 mmol/L (22-30); Chloride 107 mmol/L (98-107); Cholesterol 196 mg/dL (0-200); Estimated Glomerular Filt Rate 42; Glucose 99 mg/dL (65-110); HDL Direct 68 mg/dL; Magnesium 2.4 mg/dL (1.6-2.3); Potassium 4.3 mmol/L (3.4-5.0); Sodium 136 mmol/L (137-145); Total Protein 7.2 g/dL (6.3-8.2); Triglycerides 153 mg/dL (<150)
[2024-11-20 10:12] LABS: Vitamin B12 395.0 pg/mL (239-931)
[2024-11-20 10:26] LABS: MALB Creatinine Ratio 132.7 mg/g (0-30)
[2024-11-27 13:09] LABS: Summary Report (Summary) FINAL (.)
== END 2024-11-20 08:14 | disposition home or self-care (01) ==
PROVIDERS: PCP Nurse Practitioner Family; Visit Provider Nurse Practitioner Family
DX: E55.9 Vitamin D deficiency, unspecified (principal); E78.5 Hyperlipidemia, unspecified; N18.32 Chronic kidney disease, stage 3b; K21.9 Gastro-esophageal reflux disease without esophagitis; F41.9 Anxiety disorder, unspecified; M81.0 Age-related osteoporosis without current pathological fracture; C67.9 Malignant neoplasm of bladder, unspecified; M54.2 Cervicalgia; I12.9 Hypertensive chronic kidney disease with stage 1 through stage 4 chronic kidney disease, or unspecified chronic kidney disease
CPT/HCPCS: 36415; 80053; 80061; 80307; 82043; 82306; 82607; 82746; 83735; 85027